=== PATIENT | male | born 1945 | race Caucasian/White ===

== ENCOUNTER → 2024-03-26 08:52 | Outpatient (REF) | payer OTHER, SELFPAY | LOC: HWRAD 08:52 | PROVIDERS: ATTENDING PHYSICIAN Internal Medicine Cardiovascular Disease; FAMILY PHYSICIAN Family Medicine | DX: I65.21 Occlusion and stenosis of right carotid artery (principal) | CPT/HCPCS: 93880 ==

== ENCOUNTER 2024-04-09 16:40 | Inpatient (IN) | payer OTHER, SELFPAY ==
[2024-04-09 14:33] VITALS: BP 189/115
[2024-04-09 14:56] LABS: % Basophils 1.1 % (0-2); % Eosinophils 2.5 % (0-6); % Immature Granulocytes 0.3 % (0-0.5); % Lymphocytes 23.2 % (20.5-51.1); % Monocytes 9.6 % (1.7-9.3); % Neutrophils 63.3 % (42.2-75.2); Absolute Basophils 0.1 10^3/uL (0-0.2); Absolute Eosinophils 0.2 10^3/uL (0-0.7); Absolute Lymphocytes 2.1 10^3/uL (1.2-3.4); Absolute Monocytes 0.9 10^3/uL (0.1-0.6); Absolute Neutrophils 5.6 10^3/uL (1.4-6.5); Hematocrit 41.9 % (39.0-52.0); Hemoglobin 14.2 g/dL (13.0-18.0); Mean Corp Hgb Conc. 33.9 g/dL (33.0-37.0); Mean Corpuscular Hgb 28.5 pg (27.0-31.0); Mean Platelet Volume 10.1 fL (7.4-10.4); Nucleated Red Blood Cells % 0 % (-); Platelet Count 307 10^3/uL (130-400); Red Blood Cell Count 4.99 10^6/uL (4.70-6.10); Red Cell Dist. Width 14.6 % (11.5-14.5); White Blood Cell Count 8.8 10^3/uL (4.8-10.8)
[2024-04-09 15:13] LABS: ALT (SGPT) 35 U/L (0-50); AST (SGOT) 35 U/L (17-59); Albumin 4.3 g/dl (3.5-5.0); Alkaline Phosphatase 93 U/L (38-126); Blood Urea Nitrogen 19 mg/dl (9-20); Calcium 10.3 mg/dl (8.4-10.2); Carbon Dioxide 27 mmol/L (22-30); Chloride 105 mmol/L (98-107); Glucose 103 mg/dl (70-99); Potassium 4.8 mmol/L (3.5-5.1); Sodium 140 mmol/L (135-145); Total Bilirubin 0.6 mg/dl (0.2-1.3); Total Protein 7.2 g/dl (6.3-8.2); eGFR > 60.00
[2024-04-09 15:25] LABS: Troponin I < 0.012 ng/ml
[2024-04-09 15:34] LABS: APTT 33.1 Sec (23.4-35.0)
--- NOTE | 2024-04-09 15:39 | HPS.HSE ---
Addendum entered and electronically signed by Maddy Muro MD 04/09/24 17:00:
I saw and examined the patient.
The HEAD OF LOSS PREVENTION's note was reviewed and I agree with the note.
Comment: Patient with known CAD prior PCI, HDL, JOSE ANGEL s/p cartoid stenting now with cp. He has a high risk stress test today. Currently cp free but with cp just walking around. RRR, lungs cta no le edema. Stress lexiscan, marked ecg changes but no
stress images taken. Trop negative. will plan for cath in am for UA.
Original Note:
Family Physician
-
Family Physician: Dr. Marcial Barney
Railroad Surveyor: Dr. Kyree Ordonez
Chief Complaint
-
Chest pain
History of Present Illness
Louis Colorado is an 78-year-old male with CAD (cardiac arrest with BMS to circumflex 2009, complex RCA intervention 2020), dyslipidemia (statin intolerant), asthma, prediabetes, mild mitral regurgitation, and right ICA stenosis s/p stenting
(11/23/2023), saw Dr. Ordonez in the outpatient setting earlier this month and endorsed upper back pain that radiated into his jaw with exertion. He was found to have a significantly abnormal stress test and was referred to the ER for full
evaluation. He reports for the past few weeks he has been having anterior upper back pain. It radiates up his neck and into his jaw. This happens when he goes for walks. He is having pain 2-3 times per week. He has not taken any nitroglycerin.
He gets some relief when he puts his arms over his head. He gets full relief with rest. He denies associated symptoms of diaphoresis, nausea, and dizziness. He is currently chest pain-free.
Medical History
Past Medical History
Past Medical History: Reports Asthma, CAD, HTN and Hypercholesterolemia
Past Surgical History: Reports None and Other
Social History
Tobacco: Smoker (Cigar)
Drug: None
Personal:
Living: With Family
Employment: Retired
Family History
Family History: Not pertinent
Allergies / Home Medications
Allergies reflects when Allergies were last updated in [facility].
Home Medications with original date entered in [facility]
Allergy/Medication List:
Allergies:
Statins cause myalgias
Home medication list: Vitamin C 1000 mg daily
Aspirin 325 mg daily
Clopidogrel 75 mg daily
CO every 10 100 mg daily
Colchicine 0.6 mg p.o. daily as needed gout flare
Diltiazem 180 mg daily
Advair 1 inhalation twice daily as needed shortness of breath
Irbesartan 150 mg p.o. daily
Multivitamin 1 tablet p.o. daily
Fish oil 1 capsule p.o. daily
Turmeric root 500 mg p.o. daily
Nitroglycerin 0.4 mg sublingual every 5 minutes x 3 as needed chest pain
Review of Systems
-
History Source: Patient
A 12 point ROS was completed and negative except as noted: Yes
Constitutional: Reports No Symptoms
EENT: Reports No Symptoms
Respiratory: Reports No Symptoms
Cardiac: Reports See HPI
Abdomen/GI: Reports No Symptoms
: Reports No Symptoms
Musculoskeletal: Reports See HPI
Skin: Reports No Symptoms
Neurological: Reports No Symptoms
Endocrine: Reports No Symptoms
Hematologic/Lymphatic: Reports No Symptoms
Psych: Reports No Symptoms
Physical Exam
Vital Signs
Vital Signs
Temp Pulse Resp BP Pulse Ox
98.3 F 80 18 189/115 97
04/09/24 14:33 04/09/24 14:33 04/09/24 14:33 04/09/24 14:33 04/09/24 14:33
Physical Exam
General: Well Developed, Well Nourished, No Apparent Distress, Comfortable and Conversant
HEENT: NormoCephalic, Anicteric, Moist mucous membranes and Atraumatic
Respiratory: Clear and Non Labored Respirations
Cardiac: S1/S2 and Regular Rhythm; No Murmur or Peripheral Edema
Breast: Deferred by me
GI: Soft, Non Tender, Non Distended and Normal Bowel Sounds
Rectal: Deferred by Provider
Genito-urinary: Deferred by me
Musculoskeletal: No Clubbing, No Cyanosis and No Edema
Skin: Warm and Dry
Hematologic/Lymphatic: No Lymphadenopathy
Psych: Calm
Laboratory Results
-
04/09/24 14:42
04/09/24 14:42
Laboratory Results
Total Bilirubin 0.6 mg/dl (0.2-1.3) 04/09/24 14:42
AST 35 U/L (17-59) 04/09/24 14:42
ALT 35 U/L (0-50) 04/09/24 14:42
Alkaline Phosphatase 93 U/L (38-126) 04/09/24 14:42
Troponin I < 0.012 ng/ml 04/09/24 14:42
Data Reviewed
-
Diagnostic Radiology: Report Reviewed by me (EKG: Sinus rhythm, rate 78)
Medical Tests (Nuc Med, Echo, EKG etc): Report Reviewed by me (Prior cardiac catheterizations and echo as above.)
Lab Data: Labs Reviewed by me
Old Records: Reviewed
Impression/Plan
-
BACKGROUND: 78M with CAD, dyslipidemia (statin intolerant), asthma, prediabetes, mild mitral regurgitation, and right ICA stenosis s/p stenting (11/23/2023), saw Dr. Ordonez in the outpatient setting earlier this month and endorsed upper back pain
that radiated into his jaw with exertion. He was found to have a significantly abnormal stress test and was for to the ER for full evaluation.
Railroad Surveyor: Formerly Dr. Brooks, now Dr. Ordonez
IMPRESSION/PLAN:
ACS
-Marked abnormal stress (3-4mm ST depression inferolateral & 2-3mm ST elevation in AVR) with chest pain
-Continue aspirin and start heparin gtt
-Chest pain free, will start nitroglycerin gtt if needed
-Trend EKG and troponin
-No beta yury due to wheezing in the past (asthma)
-NPO after midnight, cardiac catheterization tomorrow
-Echocardiogram
CAD
-Cardiac arrest 10/2010 with BMS to circumflex
-Shortness of breath 01/2021 with complex RCA intervention & periprocedural OR
-Statin intolerant, refused PCSk9 in the outpatient setting
HTN, triage BP 189/115, follow
Asthma
Type II DM, update Hgba1c
Right ICA stenosis S/P stenting (11/23/2023), on DAPT
HLD, intolerance to statin (myalgia), refused PCSK9 in the outpatient setting, update fasting lipid panel
Mild mitral regurgitation
SUBJECTIVE:
Currently chest pain free.
[2024-04-09 16:06] VITALS: BMI 27.1
--- NOTE | 2024-04-09 16:21 | ED.GENMED ---
History of Present Illness
General
Chief Complaint: Cardiac Symptoms
Source: patient
Time Seen by Provider: 04/09/24 15:51
Travel History
Have you had any contact with someone who has COVID-19?: No
Do you have any symptoms of coronavirus? Fever > 100 degrees, chills, cough, shortness of breath, sore throat, loss of taste or smell, muscle aches, or headache?: No
History of Present Illness
History of Present Illness:
78-year-old male presents to the emergency room after being referred here by cardiology. Patient was initially seen by cardiology in early March for upper back and neck pain which did not occur with exertion. Stress test was arranged for today.
During his stress test the patient developed chest pain and had significant EKG changes which included ST depression inferiorly. Chest discomfort went away with rest. Patient does have a history of coronary artery disease with multiple stents.
Currently patient is pain-free. Patient states he was having upper back pain and neck pain which occurred when walking between 1/4 mile to half a mile.
Past History
Past History
ED Past Medical History: None
ED Past Surgical History: None
Social History
Tobacco: Non-smoker
Phy Exam
Physical Exam
Physical Exam:
General: Awake, Alert, Oriented X3. No acute distress.
Vitals: unremarkable
Head: Atraumatic
Eyes: Pupils equal, EOMI
Throat: Airway intact, no exudates
Neck: Trachea midline
Lungs: Clear and equal b/l
Heart: Regular rate, no murmurs
Abd: Soft, Nontender, No pulsatile mass
Neuro: Nonfocal
Skin: Warm, dry, no rash
Extremities: pulses equal b/l, no edema
Course
Orders/Labs/Results
Orders:
Orders
04/09/24 14:37
Electrocardiogram (*1) Urgent
Reason for Study: Chest Pain
EKG- Treatment ONCE
CR Chest - 2 Views Urgent
Comment:
Reason For Exam: chest pain
04/09/24 14:42
Complete Blood Count/With Diff Urgent
Comprehensive Metabolic Panel Urgent
PTT Urgent
Troponin I Urgent
04/09/24 Dinner
Cholesterol Lowering
At Your Request: Full Participation
Cholesterol Lowering: Sodium, 2 Gram
04/09/24 15:32
Admit/Transfer Patient As Directed
Co-Sign Provider:
Level of Care: Inpatient admission
Assign to:: IVU
Physician / Group: CBC
Diagnosis: ACS
Reason for Hospitalization: Progressive angina
Expected length of stay greater than two midnights?: Yes
ELOS- Estimated Length of Stay in days: 3
I certify the patient meets the requirements for IP care: Yes
04/09/24 15:33
Code Status As Directed
Resuscitation Status: Full Code
04/09/24 16:18
Heparin Protocol- PTT Orders As Directed
PTT per Heparin protocol: -Obtain CBC and baseline PTT - if not already collected.
-Obtain PTT 6 hours from start of infusion. Then, every 6 hours until 2 consecutive
PTT's are therapeutic. Then, PTT Daily.
-With each rate change, obtain PTT every 6 hours until 2 consecutive PTT's are
therapeutic. Then, PTT Daily.
Notify MD As Directed
Notify physician if: PTT is greater than or equal to 200.
04/09/24 16:19
Heparin 4,000 units IV NOW STA
Nursing to Place Non Medication Order As Directed
Physician Order: PTT 6 hours after initial start of Heparin infusion
Above order entered?: Yes
04/09/24 16:30
Heparin 85001 Units/250 ml 25,000 units in 250 ml IV PER PROTOCOL
Weight to be used for heparin protocol in kilograms (kg):: 78.3
Protocol:: Cardiac Tx/Acute Coronary
PTT Goal Range to be used:: PTT 73 to 111 seconds
Order type:: Initial
INITIAL Infusion Dose (UNITS/KG/hr) & then follow protocol:: 12 units/kg/hr
Infusion Dose in UNITS/hr & then follow protocol (UNITS/hr):: 950
INFUSION RATE in mL/hr & then follow protocol (mL/hr):: 9.5
PTT less than or equal to 64 seconds:: Increase rate by 200 units/hr (+ 2 mL/hr)
PTT 64.1 to 72.9 seconds:: Increase rate by 100 units/hr (+ 1 mL/hr)
PTT 73 to 111 seconds:: Target Range. No change in rate.
PTT 111.1 to 130.9 seconds:: Decrease rate by 100 units/hr (- 1 mL/hr)
PTT 131 to 199.9 seconds:: HOLD for 1 hr. Then decrease rate by 200 units/hr (- 2 mL/hr)
PTT greater than or equal to 200 seconds:: HOLD for 2 hrs & Notify Provider. Then decrease by 200 units/hr (-
2 mL/hr)
Lab follow-up:: Each change, PTT q6h until 2 consecutive are therapeutic. Then PTT
daily.
04/09/24 17:00
Flush (0.9% Sodium Chloride) [Flush (Nss)] See Dose Instructions IV PER PROTOCOL
04/09/24 20:45
Electrocardiogram (*1) Q6H
Reason for Study: Chest Pain
Comment: at admission and Q6H for total of 3, to be done with each troponin
Acetaminophen [Tylenol] 650 mg PO Q4HPRN PRN
04/09/24 20:45
Echo 2D MMode Color/Doppler Routine
Reason for Study: chest pain
VTE Contraindication Routine
VTE Mechanical Device Contraindication: Medical Contraindication
Pharmocologic Contraindication: Medical Contraindication
Activity As Directed
Activity Level: Bathroom Privileges
ECG as needed As Directed
ECG as needed for:: Chest Pain
INT (Intravenous Needle Therapy) As Directed
Comment: maintain peripheral IV access
Intake/ Output As Directed
Frequency: Per unit guidelines
Vital Signs As Directed
Frequency: q4h
Weight As Directed
Frequency: Once
Type of Scale: Standing Scale
04/09/24 21:48
Glycohemoglobin (HgbA1c) Routine
Troponin I Q6H
Comment: at admit & Q3H for 3 total including ED draws, obtain ECG with each level
04/10/24 02:45
Electrocardiogram (*1) Q6H
Reason for Study: Chest Pain
Comment: at admission and Q6H for total of 3, to be done with each troponin
Troponin I Q6H
Comment: at admit & Q3H for 3 total including ED draws, obtain ECG with each level
04/10/24 Breakfast
NPO
Allow oral meds: Yes
Allow clear liquids: No
NPO with Ice Chips: No
NPO for procedure after (time): Midnight for cardiac cath
Cardiovascular Evaluation IN AM
04/10/24 08:45
Electrocardiogram (*1) Q6H
Reason for Study: Chest Pain
Comment: at admission and Q6H for total of 3, to be done with each troponin
04/11/24 06:00
Complete Blood Count/No Diff Q2D
Comment: Notify MD if platelet count is <130,000 or decreases by 50% from baseline
04/13/24 06:00
Complete Blood Count/No Diff Q2D
Comment: Notify MD if platelet count is <130,000 or decreases by 50% from baseline
04/15/24 06:00
Complete Blood Count/No Diff Q2D
Comment: Notify MD if platelet count is <130,000 or decreases by 50% from baseline
04/17/24 06:00
Complete Blood Count/No Diff Q2D
Comment: Notify MD if platelet count is <130,000 or decreases by 50% from baseline
04/19/24 06:00
Complete Blood Count/No Diff Q2D
Comment: Notify MD if platelet count is <130,000 or decreases by 50% from baseline
04/21/24 06:00
Complete Blood Count/No Diff Q2D
Comment: Notify MD if platelet count is <130,000 or decreases by 50% from baseline
04/23/24 06:00
Complete Blood Count/No Diff Q2D
Comment: Notify MD if platelet count is <130,000 or decreases by 50% from baseline
04/25/24 06:00
Complete Blood Count/No Diff Q2D
Comment: Notify MD if platelet count is <130,000 or decreases by 50% from baseline
Abnormal Lab Results
04/09/24
14:42
RDW 14.6 H %
(11.5-14.5)
Absolute Monos (auto) 0.9 H 10^3/uL
(0.1-0.6)
Monocytes % 9.6 H %
(1.7-9.3)
Glucose 103 H mg/dl
(70-99)
Calcium 10.3 H mg/dl
(8.4-10.2)
04/09/24 14:42
04/09/24 14:42
Vital Signs
Initial and Last Documented VS:
Initial Vital Signs
Temp Pulse Resp BP Pulse Ox
98.3 F 80 18 189/115 97
04/09/24 14:33 04/09/24 14:33 04/09/24 14:33 04/09/24 14:33 04/09/24 14:33
Last Documented Vital Signs
Temp Pulse Resp BP Pulse Ox
98.0 F 73 16 149/69 97
04/09/24 20:13 04/09/24 21:15 04/09/24 20:13 04/09/24 19:00 04/09/24 20:13
MDM/Problems Addressed
Differential Diagnosis Includes:
Unstable angina, NSTEMI, musculoskeletal chest pain
MDM/Problems Addressed:
Patient presents from having an outpatient stress test which was grossly abnormal. Here the patient is pain-free and hemodynamically stable. Plan is for hospitalization and cath tomorrow. Will start the patient on heparin tonight. He did receive
aspirin cardiac testing.
Chronic conditions affecting care: HTN and CAD
Acute Exacerbation and/or Progression of Chronic Illness: CAD
*Radiology
Radiology exam reviewed: preliminary read by ED provider (No acute disease by my personal review)
*Pulse Oximetry
Patient hypoxic: no
*EKG
Interpreted by ED Provider?: Yes
Interpretation: normal
Heart Rate: 72
Rate: normal
Rhythm: sinus
Wirt: normal axis
Interval: normal interval
QRS Pattern: normal QRS
Ischemia: no ischemia
*Building Cleaning Supervisor Interpretation
Rate: normal
Interpretation: normal
Rhythm: sinus
*Critical Care Note
Total Time (30-74mins, 75-104mins- exclusive of procedures): Not Applicable
ED Attending Note
-
Portions of this chart may have been created with voice recognition software.� Occasional wrong word or��sound alike� substitutions may have occurred due to the inherent limitations of voice recognition software.
Discharge Plan
Departure
Patient Disposition: Admit
Date of Disposition: 04/09/24
Time of Disposition: 16:24
Admit to: IVU
Presentation/result/management discussed w/ accepting MD/DO: Hospitalist
Condition: Fair
Discharge Problem:
Angina pectoris, unstable
Interventions
Interventions:
*Risk Screen - Suicide Last Done: 04/09/24 20:16
*General Assessment Last Done: 04/09/24 14:33
*Neglect/Abuse Screening Last Done: 04/09/24 14:33
ED- Fall Risk Assessment Last Done: 04/09/24 16:08
*ED COVID-19 Vaccine History Last Done: 04/09/24 20:16
*Nursing Disposition Last Done: 04/09/24 19:58
ED- Cardiac Assessment Last Done: 04/09/24 16:07
ED- Pulmonary Assessment Last Done: 04/09/24 16:07
Discharge Date and Time
Discharge Date/Time: 04/09/24 19:59
[2024-04-09] MEDS: HEPARIN 4000 UNITS IV (16:46)
[2024-04-09] MEDS: HEPARIN 25000 UNITS/250 ML IV (16:51)
[2024-04-09 17:00] VITALS: BP 138/94
[2024-04-09 18:00] VITALS: BP 157/92
[2024-04-09 19:00] VITALS: BP 149/69
[2024-04-09 20:15] VITALS: BMI 27.2
[2024-04-09 21:49] VITALS: BP 160/84
[2024-04-09 22:13] LABS: APTT 36.8 Sec (23.4-35.0)
[2024-04-09 22:25] LABS: Troponin I 0.032 ng/ml
--- NOTE | 2024-04-09 22:59 | PTCARENOTE ---
Received pt from ED. Oriented pt to room. Heparin gtt infusing at 950 units/hr. Pt has no c/o CP/discomfort at this time. Ambulatory to bathroom w/ steady gait. Daughter at bedside. EKG and labs obtained. Currently in bed; call emy w/in reach.
[2024-04-10] VITALS (15 sets, daily range): BP systolic 104–159; BP diastolic 46–108; BMI 27.2
[2024-04-10 04:33] LABS: APTT 75.6 Sec (23.4-35.0)
[2024-04-10 04:41] LABS: HDL Cholesterol 43 mg/dl; LDL Cholesterol, Calculated 127 mg/dl; Total Cholesterol 193 mg/dl (50-199); Triglyceride 119 mg/dl (10-149); Very Low Density Lipoprotein 23 mg/dl (0-30)
[2024-04-10 04:43] LABS: Troponin I 0.022 ng/ml
--- NOTE | 2024-04-10 07:24 | PTCARENOTE ---
Assumed care of patient. Walking rounds completed with previous RN. Pt assessed while he was sitting on the side of the bed. Pt alert and oriented x4. Pt denies chest pain, shortness of breath, and nausea. SIMMONS with equal strength throughout. NSR on
tele with rates in the 70s. BP stable. Bilateral radial and DP pulses palpable. No edema noted. POX 98% on RA. Lungs clear throughout. No cough. +BS. last BM 04/09. Denies issues voiding. No skin issues noted. Right AC PIV intact infusing heparin gtt
at 1150units/hour. See MAR for medication administration. See worklist for complete nursing assessment. Plan of care reviewed and patient in agreement.
[2024-04-10 09:01] LABS: Glycohemoglobin (HgbA1c) 6.7 % (4.0-5.6)
[2024-04-10] MEDS: VITAMIN C 1000 MG PO (09:27)
[2024-04-10] MEDS: THERAGRAN 1 TABLET PO (09:27)
[2024-04-10] MEDS: PLAVIX 75 MG PO (09:27)
[2024-04-10] MEDS: LOW STRENGTH ASPIRIN 81 MG PO (09:27)
[2024-04-10] MEDS: CARDIZEM CD 180 MG PO (09:28)
[2024-04-10] MEDS: AVAPRO 150 MG PO (09:28)
--- NOTE | 2024-04-10 09:45 | CM ---
Reviewed chart. Met with and Mrs. Colorado to review discharge plans. He states prior to admission he resides with his spouse in a two story home with three steps to enter. He states he has a bedroom/full bathroom on each level. He states
prior to admission he was independent with ambulation and adls. He states he does not have any DME in the home. He states he has a prescription plan and uses [facility]. Medical work-up in progress. The discharge plan is to return home
with his spouse when medically stable.
--- NOTE | 2024-04-10 14:39 | W.PN.CD ---
Today's Communication / Plan
-
Cardiac catheterization today.
Impression / Plan
-
Impression/Plan: 78 y/o male with HTN/statin intolerance, asthma, prediabetes, JOSE ANGEL s/p carotid artery stent and CAD s/p prior PCI to the LCx (STEMI/cardiac arrest 2009), LAD (STEMI, 2006) and RCA (01/10/2021) admitted with chest pain and a high risk
stress test.
#CAD/Abnormal stress test
-Long history of CAD.
-S/P prior PCI to LAD for STEMI, 2006.
-S/P prior PCI to LCx for STEMI/cardiac arrest, 2009.
-S/P prior PCI to RCA for angina ([employer] 2.5 x 16 SANKET to dRCA, 2.25 x 16 SANKET to mRPL), 01/10/2021.
-Stress test from yesterday shows [address] depressions in inferolateral leads and [address] elevation in aVR. No stress imaging obtained. Patient left office AMA.
-Cardiac catheterization today to clarify coronary anatomy.
#HLD/Statin intolerance
-Chronic. Uncontrolled.
-Consider ezetimibe and PCSK9 inhibitors.
-Goal LDL < 55.
#JOSE ANGEL
-Chronic, stable.
-S/P carotid artery stent (Precise 9.0 x 30 self-expanding stent).
-Carotid duplex shows patent stent without restenosis.
-Previously on DAPT. He missed one dose of clopidogrel. Probably ok to stop DAPT from a CASt standpoint, though he may need it for a coronary issue.
#HTN
-Moderately uncontrolled.
-We will adjust BP medications post cath.
Subjective/Interval History:
No acute events.
Chest pain free.
Moderately hypertensive overnight.
Physical Exam
Vital Signs/Labs
Vital Signs
Temp Pulse Resp BP Pulse Ox
36.5 C 60 14 154/82 98
04/10/24 11:36 04/10/24 11:36 04/10/24 11:36 04/10/24 11:36 04/10/24 11:36
04/09/24 04/10/24 04/11/24
11:59 11:59 11:59
Actual Weight 78.7 kg
04/09/24 14:42
04/09/24 14:42
APTT 81.0 Sec (23.4-35.0) H 04/10/24 09:39
Triglycerides 119 mg/dl (10-149) 04/10/24 03:46
LDL Cholesterol, Calc 127 mg/dl 04/10/24 03:46
VLDL Cholesterol, Calc 23 mg/dl (0-30) 04/10/24 03:46
HDL Cholesterol 43 mg/dl 04/10/24 03:46
LAB Results
04/09/24 04/09/24 04/10/24
14:42 21:48 03:46
Troponin I < 0.012 0.032 D 0.022 D
Physical Exam
Constitutional: No acute distress and Comfortable
EENT: Anicteric and Moist mucous membranes
Cardiovascular: Rhythm & rate is regular, Pedal edema is absent, JVD pressure is normal, S1S2 is normal and Murmur/rub/gallop absent
Respiratory: Respiratory effort normal, Lungs clear to auscul., Wheeze Absent, Crackles Absent and Rhonchi Absent
GI: Soft, Distention absent, Flat, Non tender and Normal bowel sounds
Neuro/Psych: AO x 3
Data Reviewed
-
Date of Service: April 10, 2024
Medical Decision Making: Reviewed Test Results, Independent Historian Assessment, Test Interpretation and Review of Case with other Provider
EKG: Tracing Personally Visualized and interpreted and Report Reviewed by me
Echo: Tracing Personally Visualized and interpreted and Report Reviewed by me
X-Ray/CT/US/MRI/NUC/PET: Image Personally Visualized and interpreted and Report Reviewed by me
Medical Tests (PFT, Pathology etc): Image Personally Visualized and interpreted and Report Reviewed by me
Labs: Labs Reviewed by me
--- NOTE | 2024-04-10 15:30 | PTCARENOTE ---
Pt received back from coreroom foundry laborer. NSR on tele with BP stable. POX 97% on RA. Right radial puncture site with TR band in place. Good radial pulse. No complaints at this time. Family at bedside.
--- NOTE | 2024-04-10 15:32 | ITS.CL.CATH ---
Mechanical Service Specialist - Catheterization
Cardiac Catheterization
Procedure Report:
CARDIAC CATHETERIZATION REPORT
Date of Procedure: 04/10/2024
Referring: Damien Herrmann M.D.
INDICATION: High risk stress test.
PROCEDURE:
1. Left heart catheterization.
2. Coronary angiography
3. Successful IFR of the mid LAD.
4. Successful IFR of the distal LAD.
ACCESS:
6 [place] right radial artery.
CATHETERS:
1. 5 [place] JR4.
2. 5 [place] JL 3.5.
3. 6 [place] EBU 3.5 guiding catheter.
HEMODYNAMIC DATA
Weight (kg): 78.5
AO (s/d/x, mmHg): 101/61/77
LV (s/x mmHg): 101/11
LEFT VENTRICULOGRAPHY: Not performed.
CORONARY ANGIOGRAPHY
Dominance: Right.
Left Main: Short, bifurcating vessel. There is no coronary artery disease.
LAD: Normal size vessel giving rise to several small diagonals. There is a 40-50% lesion in the ostium of the vessel. Patent stents with varying degrees of in-stent restenosis are present in the proximal vessel. There is progressive, 50%
in-stent restenosis in the distal aspect of the mid LAD stent. There is a 50% lesion immediately proximal to the second diagonal. There is a 40% tubular lesion in the distal vessel, proximal to the apex.
Ramus: Congenitally absent.
Circumflex: Large size, nondominant vessel giving rise to 1 significant obtuse marginal. A patent stent is present in the circumflex with approximately 10% in-stent restenosis. The true AV groove circumflex rapidly tapers after the origin of the
obtuse marginal. The obtuse marginal bifurcates into an upper and lower branch. There is a 70% lesion in the mid section of the lower marginal branch.
RCA: Normal size, dominant vessel. The proximal vessel sits low in the coronary cusp and is severely tortuous with a montez's crook. There is a 70% lesion in the proximal vessel. There is a long, tubular 50% lesion in the distal vessel
around the crux. A patent stent is visible in the distal vessel. Beyond the distal RCA, there is subtotal occlusion of the small RPDA with FERNANDO I flow and the entire RPL branch, again with FERNANDO I flow. The right posterolateral branch is supplied
by collaterals from the LAD.
INTERVENTION(S)
1. Successful IFR of the mid LAD, demonstrating nonocclusive disease (IFR = 0.93).
2. Successful IFR of the distal LAD, demonstrating occlusive disease (IFR = 0.87).
Narrative:
The decision was made to perform physiologic testing. The diagnostic catheter was removed over a wire and exchanged for a(n) 6 [place] EBU 3.5 guiding catheter. The guiding catheter was advanced into the ascending aorta and seated in the left main
coronary artery. Additional heparin was given to obtain an ACT greater than 250 seconds. An iFR wire was zeroed outside of the body, then inserted into the guiding sheath. The wire was advanced and the transducer was normalized just outside of the
guiding catheter tip. The wire was advanced into the mid LAD. Three iFR measurements were taken. The lesion was determined to be nonocclusive (IFR = 0.93).
The wire was then advanced beyond the 50% lesion that was proximal to the second diagonal. iFR was repeated 3 times. The lesion was determined to be occlusive (IFR = 0.87). The IFR wire was pulled back slowly, confirming fidelity of measurement
and also demonstrating a progressive increase in the ratio over the course of the LAD with multiple small step ups, notably within the in-stent restenosis. This was consistent with ischemia in the sum total of those lesions.
Closure Device: Vascular band.
Radiation (mGy): 427.16
DAP (cm2.Gy): 27.5641
Fluoroscopy time (minutes): 5.1
Sedation time (minutes): 41
CONCLUSIONS
1. Right dominant circulation with subtotal chronic occlusion of the RPDA and RPL with collaterals from the LAD, a 70% lesion in the lower branch of the major obtuse marginal, 40-50% narrowing in the ostium of the LAD, progressive, 50% in-stent
restenosis in the distal aspect of the mid LAD stent, an occlusive 50% lesion immediately proximal to the second diagonal (IFR = 0.87) and a tubular, 40% lesion in the distal LAD, proximal to the apex.
2. Normal filling pressures (LVEDP = 11 mmHg at 78.5 kg).
RECOMMENDATIONS:
1. Expectant management after cardiac catheterization via right radial approach.
2. Limited weight bearing on the right wrist for one week.
3. Consultation with CT surgery regarding optimal revascularization strategy.
4. Aggressive risk factor modification including incorporation of PCSK9 inhibitors in the setting of statin intolerance.
5. Hold clopidogrel at this time.
Copy to: Damien Herrmann M.D., Kyree Ordonez M.D., Marcial Barney, D.O.
Samuel Fried DO, FACC, FACP
--- NOTE | 2024-04-10 15:33 | CONSULT.CT ---
Consultation
-
Date/Time Consultation Requested: 04/10/24
Date/Time Consultation Performed: 04/10/24 1545
Requesting Provider: Dr. Samuel Fried MD
Performing Provider: Nai Bragg PA-C
Reason for Consultation: Coronary artery disease evaluate for coronary artery revascularization
Patient History
Physicians
Family Physician: Dr. Marcial Barney MD
Outpatient Coat Repair Inspector: Dr. Kyree Ordonez MD.
Inpatient Coat Repair Inspector: [facility]-Dr. Gloria Muro MD.
History of Present Illness
Patient is extremely pleasant 78-year-old male with complex PMH of CAD with multiple STEMI's/PCI and SANKET. Patient has a history of STEMI s/p PCI LAD 2006, STEMI status postcardiac arrest with BMS to circumflex 2009, complex RCA intervention
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
Patient follows with Dr. Kyree Ordonez MD. and was seen earlier this month with complaints of upper back pain that radiated to his jaw with exertion. Outpatient stress test was found to be abnormal and he was referred to the emergency room for
full evaluation. Further workup in the emergency department revealed troponin's negative x 3, and an EKG showing sinus rhythm (70 bmp), with nonspecific T wave abnormality. Given the patient's cardiac history and symptoms, subsequent cardiac
catheterization was performed.
Cardiac catheterization by Dr. Samuel Fried revealed MV CAD. Please see Dr. Fried's full report for complete details. CT surgery was consulted for coronary artery revascularization. Of note: patient has a history of SANKET and is on Plavix. He
was given Plavix this morning prior to procedure 04/10/24.
Echocardiogram: 04/10/24
EF 40-45%
Mild-Mod MR
Trace AI
Mild TR
LVSD: 41
LVDD: 53
PAP: 25-30
Cardiac Catheterization: 04/10/24
LM: No CAD
LAD: 40-50% ostium, varying degrees of in stent restenosis in proximal vessel
50% in stent restenosis mid. Mid and distal IFR negative demonstrating nonocclusive disease (0.93, 0.87)
D1: 50% prox
LCx: Patent stent w/ 10% in stent restenosis
OM: 70%
RCA: 70% prox with patent stent in distal vessel.
RPDA: subtotal occlusion w/ TI
Past Medical History
H/o STEMI s/p PCI LAD 2006
CAD w/ STEMI (cardiac arrest with BMS to circumflex 2009)
CAD with complex RCA intervention 01/10/2021
HTN
HLD (statin intolerant)
Asthma
Newly diagnosed NIDDMII with hemoglobin A1c of 6.7
Mild-moderate mitral regurgitation
Right ICA stenosis s/p stenting (11/23/2023)
Gout
Melanoma (left chest and back)
Past Surgical History
H/o STEMI s/p PCI LAD 2006
CAD w/ STEMI (cardiac arrest with BMS to circumflex 2009)
CAD with complex RCA intervention 01/10/2021
Right ICA stenosis s/p stenting (11/23/2023)
Dental History
Noncontributory
Family History
Mother: at Age (83) and Cause of (Pancreatic cancer)
Father: at Age (56) and Cause of (Massive myocardial infarction)
Family Medical History: CAD
Social History
Alcohol: None
Drug: None
Tobacco: Former Smoker (Quit 6 months ago. Smokes cigars only for 50+ years. Roughly 1-2 cigars per week only in weather permitting months)
Personal:
Living: With Spouse (has 3 daughters)
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
Allergies
Allergy/AdvReac Type Severity Reaction Status Date / Time
atorvastatin Allergy 'tore all Verified 04/09/24 16:20
my
ligaments'
Silafry-BKL-QpM Reductase Allergy myalgias Verified 04/09/24 14:33
Inhibitor and torn
ligaments
Home Medications
�Medication �Instructions �Recorded �Confirmed �Type
coenzyme Q10 100 mg capsule (Co 100 mg PO DAILY 01/10/21 04/09/24 History
Q-10)
turmeric root extract 500 mg 500 mg PO DAILY 01/10/21 04/09/24 History
capsule
clopidogrel 75 mg tablet 75 mg PO DAILY #90 tabs 01/11/21 04/09/24 Rx
nitroglycerin 0.4 mg sublingual 0.4 mg sublingual [id number] PRN 01/11/21 04/09/24 Rx
tablet chest pain #25 tabs
ascorbic acid (vitamin C) 1,000 mg 1,000 mg PO DAILY 11/23/23 04/09/24 History
tablet (Vitamin C)
colchicine 0.6 mg tablet 0.6 mg PO DAILYPRN PRN gout 11/23/23 04/09/24 History
fluticasone 100 mcg-salmeterol 50 1 inh inhalation BIDPRN PRN SOB 11/23/23 04/09/24 History
mcg/dose blistr powdr for
inhalation (Advair Diskus)
multivitamin 1 tab PO DAILY 11/23/23 04/09/24 History
omega 6-iqb-spb-fish oil 1,200 mg 1 cap PO DAILY ##0 11/23/23 04/09/24 History
(144 mg-216 mg) capsule (Fish Oil)
aspirin 325 mg tablet 325 mg PO DAILY 04/09/24 04/09/24 History
diltiazem HCl 180 mg 180 mg PO DAILY 04/09/24 04/09/24 History
capsule,extended release 24 hr
irbesartan 150 mg tablet 150 mg PO DAILY 04/09/24 04/09/24 History
Review of Systems
-
History Source: Patient
General: Reports Fatigue; Denies Fever, Weight Gain, Weight Loss or Night Sweats
HEENT: Denies Visual Changes, Dysphagia, Hoarseness or Sore Throat
Respiratory: Denies SOB, SHELBY, Cough, Asthma or PND
Cardiac: Reports Chest Pain and CAD; Denies Known Vascular Disease, Palpitations, Nausea, Vomiting, Diaphoresis or Edema
Abdomen/GI: Denies Abdominal Pain, Reflux, Indigestion, Diarrhea or BRBPR
: Denies Dysuria, Frequency, Incontinence or Hematuria
Musculoskeletal: Reports Myalgias and Arthralgias; Denies Edema
Skin: Denies Itching or Rash
Neurological: Denies CVA, TIA, Headaches, Syncope, Dizzy or Seizures
Vascular: Denies Claudication or PVD
Physical Exam
Vital Signs
Temp 97.7 F 04/10/24 11:36
Temp route: Oral 04/10/24 11:36
Pulse 60 04/10/24 11:36
Rhythm: Normal sinus rhythm 04/10/24 11:36
With- PVC's Monomorphic 04/09/24 21:45
Resp Rate 14 04/10/24 11:36
Blood pressure 154/82 04/10/24 11:36
Blood pressure extremity used: Left upper arm 04/10/24 11:36
Position: Lying 04/10/24 11:36
MAP (cuff-Hernesto Monitor) 102 04/10/24 11:34
SaO2 98 04/10/24 11:36
Oxygen Mode of Delivery Room air 04/10/24 11:36
Can the patient verbally communicate their pain? Yes 04/09/24 21:45
Actual Weight 173 lb 8.061 oz 04/10/24 03:49
Body Mass Index (BMI) 27.2 04/10/24 03:49
Labs
04/09/24 14:42
04/09/24 14:42
APTT 81.0 Sec (23.4-35.0) H 04/10/24 09:39
Hemoglobin A1c 6.7 % (4.0-5.6) H 04/09/24 21:48
Troponin I 0.022 ng/ml D 04/10/24 03:46
Diagnostic Studies
Echocardiogram: 04/10/24
EF 40-45%
Mild-Mod MR
Trace AI
Mild TR
LVSD: 41
LVDD: 53
PAP: 25-30
Cardiac Catheterization: 04/10/24
LM: No CAD
LAD: 40-50% ostium, varying degrees of in stent restenosis in proximal vessel
50% in stent restenosis mid. Mid and distal IFR negative demonstrating nonocclusive disease (0.93, 0.87)
D1: 50% prox
LCx: Patent stent w/ 10% in stent restenosis
OM: 70%
RCA: 70% prox with patent stent in distal vessel.
RPDA: subtotal occlusion w/ TI
Exam
General: Well Developed, Well Nourished, No Apparent Distress and Comfortable
HEENT: Normocephalic, Anicteric, Moist Mucous Membranes, PERRLA and EOMI
Neck: Trachea Midline; Negative Carotid Bruit
Respiratory: Clear; Negative Wheezes, Crackles, Rhonchi or Accessory Muscle Use
Cardiac: S1/S2 and Regular Rhythm; Negative Murmur, Rub or Gallop
GI: Soft, Non Tender, Non Distended and Normal Bowel Sounds
Rectal: Deferred by Provider
Skin: Warm and Dry; Negative Rash
Neuro: AO x 3 and CN X-XII Intact
Extremities: Negative Upper Level Edema, Lower Level Edema, Upper Level Cyanosis, Lower Level Cyanosis, Upper Level Clubbing or Lower Level Clubbing
Psych: Calm
Assessment / Plan
-
Assessment:
78 y/o male with PMH of:
CAD with multiple STEMI's/PCI and SANKET.
STEMI s/p PCI LAD 2006
STEMI status postcardiac arrest with BMS to circumflex 2009
Complex RCA intervention 01/10/2021
HTN/HLD (statin intolerant)
Asthma
Prediabetes
Mild-moderate mitral regurgitation
Right ICA stenosis s/p stenting 11/23/23
Gout
Melanoma (L chest and back).
Now found to have newly diagnosed:
NIDMII w/ HgbA1c 6.7
Progressing CAD (IFR negative showing nonocclusive stenosis with subtotal occlusion of RPDA)
Chronic Plavix therapy secondary to SANKET w/ last dose 04/10/24 at 09:30
Plan:
Patient's case to be discussed with attending physician. Further timing and plans for surgery will be determined after attending physicians full evaluation. In the meantime patient will undergo routine preoperative cardiothoracic surgery workup.
He will require a Plavix washout. STS risk stratification will be calculated. Continue heparin drip per cardiology.
--- NOTE | 2024-04-10 17:20 | W.PN.UPDATE ---
Update Note
Progress Note Update
Cardiac catheterization shows multivessel disease.
CT surgery consulted.
--- NOTE | 2024-04-10 22:56 | PTCARENOTE ---
right radial band removed. Sterile dressing applied. precautions reviewed, call quevedo in reach
[2024-04-11] VITALS (7 sets, daily range): BP systolic 128–146; BP diastolic 68–86; BMI 26.7
[2024-04-11 04:02] LABS: Hematocrit 39.1 % (39.0-52.0); Hemoglobin 13.4 g/dL (13.0-18.0); Mean Corp Hgb Conc. 34.3 g/dL (33.0-37.0); Mean Corpuscular Hgb 28.7 pg (27.0-31.0); Mean Corpuscular Volume 83.7 fL (80.0-94.0); Mean Platelet Volume 9.8 fL (7.4-10.4); Platelet Count 276 10^3/uL (130-400); Red Blood Cell Count 4.67 10^6/uL (4.70-6.10); Red Cell Dist. Width 14.6 % (11.5-14.5); White Blood Cell Count 7.1 10^3/uL (4.8-10.8)
[2024-04-11 04:13] LABS: INR 1.09; PT 13.9 Sec (11.4-14.6)
[2024-04-11 04:14] LABS: APTT 33.3 Sec (23.4-35.0)
[2024-04-11 04:25] LABS: ALT (SGPT) 27 U/L (0-50); AST (SGOT) 26 U/L (17-59); Albumin 3.6 g/dl (3.5-5.0); Alkaline Phosphatase 77 U/L (38-126); Blood Urea Nitrogen 19 mg/dl (9-20); Calcium 9.7 mg/dl (8.4-10.2); Carbon Dioxide 21 mmol/L (22-30); Chloride 109 mmol/L (98-107); Direct Bilirubin 0.3 mg/dl (0.0-0.4); Estimated Creatinine Clearance 50 ml/min; Glucose 101 mg/dl (70-99); Potassium 4.1 mmol/L (3.5-5.1); Sodium 140 mmol/L (135-145); Total Bilirubin 0.4 mg/dl (0.2-1.3); Total Protein 6.4 g/dl (6.3-8.2); eGFR > 60.00
[2024-04-11 08:02] LABS: ACT-LR - POC > 397 Seconds (116-155)
--- NOTE | 2024-04-11 08:14 | W.PN.CD ---
Today's Communication / Plan
-
-Stress test 04/09/[address] depressions in inferolateral leads and [address] elevation in aVR. No stress imaging obtained. Patient left office AMA.
-Cardiac catheterization yesterday revealed significant multivessel CAD; CT surgery consulted for CABG.
-Continue aspirin; Plavix being held for surgery.
-Statin-allergy.
-EF of 40-45% on echo yesterday with mild to moderate MR.
-Will change from Cardizem CD to Toprol-XL for GDMT.
Impression / Plan
-
Impression/Plan: 78 y/o male with HTN/statin intolerance, asthma, prediabetes, JOSE ANGEL s/p carotid artery stent and CAD s/p prior PCI to the LCx (STEMI/cardiac arrest 2009), LAD (STEMI, 2006) and RCA (01/10/2021) admitted with chest pain and a high risk
stress test.
#CAD/Abnormal stress test
-Long history of CAD.
-S/P prior PCI to LAD for STEMI, 2006.
-S/P prior PCI to LCx for STEMI/cardiac arrest, 2009.
-S/P prior PCI to RCA for angina ([employer] Synergy 2.5 x 16 SANKET to dRCA, 2.25 x 16 SANKET to mRPL), 01/10/2021.
-Stress test 04/09/[address] depressions in inferolateral leads and [address] elevation in aVR. No stress imaging obtained. Patient left office AMA.
-Cardiac catheterization yesterday revealed significant multivessel CAD; CT surgery consulted for CABG.
-Continue aspirin; Plavix being held for surgery.
-Statin-allergy.
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
-Previous EF was 55-60% on 10/31/2023.
-EF of 40-45% on echo yesterday with mild to moderate MR.
-Will change from Cardizem CD to Toprol-XL for GDMT.
-Continue ARB.
-Patient will need further GDMT as hospitalization progresses; will hold off for now, given need for CABG.
#HLD/Statin intolerance
-Chronic. Uncontrolled.
-Consider ezetimibe and PCSK9 inhibitors.
-Goal LDL < 55.
#JOSE ANGEL
-Chronic, stable.
-S/P carotid artery stent (Precise 9.0 x 30 self-expanding stent).
-Carotid duplex shows patent stent without restenosis.
-Previously on DAPT. He missed one dose of clopidogrel; holding Plavix as above.
#HTN
-Controlled.
-Continue Cardizem CD and irbesartan.
#DM
-New diagnosis; hemoglobin A1c 6.7%.
-Monitor blood glucose; SSI.
Subjective/Interval History:
No major events overnight. Patient denies any chest pain currently.
Physical Exam
Vital Signs/Labs
Vital Signs
Temp Pulse Resp BP Pulse Ox
97.8 F 57 18 128/76 97
04/11/24 07:09 04/11/24 07:09 04/11/24 07:09 04/11/24 07:09 04/11/24 07:09
04/10/24 04/11/24 04/12/24
06:59 06:59 06:59
Actual Weight 78.7 kg
04/11/24 03:50
04/11/24 03:50
PT 13.9 Sec (11.4-14.6) 04/11/24 03:50
INR 1.09 04/11/24 03:50
APTT Cancelled 04/11/24 06:00
Triglycerides 119 mg/dl (10-149) 04/10/24 03:46
LDL Cholesterol, Calc 127 mg/dl 04/10/24 03:46
VLDL Cholesterol, Calc 23 mg/dl (0-30) 04/10/24 03:46
HDL Cholesterol 43 mg/dl 04/10/24 03:46
LAB Results
04/09/24 04/09/24 04/10/24
14:42 21:48 03:46
Troponin I < 0.012 0.032 D 0.022 D
Physical Exam
Constitutional: No acute distress and Comfortable
EENT: Anicteric
Cardiovascular: Rhythm & rate is regular, Pedal edema is absent, Systolic murmur absent and Rub present
Respiratory: Respiratory effort normal and Lungs clear to auscul.
GI: Soft
Neuro/Psych: AO x 3
Other: Skin (Warm, dry, intact)
Data Reviewed
-
Date of Service: April 11, 2024
EKG: Tracing Personally Visualized and interpreted (Sinus rhythm)
Echo: Tracing Personally Visualized and interpreted (EF 40-45%; mild-moderate MR)
Medical Tests (PFT, Pathology etc): Discussed with Nurse and Discussed with Patient
Labs: Labs Reviewed by me
[2024-04-11] MEDS: AVAPRO 150 MG PO (08:17)
[2024-04-11] MEDS: THERAGRAN 1 TABLET PO (08:17)
[2024-04-11] MEDS: VITAMIN C 1000 MG PO (08:17)
[2024-04-11] MEDS: LOW STRENGTH ASPIRIN 81 MG PO (08:17)
[2024-04-11] MEDS: CARDIZEM CD 180 MG PO (08:18)
[2024-04-11] MEDS: FLUSH (NSS) 1 FLUSH IV (08:18)
--- NOTE | 2024-04-11 13:36 | W.PN.UPDATE ---
Update Note
Progress Note Update
I met with MR. Colorado and his family at the bedside. I reviewed his C, and the plan of care. I also discussed his case with our interventional cardiology team. He has a significant history of stents and CVD in the past. Will plan for CABG x 2-4
+ PRESTON Sibley on Sunday with me. Will come back on Sunday to discuss further and answer any questions. I reviewed the risks/benefits of surgical revascularization and quoted him a 3-3.5% mortality risk, formal STS risk to follow.
--- NOTE | 2024-04-11 13:48 | W.PN.UPDATE ---
Update Note
Progress Note Update
Tentative surgery date: Monday April 15, [address] England
Procedure Type:�Isolated CABG
PERIOPERATIVE OUTCOME ESTIMATE %
Operative Mortality 3.35%
Morbidity & Mortality 10.3%
Stroke 0.95%
Renal Failure 1.83%
Reoperation 2.97%
Prolonged Ventilation 6.52%
Deep Sternal Wound Infection 0.171%
Long Hospital Stay (>14 days) 6.37%
Short Hospital Stay (<6 days)* 30.2%
Clinical Summary
Planned Surgery: Isolated CABG, Urgent, First cardiovascular surgery
Demographics: 78 year old, White, male, 78.7kg, 170cm, BMI: 27.2 kg/m�
Lab Values: Creatinine: 1.2 mg/dL, Hematocrit: 41.9%, WBC Count: 8.8 10�/�L, Platelet Count: 071349 cells/�L
Substance Abuse: Current smoker
Risk Factors / Comorbidities: Hypertension, Family Hx of CAD
Vascular RF: Prior Carotid Surgery
Cardiac Status: Acute heart failure, NYHA Class I, Ejection Fraction = 40%
Coronary Artery Disease: 3 vessels diseased, Unstable Angina
Valve Disease: Trivial/Trace AR, Moderate MR, Mild TR
--- NOTE | 2024-04-11 15:13 | CM ---
Reviewed chart. Met with and Mrs. Colorado to review discharge plans. Prior to admission he resides with his spouse in a two story home with three steps to enter. He has a full bedroom/full bathroom on each level. Prior to admission he was
independent with ambulation and adls. He does not have any DME in the home. He has a prescription plan and uses [facility]. He wanted to want until Sunday to the [facility]. Tentatively schedule for CABG on Monday, April 15, 2024. Gave him the
Cardiothoracic Surgery Educational Booklet. Reviewed a home visit by the Cardiothoracic Transitional Care Nurse. He is agreeable to a home visit. Medical work-up in progress. The discharge plan is to return home with his spouse and a home visit by
the Cardiothoracic Transitional Care Nurse when medically stable.
--- NOTE | 2024-04-11 16:03 | PTCARENOTE ---
The patient has been ambulatory all shift in his room and in the halls. He has had no complaints of pain or SOB. He understands the severity of the condition of his heart and his need for surgery now. (This morning he was very reluctant to the idea
of surgery.) His vitals remain stable. Sinus lola with occasional PVCs and PACs have been noted on the monitor. His right wrist dressing was removed and is MARITA.
--- NOTE | 2024-04-11 20:18 | PTCARENOTE ---
Assumed care of pt from prev nsg shift; Pt AAOx3, w/no c/o CP or SOB. Pt ambulating in halls & room unassisted. Pt's VS stable w/HR in the 60's, BP 144/77. Pt is SB/SR on telemetry monitoring. No additional needs at this time. Plan of care ongoing.
[2024-04-12 03:07] VITALS: BP 138/85
[2024-04-12 05:41] VITALS: BMI 26.6
[2024-04-12 07:39] VITALS: BP 123/84
[2024-04-12] MEDS: THERAGRAN 1 TABLET PO (07:41)
[2024-04-12] MEDS: VITAMIN C 1000 MG PO (07:41)
[2024-04-12] MEDS: LOW STRENGTH ASPIRIN 81 MG PO (07:41)
[2024-04-12] MEDS: TOPROL XL 25 MG PO (07:41)
[2024-04-12] MEDS: FLUSH (NSS) 1 FLUSH IV (07:42)
--- NOTE | 2024-04-12 09:51 | W.PN.CD ---
Today's Communication / Plan
-
- Plan for CABG next week.
Impression / Plan
-
Impression/Plan: 78 y/o male with HTN/statin intolerance, asthma, prediabetes, JOSE ANGEL s/p carotid artery stent and CAD s/p prior PCI to the LCx (STEMI/cardiac arrest 2009), LAD (STEMI, 2006) and RCA (01/10/2021) admitted with chest pain and a high risk
stress test.
#CAD/Abnormal stress test
-Long history of CAD.
-S/P prior PCI to LAD for STEMI, 2006.
-S/P prior PCI to LCx for STEMI/cardiac arrest, 2009.
-S/P prior PCI to RCA for angina ([employer] Synergy 2.5 x 16 SANKET to dRCA, 2.25 x 16 SANKET to mRPL), 01/10/2021.
-Stress test 04/09/[address] depressions in inferolateral leads and [address] elevation in aVR. No stress imaging obtained. Patient left office AMA.
-Cardiac catheterization 04/10 revealed significant multivessel CAD; CT surgery consulted for CABG. - tentatively planned on 04/15/24
-Continue aspirin; Plavix being held for surgery.
-Statin-allergy.
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
-Previous EF was 55-60% on 10/31/2023.
-EF of 40-45% on echo with mild to moderate MR.
-Cardizem CD changed to Toprol-XL for GDMT.
-Continue ARB.
-Patient will need further GDMT as hospitalization progresses; will hold off for now, given need for CABG.
#HLD/Statin intolerance
-Chronic. Uncontrolled.
-Consider ezetimibe and PCSK9 inhibitors.
-Goal LDL < 55.
#JOSE ANGEL
-Chronic, stable.
-S/P carotid artery stent (Precise 9.0 x 30 self-expanding stent).
-Carotid duplex shows patent stent without restenosis.
-Previously on DAPT. He missed one dose of clopidogrel; holding Plavix as above.
#HTN
-Controlled.
-Continue Cardizem CD and irbesartan.
#DM
-New diagnosis; hemoglobin A1c 6.7%.
-Monitor blood glucose; SSI.
Subjective/Interval History:
No major events overnight. Patient denies any chest pain currently.
Physical Exam
Vital Signs/Labs
Vital Signs
Temp Pulse Resp BP Pulse Ox
97.6 F 73 20 123/84 97
04/12/24 07:38 04/12/24 07:39 04/12/24 07:38 04/12/24 07:39 04/12/24 07:38
04/11/24 04/12/24 04/13/24
06:59 06:59 06:59
Actual Weight 77 kg
04/11/24 03:50
04/11/24 03:50
PT 13.9 Sec (11.4-14.6) 04/11/24 03:50
INR 1.09 04/11/24 03:50
APTT Cancelled 04/11/24 06:00
Triglycerides 119 mg/dl (10-149) 04/10/24 03:46
LDL Cholesterol, Calc 127 mg/dl 04/10/24 03:46
VLDL Cholesterol, Calc 23 mg/dl (0-30) 04/10/24 03:46
HDL Cholesterol 43 mg/dl 04/10/24 03:46
LAB Results
04/09/24 04/09/24 04/10/24
14:42 21:48 03:46
Troponin I < 0.012 0.032 D 0.022 D
Physical Exam
Constitutional: No acute distress and Comfortable
EENT: Anicteric and Moist mucous membranes
Cardiovascular: Rhythm & rate is regular, Pedal edema is absent and JVD pressure is normal
Respiratory: Respiratory effort normal, Lungs clear to auscul. and Crackles Absent
GI: Soft, Non tender and Normal bowel sounds
Neuro/Psych: Alert, Oriented and AO x 3
Other: Cath Site
Data Reviewed
-
Date of Service: April 12, 2024
Medical Decision Making: Reviewed Test Results and Independent Historian Assessment
EKG: Tracing Personally Visualized and interpreted
Echo: Report Reviewed by me
Labs: Labs Reviewed by me
Old Records: Reviewed
[2024-04-12] MEDS: AVAPRO 150 MG PO (10:26)
[2024-04-12 11:15] VITALS: BP 139/74
[2024-04-12 15:52] VITALS: BP 131/69
--- NOTE | 2024-04-12 18:21 | PTCARENOTE ---
The patient has been oob and ambulating in the halls all shift. He has had no complaints of chest pain. Vital signs remain stable.
[2024-04-12 19:33] VITALS: BP 154/83
--- NOTE | 2024-04-12 20:37 | PTCARENOTE ---
Assumed care of pt from prev nsg shift. Pt AAOx3 w/no c/o CP or SOB. Pt's VS stable w/HR in the 50's-60's, BP slightly elevated at 154/83. Pt ambulating frequently in his rm & around the halls. Pt w/CT surgery book; this RN discussed plan of care
w/pt & emotional support provided. Pt w/call quevedo within reach & plan of care ongoing.
[2024-04-12 22:33] VITALS: BP 122/61
[2024-04-13 03:15] VITALS: BP 122/82
[2024-04-13 03:27] LABS: Hematocrit 40.9 % (39.0-52.0); Hemoglobin 14.1 g/dL (13.0-18.0); Mean Corp Hgb Conc. 34.5 g/dL (33.0-37.0); Mean Corpuscular Hgb 28.8 pg (27.0-31.0); Mean Corpuscular Volume 83.5 fL (80.0-94.0); Mean Platelet Volume 10.1 fL (7.4-10.4); Platelet Count 287 10^3/uL (130-400); Red Cell Dist. Width 14.6 % (11.5-14.5); White Blood Cell Count 7.2 10^3/uL (4.8-10.8)
[2024-04-13 04:51] VITALS: BMI 26.6
[2024-04-13 07:21] VITALS: BP 132/76
[2024-04-13] MEDS: AVAPRO 150 MG PO (07:46)
[2024-04-13] MEDS: LOW STRENGTH ASPIRIN 81 MG PO (07:46)
[2024-04-13] MEDS: TOPROL XL 25 MG PO (07:46)
[2024-04-13] MEDS: FLUSH (NSS) 1 FLUSH IV (07:47)
[2024-04-13] MEDS: VITAMIN C 1000 MG PO (07:47)
[2024-04-13] MEDS: THERAGRAN 1 TABLET PO (07:47)
--- NOTE | 2024-04-13 10:42 | W.PN.CD ---
Today's Communication / Plan
-
Continue current plan.
CAB Sunday
Impression / Plan
-
Impression/Plan: 78 y/o male with HTN/statin intolerance, asthma, prediabetes, JOSE ANGEL s/p carotid artery stent and CAD s/p prior PCI to the LCx (STEMI/cardiac arrest 2009), LAD (STEMI, 2006) and RCA (01/10/2021) admitted with chest pain and a high risk
stress test.
#CAD/Abnormal stress test
-Long history of CAD.
-S/P prior PCI to LAD for STEMI, 2006.
-S/P prior PCI to LCx for STEMI/cardiac arrest, 2009.
-S/P prior PCI to RCA for angina ([employer] Synergy 2.5 x 16 SANKET to dRCA, 2.25 x 16 SANKET to mRPL), 01/10/2021.
-Stress test 04/09/[address] depressions in inferolateral leads and [address] elevation in aVR. No stress imaging obtained. Patient left office AMA.
-Cardiac catheterization 04/10 revealed significant multivessel CAD; CT surgery consulted for CABG. - tentatively planned on 04/15/24
-Continue aspirin; Plavix being held for surgery.
-Statin-allergy.
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
-Previous EF was 55-60% on 10/31/2023.
-EF of 40-45% on echo with mild to moderate MR.
-Cardizem CD changed to Toprol-XL for GDMT.
-Continue ARB.
-Patient will need further GDMT as hospitalization progresses; will hold off for now, given need for CABG.
#HLD/Statin intolerance
-Chronic. Uncontrolled.
-Consider ezetimibe and PCSK9 inhibitors.
-Goal LDL < 55.
#JOSE ANGEL
-Chronic, stable.
-S/P carotid artery stent (Precise 9.0 x 30 self-expanding stent).
-Carotid duplex shows patent stent without restenosis.
-Previously on DAPT. He missed one dose of clopidogrel; holding Plavix as above.
#HTN
-Controlled.
-Continue Cardizem CD and irbesartan.
#DM
-New diagnosis; hemoglobin A1c 6.7%.
-Monitor blood glucose; SSI.
Subjective/Interval History:
No major events overnight. Patient denies any chest pain currently.
Physical Exam
Vital Signs/Labs
Vital Signs
Temp Pulse Resp BP Pulse Ox
97.8 F 64 16 132/76 98
04/13/24 07:20 04/13/24 07:21 04/13/24 07:20 04/13/24 07:21 04/13/24 07:20
04/12/24 04/13/24 04/14/24
06:59 06:59 06:59
Actual Weight 77 kg 77 kg
04/13/24 03:21
04/11/24 03:50
PT 13.9 Sec (11.4-14.6) 04/11/24 03:50
INR 1.09 04/11/24 03:50
APTT Cancelled 04/11/24 06:00
Triglycerides 119 mg/dl (10-149) 04/10/24 03:46
LDL Cholesterol, Calc 127 mg/dl 04/10/24 03:46
VLDL Cholesterol, Calc 23 mg/dl (0-30) 04/10/24 03:46
HDL Cholesterol 43 mg/dl 04/10/24 03:46
Physical Exam
Constitutional: No acute distress and Comfortable
Cardiovascular: Rhythm & rate is regular, Pedal edema is absent, JVD pressure is normal, Systolic murmur absent and Diastolic murmur absent
Respiratory: Respiratory effort normal, Lungs clear to auscul., Wheeze Absent, Crackles Absent and Rhonchi Absent
Neuro/Psych: AO x 3
Other: Cath Site (Normal radial pulse, normal cap refill)
Data Reviewed
-
Date of Service: April 13, 2024
EKG: Other (tele: Sinus rhythm with rare PVCs.)
[2024-04-13 12:35] VITALS: BP 134/80
[2024-04-13 15:49] VITALS: BP 128/70
--- NOTE | 2024-04-13 17:27 | PTCARENOTE ---
The patient has been frequently ambulating in the halls all shift. His vitals remain stable. NSR/SB noted on the monitor with HRs 50-70s. He has had no complaints of chest pain.
[2024-04-13 18:53] VITALS: BP 133/73
[2024-04-13 22:53] VITALS: BP 145/84
--- NOTE | 2024-04-14 00:48 | PTCARENOTE ---
Pt received start of shift, HR SR/SB. R radial cath site MARITA - soft, no hematoma. Reinforced importance of undergoing procedure. Pt states no CP, even w/ slight exertion around room. Informed to notify RN if any changes, call quevedo within reach.
[2024-04-14 03:15] VITALS: BP 134/84
[2024-04-14 03:50] VITALS: BMI 26.4
--- NOTE | 2024-04-14 07:15 | W.PN.CD ---
Today's Communication / Plan
-
CABG tomorrow
Impression / Plan
-
Impression/Plan: 78 y/o male with HTN/statin intolerance, asthma, prediabetes, JOSE ANGEL s/p carotid artery stent and CAD s/p prior PCI to the LCx (STEMI/cardiac arrest 2009), LAD (STEMI, 2006) and RCA (01/10/2021) admitted with chest pain and a high risk
stress test.
#CAD/Abnormal stress test
-Long history of CAD.
-S/P prior PCI to LAD for STEMI, 2006.
-S/P prior PCI to LCx for STEMI/cardiac arrest, 2009.
-S/P prior PCI to RCA for angina ([employer] Synergy 2.5 x 16 SANKET to dRCA, 2.25 x 16 SANKET to mRPL), 01/10/2021.
-Stress test 04/09/[address] depressions in inferolateral leads and [address] elevation in aVR. No stress imaging obtained. Patient left office AMA.
-Cardiac catheterization 04/10 revealed significant multivessel CAD; CT surgery consulted for CABG. - tentatively planned on 04/15/24
-Continue aspirin; Plavix being held for surgery.
-Statin-allergy.
- CABG planned for tomorrow
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
-Previous EF was 55-60% on 10/31/2023.
-EF of 40-45% on echo with mild to moderate MR.
-Cardizem CD changed to Toprol-XL for GDMT.
-Continue ARB.
-Patient will need further GDMT as hospitalization progresses; will hold off for now, given need for CABG.
#HLD/Statin intolerance
-Chronic. Uncontrolled.
- Statin intolerant
-Consider ezetimibe and PCSK9 inhibitors.
-Goal LDL < 55.
#JOSE ANGEL
-Chronic, stable.
-S/P carotid artery stent (Precise 9.0 x 30 self-expanding stent).
-Carotid duplex shows patent stent without restenosis.
-Previously on DAPT. He missed one dose of clopidogrel; holding Plavix as above.
- Will need only single antiplt therapy postCABG
#HTN
-Controlled.
-Continue Cardizem CD and irbesartan.
#DM
-New diagnosis; hemoglobin A1c 6.7%.
-Monitor blood glucose; SSI.
Subjective/Interval History:
Denies CP, SOB, palp
Physical Exam
Vital Signs/Labs
Vital Signs
Temp Pulse Resp BP Pulse Ox
97.6 F 77 16 134/84 98
04/14/24 03:15 04/14/24 03:15 04/14/24 03:15 04/14/24 03:15 04/14/24 03:15
04/13/24 04/14/24 04/15/24
06:59 06:59 06:59
Actual Weight 169 lb 12.095 oz 168 lb 10.458 oz
04/13/24 03:21
04/11/24 03:50
PT 13.9 Sec (11.4-14.6) 04/11/24 03:50
INR 1.09 04/11/24 03:50
APTT Cancelled 04/11/24 06:00
Triglycerides 119 mg/dl (10-149) 04/10/24 03:46
LDL Cholesterol, Calc 127 mg/dl 04/10/24 03:46
VLDL Cholesterol, Calc 23 mg/dl (0-30) 04/10/24 03:46
HDL Cholesterol 43 mg/dl 04/10/24 03:46
Physical Exam
Constitutional: No acute distress and Comfortable
EENT: Anicteric
Cardiovascular: Rhythm & rate is regular and Murmur/rub/gallop absent
Respiratory: Respiratory effort normal and Lungs clear to auscul.
GI: Soft and Distention absent
Neuro/Psych: AO x 3 and Motor deficits absent
Data Reviewed
-
Date of Service: April 14, 2024
[2024-04-14 07:33] VITALS: BP 132/79
[2024-04-14] MEDS: LOW STRENGTH ASPIRIN 81 MG PO (08:32)
[2024-04-14] MEDS: THERAGRAN 1 TABLET PO (08:32)
[2024-04-14] MEDS: AVAPRO 150 MG PO (08:32)
[2024-04-14] MEDS: TOPROL XL 25 MG PO (08:32)
[2024-04-14] MEDS: VITAMIN C 1000 MG PO (08:32)
--- NOTE | 2024-04-14 12:10 | CM ---
Reviewed chart. Met with Mr. [place] to review discharge plans. Prior to admission he resides with his spouse in a two story home with three steps to enter. He has a bedroom/full bathroom on each level. Prior to admission he was independent
with ambulation and adls. He does not have any DME in the home. He has a prescription plan and uses [facility]. Medical work-up in progress. The discharge plan is to return home with his spouse and a home visit by the Cardiothoracic
Transitional Care Nurse when medically stable.
We reviewed pre-op and post-op routines. Briefly we reviewed the shower instructions. We reviewed restrictions including sternal precaution and driving restrictions. We discussed a home visit by the Cardiothoracic Transitional Care Nurse. He is
agreeable to a home visit. The plan is to for CABG on Monday, April 15, 2024.
[2024-04-14 12:28] VITALS: BP 135/72
--- NOTE | 2024-04-14 14:00 | PTCARENOTE ---
Pt ambulating in room and halls, shanae well, denies chest pain.
[2024-04-14 16:23] VITALS: BP 132/76
[2024-04-14 18:48] VITALS: BP 149/87
--- NOTE | 2024-04-14 22:00 | PTCARENOTE ---
Patient clipped and showered with 4% CHG. IS reviewed. NSR on telemetry, denies chest pain
[2024-04-14 22:39] VITALS: BP 144/85
[2024-04-15] VITALS (20 sets, daily range): BP systolic 82–137; BP diastolic 54–90; BMI 26.3
--- NOTE | 2024-04-15 02:15 | PTCARENOTE ---
report received from IVU RN, pt transferred to room 1342. pt AAOx4. SR/SB on monitor. RA. skin CDI. PIV intact and patent. pt independent in room. pt resting between care w call quevedo in reach.
--- NOTE | 2024-04-15 02:18 | PTCARENOTE ---
Patient transferred to [facility].
[2024-04-15] MEDS: BACTROBAN 2% OINTMENT 1 APPLIC NASAL ×2 (05:26→20:21)
[2024-04-15] MEDS: MAGNESIUM OXIDE 500 MG PO (05:26)
[2024-04-15] MEDS: LOPRESSOR 25 MG PO (05:26)
[2024-04-15] MEDS: PROTONIX 40 MG PO (05:26)
--- NOTE | 2024-04-15 05:30 | PTCARENOTE ---
2nd shower w surgical soap completed. pre-op meds given. VSS. no changes in assessment. pt awaiting transfer to OR
--- NOTE | 2024-04-15 06:11 | W.CVOR.SURPR ---
CVOR Surgeon Immed Pre Op
-
I have examined this patient prior to performance of the scheduled procedure.
The patient's condition is unchanged from the time of the dictated/written History and
Physical and the patient is able to undergo the scheduled procedure.
CABG + PRESTON E
[2024-04-15 07:07] LABS: ACT+ - POC 104 Seconds (82-134)
[2024-04-15 07:08] LABS: B.E. - POC -4.6 mmol/L; Glucose - POC 119 mg/dl (65-99); HCO3 - POC 21 mmol/L (21-29); Hematocrit - POC 41 % PCV (42-52); Hemodilution- POC Yes; Hemoglobin Calculated - POC 14.1; Ionized Calcium - POC 1.26 mmol/L (1.12-1.27); O2 Saturation %Calculated-POC 99.9 5 (92-96); PCO2 - POC 42 mmHg (35-45); PO2 - POC 338 mmHg (80-100); POC Comment PRE; Potassium - POC 4.2 mmol/L (3.6-5.0); Sodium - POC 141 mmol/L (135-145); pH - POC 7.32 (7.35-7.45)
[2024-04-15 07:42] LABS: Urine Albumin 1+ (Neg - Trace); Urine Bilirubin Negative (Negative); Urine Character Clear (Clear); Urine Color Yellow; Urine Glucose Negative (Negative); Urine Ketone Negative (Negative); Urine Leukocyte Trace (Negative); Urine Nitrite Negative (Negative); Urine Occult Blood 1+ (Negative); Urine Specific Gravity 1.015 (<1.030); Urine Urobilinogen Negative (Neg - 1+)
[2024-04-15 07:56] LABS: Urine Squamous Cell >30 /LPF (Few)
[2024-04-15 07:58] LABS: Urine Bacteria Few (Negative); Urine White Cell 0-2 /HPF (0-5)
[2024-04-15 07:59] LABS: Urine Hyaline Cast 0-2 /LPF (0-2); Urine Mucus Few
--- NOTE | 2024-04-15 09:13 | CM ---
pt in OR today, cm to follow.
[2024-04-15 09:21] LABS: ACT+ - POC 592 Seconds (82-134)
[2024-04-15 09:46] LABS: Glucose - POC 140 mg/dl (65-99); HCO3 - POC 24 mmol/L (21-29); Hematocrit - POC 28 % PCV (42-52); Hemodilution- POC Yes; Hemoglobin Calculated - POC 9.5; Ionized Calcium - POC 1.05 mmol/L (1.12-1.27); O2 Saturation %Calculated-POC 99.9 5 (92-96); PCO2 - POC 39 mmHg (35-45); PO2 - POC 283 mmHg (80-100); POC Comment CPB; Potassium - POC 6.5 mmol/L (3.6-5.0); Sodium - POC 139 mmol/L (135-145)
[2024-04-15 09:53] LABS: ACT+ - POC 651 Seconds (82-134)
[2024-04-15 10:13] LABS: B.E. - POC -1.4 mmol/L; Glucose - POC 171 mg/dl (65-99); HCO3 - POC 24 mmol/L (21-29); Hematocrit - POC 32 % PCV (42-52); Hemodilution- POC Yes; Hemoglobin Calculated - POC 10.8; Ionized Calcium - POC 1.12 mmol/L (1.12-1.27); O2 Saturation %Calculated-POC 99.7 5 (92-96); PCO2 - POC 40 mmHg (35-45); PO2 - POC 213 mmHg (80-100); POC Comment CPB; Potassium - POC 6.3 mmol/L (3.6-5.0); Sodium - POC 138 mmol/L (135-145); pH - POC 7.38 (7.35-7.45)
[2024-04-15 10:21] LABS: ACT+ - POC 671 Seconds (82-134)
[2024-04-15 10:48] LABS: B.E. - POC 1.5 mmol/L; Glucose - POC 141 mg/dl (65-99); HCO3 - POC 26 mmol/L (21-29); Hematocrit - POC 31 % PCV (42-52); Hemodilution- POC Yes; Hemoglobin Calculated - POC 10.5; Ionized Calcium - POC 1.11 mmol/L (1.12-1.27); PCO2 - POC 40 mmHg (35-45); PO2 - POC 382 mmHg (80-100); POC Comment WARM; Potassium - POC 5.2 mmol/L (3.6-5.0); Sodium - POC 141 mmol/L (135-145); pH - POC 7.43 (7.35-7.45)
[2024-04-15 10:52] LABS: ACT+ - POC 609 Seconds (82-134)
[2024-04-15] MEDS: AVAPRO PO (10:59)
[2024-04-15] MEDS: THERAGRAN PO (11:00)
[2024-04-15] MEDS: TOPROL XL PO (11:00)
[2024-04-15] MEDS: VITAMIN C PO (11:00)
[2024-04-15] MEDS: LOW STRENGTH ASPIRIN PO (11:00)
[2024-04-15] MEDS: ANCEF 10 IV ×2 (11:03)
[2024-04-15 11:13] LABS: ACT+ - POC 123 Seconds (82-134)
[2024-04-15 11:17] LABS: Glucose - POC 115 mg/dl (65-99); HCO3 - POC 23 mmol/L (21-29); Hematocrit - POC 30 % PCV (42-52); Hemodilution- POC Yes; Hemoglobin Calculated - POC 10.3; Ionized Calcium - POC 1.45 mmol/L (1.12-1.27); O2 Saturation %Calculated-POC 99.4 5 (92-96); PCO2 - POC 42 mmHg (35-45); PO2 - POC 165 mmHg (80-100); POC Comment POST; Potassium - POC 4.5 mmol/L (3.6-5.0); Sodium - POC 143 mmol/L (135-145); pH - POC 7.34 (7.35-7.45)
--- NOTE | 2024-04-15 11:32 | CON.INTV ---
Addendum entered and electronically signed by Jak Gunn MD 04/15/24 16:51:
Regarding subcentimeter LLL pulmonary nodule, I will arrange for outpatient follow-up with me to discuss radiographic follow-up. I would get repeat CT chest in 3-6 months to assure nodule is stable.
Original Note:
Consultation
Consultation Request
Date/Time Consultation Requested: 04/15/20241124
Date/Time Consultation Performed: 04/15/2024 - 1129
Requesting Provider: CARLOS Bryan
Performing Provider: Jak Gunn MD
Reason for Consultation: s/p CABG x4 + PRESTON-exclusion
Medical History
-
Chief Complaint: Chest pain
History of Present Illness:
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
pharynx (biopsy negative per ENT) who presents with abnormal stress test with chest pain. Patient had an exercise nuclear stress test on 04/09/2024 of which EKG was positive for ischemia, and patient was advised to go to the ER immediately. Patient
refused EMS and left against medical advice and drove himself to the ER. In triage he was hypertensive to 189/115, saturating 97% on room air, afebrile to 98.3 �F, breathing at 18 breaths/min and pulse rate was 80 bpm. Labs showed a negative
troponin at <0.012. Initial CXR showed no acute cardiopulmonary process. Patient was admitted to the IVU under cardiology, and left heart catheterization was performed on 04/10 showing multivessel disease with subtotal chronic occlusion of the R
PDA and RPL with collaterals from the LAD, a 70% lesion in the lower branch of the major OM, 40-50% narrowing of the ostium of the LAD, progressive, 50% in-stent restenosis in the distal aspect of the mid LAD stent, and an occlusive 50% lesion
immediately proximal to the second diagonal with a tubular 40% lesion in the distal LAD. There were normal filling pressures with LVEDP of 11 mmHg. Cardiothoracic surgery was consulted and today patient underwent a CABG X 4+ left atrial appendage
exclusion after Plavix washout. There were no complications and the patient was transferred to the CVICU postoperatively for further care. Critical care services now consulted for additional management/recommendations.
When I saw the patient he was intubated on SIMV 14/500/40%/5, with peak pressure 21, breathing at 14 breaths/min and VTe of 470 mL. He is on insulin drip at 2.6 units/hr and sedated on Precedex at 0.6mcg/kg/hr. current vitals were: HR: 81, BP via
left radial A-line: 112/62, PAP: 24/13, CVP: 8, SpO2: 96%.
PMHx: Asthma, CAD s/p stent to LAD (remote) + SANKET to RCA and RPL-1 (01/2021), hypertension, hyperlipidemia, history of NC, gout, personal history of COVID-19 (2022), CKD, history of right upper extremity malignant melanoma, abdominal aortic
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
PSHx: Melanoma removal from right arm (May 2018, 2019), melanoma removal of back (08/2023), right ICA stent (November 2023), coronary stents (SANKET) placed to distal RCA + mid�RPL-1 (January 2021)
Past Medical History
Past Medical History: Other (Above as per HPI)
Past Surgical History: Other (Above as per HPI)
Social History
Tobacco: Smoker (Cigars)
Alcohol: None
Drug: None
Personal:
Living: With Family
Employment: Retired
Family History
Family History: Reviewed & Not Pertinent, CAD (Father) and Cancer (Mother)
Allergies / Home Medications
Allergies
Allergy/AdvReac Type Severity Reaction Status Date / Time
atorvastatin Allergy 'tore all Verified 04/09/24 16:20
my
ligaments'
[id number] Reductase Allergy myalgias Verified 04/09/24 14:33
Inhibitor and torn
ligaments
Home Medications
�Medication �Instructions �Recorded �Confirmed �Last Taken �Type
coenzyme Q10 100 mg capsule (Co 100 mg PO DAILY 01/10/21 04/09/24 04/08/24 History
Q-10)
turmeric root extract 500 mg 500 mg PO DAILY 01/10/21 04/09/24 04/08/24 History
capsule
clopidogrel 75 mg tablet 75 mg PO DAILY #90 tabs 01/11/21 04/09/24 04/08/24 Rx
nitroglycerin 0.4 mg sublingual 0.4 mg sublingual [id number] PRN 01/11/21 04/09/24 Unknown Rx
tablet chest pain #25 tabs
ascorbic acid (vitamin C) 1,000 mg 1,000 mg PO DAILY 11/23/23 04/09/24 04/08/24 History
tablet (Vitamin C)
colchicine 0.6 mg tablet 0.6 mg PO DAILYPRN PRN gout 11/23/23 04/09/24 6 Months Ago History
~05/23/23
fluticasone 100 mcg-salmeterol 50 1 inh inhalation BIDPRN PRN SOB 11/23/23 04/09/24 1 Week Ago History
mcg/dose blistr powdr for ~11/16/23
inhalation (Advair Diskus)
multivitamin 1 tab PO DAILY 11/23/23 04/09/24 04/08/24 History
omega 5-iet-rqt-fish oil 1,200 mg 1 cap PO DAILY ##0 11/23/23 04/09/24 04/08/24 History
(144 mg-216 mg) capsule (Fish Oil)
aspirin 325 mg tablet 325 mg PO DAILY 04/09/24 04/09/24 04/08/24 History
diltiazem HCl 180 mg 180 mg PO DAILY 04/09/24 04/09/24 04/08/24 History
capsule,extended release 24 hr
irbesartan 150 mg tablet 150 mg PO DAILY 04/09/24 04/09/24 04/08/24 History
Review of Systems
-
Unable to Obtain full review of systems at this time due to: Patient Intubation
Vitals / Labs / Diagnostic Testing
Vital Signs
Temp Pulse Resp BP Pulse Ox
98.0 F 57 17 135/75 97
04/15/24 05:09 04/15/24 05:07 04/15/24 05:09 04/15/24 05:07 04/15/24 05:09
Diagnostic Testing:
Physical Exam
-
HEENT: Normocephalic, Anicteric and Other (ETT in place)
Cardiovascular: S1/S2 and Peripheral Edema (Negative)
Respiratory: Wheeze (Negative), Rales (Negative), Rhonchi (Negative) and Other (Mechanical breath sounds heard bilaterally)
GI: Soft, Non Distended, Non Tender and Normal Bowel Sounds
Neurology: Tremors (negative) and Other (Sedated)
Skin: Warm and Dry
General: Comfortable and Chills (Negative)
Assessment
-
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
laryngeal pharynx (biopsy negative per ENT) who presents with abnormal stress test with chest pain. Patient had an exercise nuclear stress test on 04/09/2024 of which EKG was positive for ischemia, and patient was advised to go to the ER
immediately. Patient refused EMS and left against medical advice and drove himself to the ER. In triage he was hypertensive to 189/115, saturating 97% on room air, afebrile to 98.3 �F, breathing at 18 breaths/min and pulse rate was 80 bpm. Labs
showed a negative troponin at <0.012. Initial CXR showed no acute cardiopulmonary process. Patient was admitted to the IVU under cardiology, and left heart catheterization was performed on 04/10 showing multivessel disease with subtotal chronic
occlusion of the R PDA and RPL with collaterals from the LAD, a 70% lesion in the lower branch of the major OM, 40-50% narrowing of the ostium of the LAD, progressive, 50% in-stent restenosis in the distal aspect of the mid LAD stent, and an
occlusive 50% lesion immediately proximal to the second diagonal with a tubular 40% lesion in the distal LAD. There were normal filling pressures with LVEDP of 11 mmHg. Cardiothoracic surgery was consulted and today patient underwent a CABG X 4+
left atrial appendage exclusion after Plavix washout. There were no complications and the patient was transferred to the CVICU postoperatively for further care. Critical care services now consulted for additional management/recommendations.
Chronic conditions RECORDS MANAGEMENT ASSISTANT: Asthma, CAD s/p stent to LAD (remote) + SANKET to RCA and RPL-1 (01/2021), hypertension, hyperlipidemia, history of NC, gout, personal history of COVID-19 (2022), CKD, history of right upper extremity malignant melanoma,
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
Impression:
#Multivessel CAD with mid-LAD in-stent restenosis s/p CABG x 4 + PRESTON-exclusion - POD#0
#Acute anemia
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
#Hx of asthma on Advair 100mcg prn
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
#Carotid artery stenosis s/p R-ICA stent (Nov 2023)
#Personal Hx of COVID-19 (2022)
Plan:
Ventilator settings reviewed
FiO2 will be weaned to maintain SpO2 >90-94%
Minute ventilation will be adjusted
Arterial blood gases will be monitored
Spontaneous breathing trial will be attempted with hopeful extubation after anesthesia/sedation wear off
prn nebulized bronchodilators
Pulmonary artery catheter parameters will be followed
Pressors/antihypertensive/inotropes/diuretics will be provided as needed
Maintain MAP>65
Replete electrolytes with K>4, Mg>2
Monitor chest tube output
Monitor hemoglobin
Monitor platelet count and coags
Transfuse blood product if needed
CT surgery following chest tubes
Monitor blood sugar with goal BG 140-180
Insulin drip per protocol
Obtain prior ENT records from previous evaluation and reported biopsy of 3cm R-sided laryngeal pharynx mass biopsy - Bx is reportedly negative for malignancy. Unless mass has grown in size, no immediate indication for repeat Bx at this time.
Consider re-checking CT neck to re-image this pharyngeal mass.
Aspiration precautions
VAP prevention protocol
DVT prophylaxis
Early nutrition
Early mobilization
Critical care statement: A total of 46 minutes of critical care time was provided for this patient today. This includes management of ventilator, spontaneous breathing trial, arterial blood gases, pressors, of unstable vital signs, evaluation of the
patient at bedside, reviewing the patient's pertinent medical records including radiographs, microbiology, laboratory evaluations, and discussion with primary team and critical care nursing.
Data:
CXR 04-15-2024: Postop cardiothoracic surgery; Mild linear atelectasis within the lower lungs. No evidence for significant pneumothorax.
CT Chest/Abd/Pelvis w/o cotnrast 04-11-2024:
1. No acute findings within the chest, abdomen, or pelvis.
2. Normal caliber thoracic and abdominal aorta. Heavily calcified thoracic arch as well as abdominal aorta. Tortuous, moderately calcified iliac arteries.
3. Densely calcified coronary arteries.
4. 3 to 4 mm nodule within the left lower lobe. Alternatively, this could represent a focus of scarring. A follow-up CT is recommended in 6-12 months.
CTA Neck w/wo IV contrast 09-26-2023:
NECK CTA:
There is significant vascular calcification of vessels at the aortic arch and bilaterally in the common carotid arteries. There is greater than 80% stenosis of the right internal carotid artery origin and approximately 60% narrowing of the origin of
the left ICA.
There is a significant amount of noncalcified plaque in the mid left common carotid artery with 50% narrowing.
There is calcification at the origin of the vertebral arteries bilaterally. There is minimal noncalcified and calcified plaque along the course of the left vertebral artery with less than 50% narrowing.
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 Squamous cell carcinoma of the larynx to be excluded.
There are mildly prominent but normal sized lymph nodes in the right side of the neck. There is no adenopathy.
Moderate degenerative disk and joint disease in the cervical spine. Moderate central canal stenosis at C6-7.
TTE 04-10-2024:
Mildly reduced left ventricular systolic function. LV ejection fraction is 40-
45% by Fleming's method of discs.
Stage I diastolic dysfunction suggestive of abnormal relaxation.
Mild to moderate mitral regurgitation.
Compared to previous echo 10/31/2023, the ejection fraction has declined from
55-60% to 40-45%. Prior ascending aortic measurement was 4.0cm and today is
3.8cm.
--- NOTE | 2024-04-15 11:54 | W.PN.CT.SURG ---
CT Surgery Operative Note
-
CARDIAC SURGERY OPERATIVE REPORT
Preoperative Diagnosis: Multivessel Coronary Artery Disease with proximal LAD with in-stent restenosis
Postoperative Diagnosis: Same
Procedure(s) Performed:
1. Standard sternotomy with aortic and right atrial cannulation
2. Coronary artery bypass grafting x 4 (In situ HO to LAD, Ao to RSVG to high diagonal sequential to lower branch of the OM, Ao to RSVG to RP LB)
3. Left atrial appendage exclusion [35 mm clip]
4. Endoscopic vein harvesting of left lower extremity
5. Transesophageal echocardiography
6. Placement of temporary ventricular pacing wire
Date of Surgery: 04/15/2024
Comorbidities:
1. History of STEMI's with multiple PCI's
2. 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
3. Hypertension
4. Hyperlipidemia
5. Asthma
6. Lqb-noliaxo-xwyefuvfl diabetes mellitus type 2
7. 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
8. Melanoma
9. Gout
10. Ischemic cardiomyopathy with LVEF of 40%
Attending Surgeon: José Manuel England MD, MS
Assistants: José Manuel Resendiz PA-C (present and necessary to dental chairside assistant, endoscopic vein harvest, retraction, suction, exposure, suture management, and wound closure under my direction)
Anesthesiology: Tim Arambula MD and Cristina Pringle CRNA
Scrub and Circulating RNs: Meek Pratt RN, Chris Bustos RN
Marketing Content Coordinator: Mana Mcmullen CCP
Anesthesia: GETA
EBL: per perfusion records
Products: None
CPB Time: 95 minutes
Aortic Cross Clamp Time: 81 minutes
Indication(s) for Procedures: This is an 78-year-old male with a history of multiple STEMI's in the past requiring PCI. He underwent a stress test after developing upper back pain radiating to his jaw and was found to have abnormalities. From a
symptomatology standpoint he had exertional angina. Due to the complexity of his lesion set as well as proximal LAD disease, multidisciplinary team discussion took place on the best strategy for revascularization. Ultimately surgery was the best
option for the patient. His risks were explained in detail he opted to move forward.
Conduit(s) Quality:
HO -excellent/somewhat sclerotic against the chest wall but overall excellent flow
RSVG -good/uniform in size with minimal varicosities some sclerosis
Target(s) Quality:
RPLB -marginal/this was a FONDANT PUFF MAKER lesion with left to right collateralization. There is a small target accommodating a 1 to 1.25 mm probe. The vein graft was anastomosed and test dosing of antegrade revealed approximately 10 to 20 cc a minute of flow
at a pressure of 80 to 90 mmHg.
OM -excellent/very large sized target, intramyocardial, but fit a 2 mm probe easily. Test dosing antegrade revealed a flow of approximately 60 to 70 cc a minute at a pressure of 80 mmHg.
High diagonal -excellent/good sized target easily accommodating a 1.5 mm probe. This was form as a sequential graft to the OM, test dosing of antegrade while using a bulldog in the distal portion the vein revealed approximately 50 to 60 cc a minute
of flow at a pressure of 80 mmHg.
LAD -excellent/the HO was able to accommodate a very distal graft beyond the second diagonal branch. There was excellent visual flow in the LAD territory along with backfilling of the diagonal vessel upon removal of the bulldog clamp.
Findings: His left ventricular ejection fraction preoperatively was approximately 40% with global hypokinesis and no specific regional wall motion abnormalities. Following surgery his EF did improve to approximately 50% with no new regional wall
motion abnormalities. He had ischemic mitral valve insufficiency was approximately mild to moderate preoperatively. Following surgery with improvement in EF, his mitral valve insufficiency was mild at most. The HO was harvested in a skeletonized
fashion. Following bypass grafting, test dose cardioplegia was given down each distal and confirmed patency and hemostasis. Cardiac index was 2.3 without any inotropic support. He regained sinus rhythm and did not require any pacing. No products
were given. His left atrial appendage was verified to be free of any thrombus or debris preoperatively and found to be totally occluded flush to the base with no flow on color Doppler.
Description of Procedure: The patient was taken to the operating room. Their identity and procedure to be performed were verified and they were positioned supine on the operating table. Induction via general anesthesia with endotracheal intubation
was performed and central venous access and arterial monitoring were inserted. A preoperative transesophageal echocardiogram was performed to assess cardiac function and valvular function. The patient was then prepped and draped from chin to feet in
a sterile fashion. A preoperative time-out was performed with all members of the team present. A midline chest incision was performed along with median sternotomy. Simultaneous endoscopic access of the left lower extremity for saphenous vein harvest
was obtained along with administration of an initial 5,000 units of IV heparin. A RulTract sternal retractor was positioned to exposure the left internal mammary bed. The mammary was harvested and found to have good flow. A bulldog clamp was applied
to the distal end of the mammary after dividing it. It was wrapped in a papaverine soaked RayTec and replaced back into the left hemithorax. The RulTract was exchanged for a median sternal retractor. The innominate vein was isolated. Full
heparinization was given (a total of 45,000 units). We created a pericardial well. The aortic cannulation site was chosen where it was soft, pliable, and free of calcium. Cannulation was performed with an arterial cannula in the ascending aorta and
a triple-stage venous cannula through the right atrial appendage. The arterial cannula line had an appropriate bounce and correlating pressures with test dosing. Next, a root vent/antegrade cannula was inserted into the ascending aorta. The ACT was
confirmed to be over 400 and retrograde autologous priming was performed before commencing cardiopulmonary bypass. The pulmonary artery was away from the aorta to facilitate a clamp site. The aortic cross-clamp was placed after decreasing
the flow on the bypass and mean arterial pressure. A total of 1.2L initial dose of antegrade Del-Nido cardioplegia solution was given and planned for re-dosing every 75 minutes as necessary. There was rapid electro-mechanical arrest of the heart at
300 cc of cardioplegia. The left ventricle was observed for distention on echocardiogram and manual palpation. Cold slush was placed into a sponge and topically on the RV while we systemically cooled to 34 degrees centigrade. Once the heart was
arrested, it was medialized and the left atrial appendage identified. It was sized to a 35 mm clip which was applied flush the base.
I positioned the heart to expose the distal right coronary at the posterior lateral branch on the right. A upper mattaponi blade was used to expose the coronary and perform the arteriotomy. Coronary Giron scissors were used to enlarge the incision. The
saphenous vein was trimmed and beveled to an appropriate size. The distal anastomosis was performed using 7-0 prolene in an end-to-side fashion. Antegrade cardioplegia was administered into the graft. Appropriate hemostasis and flow were confirmed.
The graft was measured for length to the aorta and cut. A suitable site on the obtuse marginal lower branch was chosen. It was found to be quite intramyocardial, careful dissection along the myocardium was performed. We dissected and prepared the
distal target in a similar fashion. An end-to-side anastomosis was created with a 7-0 prolene. Antegrade cardioplegia was administered into the graft. Appropriate hemostasis and flow were confirmed. The graft was measured for length to the aorta and
cut. Next the high diagonal branch was identified and prepared in a similar fashion. A small venotomy was created on the underbelly of the vein graft leading to the OM. Nhcx-ci-zroz anastomosis was created with 7-0 Prolene in a perpendicular
fashion. Test dosing of antegrade with the distal margin clamped off revealed excellent flow down the graft and hemostasis. A suitable target on the distal left anterior descending was identified past the second diagonal vessel. We dissected and
prepared the distal target in a similar fashion. We retrieved the HO from the chest and created a pericardial opening while being cognizant of the phrenic nerve to facilitate the course of the mammary. The distal end of the mammary was prepped and
beveled to size. We verified orientation and length of the CARLOS and found brisk flow. An end-to-side anastomosis was created with a 7-0 prolene. We temporarily released the bulldog clamp on the mammary to inspect flow. Perfusion to the LAD territory
was visualized and hemostasis was confirmed. The bull clamp was replaced on the mammary. The heart was filled and the root was distended with antegrade cardioplegia to make final assessment of graft length and orientation. We created 2 aortotomies
using a #11 blade then a 4.0mm aortic punch. The length on the vein leading to the RPL B branch was a little bit short and so a composite graft was performed with an end and anastomosis of the remaining saphenous vein graft. This was performed with
7-0 Prolene in a running fashion. Test dosing antegrade through this graft to graft anastomosis revealed good flow and hemostasis. The proximal anastomoses were created in an end-to-side fashion using 6-0 prolene. At the the same time, we
re-warmed to 36.5 degrees centigrade. The bulldog clamp was removed from the mammary. Temporary bipolar ventricular pacing wires were placed on the base of the right ventricle. The patient was placed in a Trendelenburg position and flows on bypass
were lowered. The aortic cross clamp was removed and flows were slowly brought back up. A 30-gauge needle was used to de-air the vein grafts. All bypass grafts were inspected and were free from kinking or twisting. The distal and proximal
anastomoses appeared hemostatic. Once transesophageal echocardiography appeared satisfactory for de-airing, the flows were temporarily lowered for root vent removal. After verifying acceptable parameters, we initiated weaning from cardiopulmonary
bypass. Once we were off cardiopulmonary bypass, the venous cannula was clamped and removed. A test dose of protamine was administered and the patient was monitored for any adverse reaction before resuming protamine. Once half of the protamine dose
was delivered, pump suckers were turned off and the systolic blood pressure was lowered for aortic decannulation. The aortic cannula was removed and pursestrings were tied down. All cannulation sites were oversewn with a 4-0 prolene. The mammary bed
was inspected and hemostasis was confirmed. Once the mediastinum was hemostatic, 19Fr Perry drain was placed in the left and right pleural cavities and two 24Fr Perry drains were placed within the pericardium. The sternum was approximated with 4 #7
single and 3 #8 double stainless steel wires. Fascia was approximated with #1 vicryl suture. The subcutaneous, dermis and epidermis were closed in layers in a running fashion. The skin wound was cleansed and dressed.
All instrument, sponge, and needle counts were confirmed to be correct x 2 at the end of the operation. The patient was transferred to the cardiac intensive care unit in critical but stable condition.
I, Dr. José Manuel England, was present, scrubbed for, and performed all critical elements of this procedure.
José Manuel England MD, MS
Cardiothoracic Surgeon
[facility]
This operative dictation was created using the [facility] dictation system. Please excuse any grammatical, typographical, or 'sound alike' errors
[2024-04-15 12:09] LABS: Glucose - Point of Care 122 mg/dl (70-99)
--- NOTE | 2024-04-15 12:27 | W.PN.UPDATE ---
Update Note
Progress Note Update
IV fluids: 2200
Crystalloid:� 1100
U.O.:� 450
UF:� 1200
Blood:� None
Wires:� V- Wires
Inotropes:� None
Pressors:� Levophed
Sedatives:� Precedex
�
NEURO: sedated on precedex, pupils +1mm B/L
RESP: #8OT @22cm> 14/500/60/5 . Lungs clear B/L. 2 mediastinal (0cc on arrival) and R/L pleural (5cc on arrival) chest tubes to -20cm suction. Sanguineous drainage
CV: RRR +S1, S2, no S3, no�rub, no murmur. Dermabond to median sternotomy. RIJ w/[place] locked @ 48cm. PA 27/17; CVP 10;
ABD: round, soft, no BS
EXT: no edema, +2/4 DP pulses B/L, no femoral bruit, LLE AILYN wrap intact; L radial A-line intact
: Landry with clear yellow urine
�
A/P: POD #0 s/p Coronary artery bypass grafting x 4 (In situ HO to LAD, Ao to RSVG to high diagonal sequential to lower branch of the OM, Ao to RSVG to RP LB)
LAYNE: EF 50%�
- F/u post-operative labs and ABG
- Check CXR
- Monitor UOP and CT output
- Tonsillar mass found upon intubation; ENT consulted and will keep patient intubated until seen
- Check post-op EKG
- start ASA 6hrs post-op; will start plavix tomorrow
- Cards consulted
�
# acute surgical blood loss anemia-expected
- trend CBC
- IV Iron ordered�
�
# T2DM (A1C 6.7)
- insulin infusion x 48h
�
# Hyperlipidemia
#Hx of statin intolerance
- Will resume CoQ10 when appropriate
[2024-04-15 12:28] LABS: Hematocrit 32.6 % (39.0-52.0); Platelet Count 206 10^3/uL (130-400)
[2024-04-15 12:32] LABS: B.E. -3.7 mmol/L; HCO3 22.1 mmol/L (21-28); O2 Saturation % 99.8 % (94-98); PCO2 42 mmHg (35-48); PO2 175 mmHg (83-108); Potassium 4.5 mMOL/L (3.5-5.1); Sodium 138 mMOL/L (136-145); pH 7.33 (7.35-7.45)
[2024-04-15 12:36] LABS: Mixed Venous O2 Saturation 78.7 %
[2024-04-15 12:42] LABS: APTT 31.9 Sec (23.4-35.0); INR 1.49; PT 17.9 Sec (11.4-14.6)
[2024-04-15] MEDS: NEURONTIN PO ×2 (12:43→15:11)
[2024-04-15] MEDS: NOVOLOG FLEXPEN SC ×3 (12:43→15:11)
[2024-04-15 12:49] LABS: Blood Urea Nitrogen 23 mg/dl (9-20); Estimated Creatinine Clearance 46 ml/min; Glucose 119 mg/dl (70-99); Magnesium 2.6 mg/dl (1.6-2.3)
[2024-04-15] MEDS: CARDENE 200 IV (12:49)
[2024-04-15] MEDS: NSS 500 IV (12:50)
--- NOTE | 2024-04-15 13:00 | PTCARENOTE ---
Pt arrived from CVOR to CVICU into room 2262 at 1200. Pt remains intubated and sedated. Pt remains SR with HR 80's. BP 129/70 MAP 90. PA 26/16, CVP 9, CO 3.48, CI 1.85, SVR 1861. Virgen hugger in place, temp 95.5 on arrival. Pulse oximetry 97%.
Intubated with #8 ET tube at 21cm right lip. Vent settings SIMV, FiO2 60%, TV 500, rate 14, PEEP 5, Pressure support 5. Chest tubes x4 (mediastinal x2, left and right pleural) no sign of air leak or crepitus, drainage serosanguineous. Bowel sounds
hypoactive. Landry catheter in place draining clear yellow urine. Landry care completed. Midsternal incision approximated with surgical adhesive in place. Left leg incision with chapin wrap overlay in place. Left groin puncture ecchymotic, MARITA with
surgical adhesive. Left radial A line in place. Right IJ [place]-Jimmy catheter in place at 47cm. Pt remains on insulin gtt per glycemic protocol. Remains on Precedex at 0.6 mcg/kg/hr. Post-op EKG completed, X-ray obtained, labs collected.
--- NOTE | 2024-04-15 13:05 | W.PN.CD ---
Addendum entered and electronically signed by Damien Herrmann MD 04/15/24 15:05:
Patient seen and examined in collaboration with OB/GYN; agree with below.
-Patient underwent successful CABG x 4 today.
-Patient remains intubated.
-Continue supportive care and routine postoperative management as directed by CT Surgery.
-night monitor; will follow.
Original Note:
Today's Communication / Plan
-
Follow telemetry
Impression / Plan
-
Impression/Plan: 78 y/o male with HTN/statin intolerance, asthma, prediabetes, JOSE ANGEL s/p carotid artery stent and CAD s/p prior PCI to the LCx (STEMI/cardiac arrest 2009), LAD (STEMI, 2006) and RCA (01/10/2021) admitted with chest pain and a high risk
stress test.
#CAD/Abnormal stress test S/P CABG 04/15/[address] England (in situ HO�LAD, ao�RSVG to high diagonal sequential to lower branch of the OM, AO to RSVG to RPLB & 35 mm PRESTON clip)
-Preop LVEF 40% without specific RWMA, post LVEF 50% with no new regional wall motion abnormalities
-EKG with sinus arrhythmia, rate 69
-Long history of CAD (PCI to LAD for STEMI 2006, PCI to LCx for STEMI/cardiac arrest 2009, PCI to RCA for angina 01/10/2021)
-Stress test 04/09/[address] depressions in inferolateral leads and [address] elevation in aVR. No stress imaging obtained.
-Statin-allergy.
Tonsillar mass
-Seen upon intubation, ENT to evaluate
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
-Previous EF was 55-60% on 10/31/2023.
-EF of 40-45% on echo with mild to moderate MR.
-Cardizem CD changed to Toprol-XL for GDMT.
-Resume ARB when able
-Patient will need further GDMT as hospitalization progresses, consider SGLT2
#HLD/Statin intolerance
-Chronic. Uncontrolled. LDL 127.
-Statin intolerant, consider ezetimibe and PCSK9 inhibitors.
-Goal LDL < 55.
#JOSE ANGEL
-Chronic, stable.
-S/P carotid artery stent (Precise 9.0 x 30 self-expanding stent).
-Carotid duplex shows patent stent without restenosis.
-Previously on DAPT. He missed one dose of clopidogrel; pre-op Plavix hold
-Will need only single antiplt therapy post CABG
#HTN
-Controlled.
-Resume medical therapy postoperatively
#DM
-New diagnosis; hemoglobin A1c 6.7%.
-Monitor blood glucose; SSI.
Subjective/Interval History:
Intubated and sedated on mechanical ventilation.
OR report reviewed.
Physical Exam
Vital Signs/Labs
Vital Signs
Temp Pulse Resp BP Pulse Ox
95.5 F L 73 14 137/86 97
04/15/24 12:00 04/15/24 12:15 04/15/24 12:15 04/15/24 05:08 04/15/24 12:15
04/14/24 04/15/24 04/16/24
06:59 06:59 06:59
Actual Weight 76.5 kg 76.1 kg
04/15/24 12:14
PT 17.9 Sec (11.4-14.6) H 04/15/24 12:14
INR 1.49 04/15/24 12:14
APTT 31.9 Sec (23.4-35.0) 04/15/24 12:14
Magnesium 2.6 mg/dl (1.6-2.3) H 04/15/24 12:14
Triglycerides 119 mg/dl (10-149) 04/10/24 03:46
LDL Cholesterol, Calc 127 mg/dl 04/10/24 03:46
VLDL Cholesterol, Calc 23 mg/dl (0-30) 04/10/24 03:46
HDL Cholesterol 43 mg/dl 04/10/24 03:46
Physical Exam
Constitutional: No acute distress and Comfortable
EENT: Anicteric and Moist mucous membranes
Cardiovascular: Rhythm & rate is regular, Pedal edema is absent and S1S2 is normal
Respiratory: Lungs clear to auscul.
GI: Soft, Distention absent and Flat
Neuro/Psych: Other (sedated)
Other: Skin (warm and dry)
Data Reviewed
-
Date of Service: April 15, 2024
Labs: Labs Reviewed by me
Old Records: Reviewed
[2024-04-15 13:10] LABS: Glucose - Point of Care 131 mg/dl (70-99)
[2024-04-15 14:17] LABS: Glucose - Point of Care 125 mg/dl (70-99)
[2024-04-15] MEDS: TYLENOL PO (14:33)
[2024-04-15] MEDS: LR 250 IV ×2 (14:38→20:30)
[2024-04-15 15:06] LABS: Glucose - Point of Care 97 mg/dl (70-99)
[2024-04-15] MEDS: PACERONE PO (15:11)
[2024-04-15 16:05] LABS: Glucose - Point of Care 122 mg/dl (70-99)
[2024-04-15 16:10] LABS: B.E. -3.6 mmol/L; HCO3 21.5 mmol/L (21-28); Hematocrit 34.2 % (39.0-52.0); Hemoglobin 11.7 g/dL (13.0-18.0); O2 Saturation % 99.6 % (94-98); PCO2 38 mmHg (35-48); PO2 151 mmHg (83-108); Platelet Count 238 10^3/uL (130-400); pH 7.36 (7.35-7.45)
[2024-04-15] MEDS: ANCEF 5 IV (17:29)
--- NOTE | 2024-04-15 17:42 | PTCARENOTE ---
Pt waking up appropriately, Precedex titrating down. CPAP trial initiated. ABG collected and reviewed. Extubated at 1615. Pt briefly having labile BP on and off Cardene/Levo. Now on Levo at 2mcg/min. BP 100/63 MAP 76. PA 26/14, CVP 12, CO 4.03, CI
2.15.
[2024-04-15 18:16] LABS: Glucose - Point of Care 106 mg/dl (70-99)
[2024-04-15] MEDS: LOW STRENGTH ASPIRIN 81 MG PO (18:19)
[2024-04-15 20:28] LABS: Glucose - Point of Care 111 mg/dl (70-99)
--- NOTE | 2024-04-15 20:30 | PTCARENOTE ---
Patient received resting in bed without difficulty. Patient A+A+Ox3. No neurological deficits noted. No c/o headache, dizziness or lightheadedness. No s/s of respiratory distress. No c/o SOB. O2 at 4L via NC. SaO2 96%. Four chest tubes -
Mediastinal x2 and Right and Left Pleural - Intact and patent - 5-10 ml red drainage - No air leak, tidaling or crepitus. Chest tube dressing intact. Sinus Rhythm. Heart rate 90's. Levophed gtt titration for MAP >65. Epicardial Temporary
Pacemaker - VVI Rate 50, Output 16, Sensitivity 4.0. No c/o chest pain, pressure or discomfort. Hypoactive bowel sounds. No BM. No c/o nausea. No vomiting. Tolerating ice chips and sips of water. Landry catheter - Temperature sensing - Light
daisy, yellow urine - Outputs as documented. Right [place]. Cord[place] Jimmy catheter. Left radial arterial line. A-Line, PAP, CVP to pressure bag/saline flush - Flush without difficulty - Zeroed and calibrated - Waveform within normal limits. C.O.
3.33 C.I. 1.77 CVP 9 PAP 22/12 (16) SVR 1417. Patient with sternal incision - Intact - Surgical adhesive - Open to air. Right knee incision - Surgical adhesive. Left groin - Ecchymotic. Left knee - incisions intact - Coban Wilfredo Wrap intact.
Positive pulses. Patient with no c/o back or flank pain. Afebrile. Insulin gtt - Glycemic Protocol. Assessment as documented.
[2024-04-15] MEDS: ROXICODONE 5 MG PO (20:33)
[2024-04-15] MEDS: SENOKOT-S 1 TABLET PO (20:33)
[2024-04-15] MEDS: DILAUDID 0.25 MG IV (21:25)
[2024-04-15] MEDS: TYLENOL 1000 MG PO (22:31)
[2024-04-15] MEDS: NEURONTIN 100 MG PO (22:31)
[2024-04-15 22:32] LABS: Mixed Venous O2 Saturation 68.3 %
[2024-04-15] MEDS: PACERONE 200 MG PO (22:32)
[2024-04-15 22:39] LABS: Glucose - Point of Care 93 mg/dl (70-99)
--- NOTE | 2024-04-15 23:00 | PTCARENOTE ---
C.O. 3.61 C.I. 1.92 Patient given Roxicodone 5mg PO and IV Dilaudid 0.25 mg for pain management. Patient given LR 250 ml IVF bolus. Levophed gtt off. Patient dozing intermittently. No further changes from previous assessment.
[2024-04-16] VITALS (27 sets, daily range): BP systolic 95–149; BP diastolic 63–87; BMI 26.8
[2024-04-16 00:18] LABS: Glucose - Point of Care 112 mg/dl (70-99)
--- NOTE | 2024-04-16 01:00 | PTCARENOTE ---
Patient sleeping intermittently. Patient A+A+Ox3 during periods of care. C.O. 4.15 C.I. 2.21 Assessment as documented.
[2024-04-16 02:16] LABS: Glucose - Point of Care 99 mg/dl (70-99)
[2024-04-16] MEDS: ANCEF 5 IV ×2 (02:34→10:03)
[2024-04-16 04:05] LABS: Glucose - Point of Care 98 mg/dl (70-99)
[2024-04-16 04:18] LABS: Hematocrit 32.4 % (39.0-52.0); Hemoglobin 11.1 g/dL (13.0-18.0); Mean Corp Hgb Conc. 34.3 g/dL (33.0-37.0); Mean Corpuscular Volume 84.6 fL (80.0-94.0); Mean Platelet Volume 10.3 fL (7.4-10.4); Platelet Count 216 10^3/uL (130-400); Red Blood Cell Count 3.83 10^6/uL (4.70-6.10); Red Cell Dist. Width 14.7 % (11.5-14.5); White Blood Cell Count 15.4 10^3/uL (4.8-10.8)
[2024-04-16 04:22] LABS: Mixed Venous O2 Saturation 67.5 %
[2024-04-16] MEDS: DILAUDID 0.25 MG IV ×2 (04:24→07:48)
[2024-04-16 04:40] LABS: Blood Urea Nitrogen 27 mg/dl (9-20); Calcium 9.2 mg/dl (8.4-10.2); Carbon Dioxide 22 mmol/L (22-30); Chloride 112 mmol/L (98-107); Estimated Creatinine Clearance 42 ml/min; Glucose 96 mg/dl (70-99); Magnesium 2.2 mg/dl (1.6-2.3); Potassium 4.6 mmol/L (3.5-5.1); Sodium 142 mmol/L (135-145); eGFR 55.53
--- NOTE | 2024-04-16 05:25 | W.PN.CT ---
Today's Communication / Plan
-
-pod #1
-no issues overnight
-CI 2.16, CO 4.07; mVO2 67.5 at 10 pm. Drips: insulin. Levo is off @ 11 pm
-CT output: 2 meds 35/60, 2 pleur 50/135 in 12/24 hrs
-deline
-d/c Landry
-continue insulin
-current meds (ASA, Plavix, Lopressor, Amio, Protonix, iv iron, Neurontin, Lidocaine patch). Intolerant of statins
-encourage IS, OOB
Assessment / Plan
-
- MV- CAD with proximal LAD in-stent restenosis- s/p CABG x4 (In situ HO to LAD, Ao to RSVG to high diagonal sequential to lower branch of the OM, Ao to RSVG to RP LB); LAAE (35 mm clip) on 04/15/[address] England, pod #1
- Intraop LAYNE: LVEF preop was approximately 40% with global hypokinesis and no specific regional wma. Following surgery, his EF did improve to approximately 50% with no new regional wma. He had ischemic mitral valve insufficiency was approximately
mild to moderate preoperatively. Following surgery with improvement in EF, his mitral valve insufficiency was mild at most. His PRESTON was free of any thrombus or debris preoperatively and found to be totally occluded flush to the base with no flow on
color Doppler.
- History of STEMI's with multiple PCI's
- Hypertension
- Hyperlipidemia
- CKD 3a (Cr 1.1-1.3 preop)
- Asthma
- Afu-ltmfxaj-rklghsing diabetes mellitus type 2 (HgA1c 6.7)
- S/P R carotid artery stent (Precise 9.0 x 30 self-expanding stent)-Carotid duplex shows patent stent without restenosis.
- Mild to moderate mitral valve insufficiency, secondary to ischemic cardiomyopathy [functional type IIIb]
- Melanoma
- Gout
- Ischemic cardiomyopathy with LVEF of 40%
- Tobacco use, cigars
- Large unilateral tonsil noted on intubation - pt follows with ENT outpatient for possible removal in the future
- Intolerance of statins with myalgia and hx torn ligaments
- Acute postop blood loss anemia - stable, no transfusion
- Acute postop atelectasis
- Acute postop hypovolemia with subsequent hypervolemia
Discussed patient care with: Nursing and Care Team
Subjective
Procedure
s/p CABG x4 (In situ HO to LAD, Ao to RSVG to high diagonal sequential to lower branch of the OM, Ao to RSVG to RP LB); LAAE (35 mm clip) on 04/15/[address] England
-
Date of Service: April 16, 2024
Objective Data
-
PT 17.9 Sec (11.4-14.6) H 04/15/24 12:14
INR 1.49 04/15/24 12:14
APTT 31.9 Sec (23.4-35.0) 04/15/24 12:14
Vital Signs
Vital Signs
Temp Pulse Resp BP Pulse Ox
97.7 F 92 20 95/67 97
04/16/24 00:30 04/16/24 00:45 04/16/24 00:45 04/16/24 00:30 04/16/24 00:45
CT Intake/Output/Weight
04/15/24 04/15/24 04/16/24
06:59 18:59 06:59
Intake Total 603.5 / 1083.6 480.1 / 1083.6
Output Total 1200 / 2300 1270 / 1685 415 / 1685
Balance -1200 / -2300 -666.5 / -601.4 65.1 / -601.4
SaO2: 97
Physical Exam
-
General: Awake and AOx3
Cardiovascular: Regular rate & rhythm, No Murmurs and Rub
Respiratory: Decreased Breath Sounds
Sternum: Stable
Incision: Clean, Dry and Intact
Extremities: No Edema (2+ DPs b/l)
Abdomen: soft, nontender, nondistended, + bowel sounds
Data Reviewed
-
Lab Results: Results Reviewed
Medications: Active Meds Reviewed
Chest X-Ray: Report Reviewed and Image Reviewed
ECG: Report Reviewed and Image Reviewed
[2024-04-16 06:26] LABS: Glucose - Point of Care 93 mg/dl (70-99)
[2024-04-16] MEDS: TYLENOL 1000 MG PO ×3 (06:27→22:56)
--- NOTE | 2024-04-16 06:30 | PTCARENOTE ---
Patient A+A+Ox3. No neurological deficits noted. AM lab work collected and sent. EKG completed. Portable CXR completed. Patient de-lined. Landry catheter removed without difficulty. Patient due to void at 1230. Patient given CHG bath and
linens changed. OOB to chair. Standing scale weight 77.6kg. Assessment/Interventions as documented.
--- NOTE | 2024-04-16 07:28 | W.PN.ANS.POP ---
Anesthesia Post Operative
- Anesthesia Post Op Note
Vital Signs Stable-See Nursing Note: Yes
Airway Patent: Yes
Adequate Pain Control: Yes
Change in Mental Status: No
Current Postoperative Nausea & Vomiting: No
Anesthesia Complications: No
General Anesthetic Recall: No
Unplanned Admission: No
Post Op Hydration Adequate: Yes
- -
Pt awake and alert- OOB to chair with no anesthesia related c/o at time of post op visit...VSS.
[2024-04-16] MEDS: PLAVIX 75 MG PO (07:47)
[2024-04-16] MEDS: LOPRESSOR 12.5 MG PO (07:47)
[2024-04-16] MEDS: MAGNESIUM OXIDE 500 MG PO ×2 (07:47→19:26)
[2024-04-16] MEDS: PACERONE 200 MG PO ×3 (07:47→22:57)
[2024-04-16] MEDS: PROTONIX 40 MG PO (07:47)
[2024-04-16] MEDS: LOW STRENGTH ASPIRIN 81 MG PO (07:47)
[2024-04-16] MEDS: VITAMIN C 1000 MG PO (07:47)
[2024-04-16] MEDS: LIDOCAINE 4% PATCH 1 PATCH TOPICAL (07:48)
[2024-04-16] MEDS: FLEXERIL 5 MG PO ×2 (07:48→16:28)
[2024-04-16] MEDS: SENOKOT-S 1 TABLET PO ×2 (07:48→19:26)
[2024-04-16] MEDS: NEURONTIN 100 MG PO ×3 (07:48→22:56)
[2024-04-16] MEDS: THERAGRAN 1 TABLET PO (07:48)
[2024-04-16] MEDS: BACTROBAN 2% OINTMENT 1 APPLIC NASAL ×2 (07:48→19:29)
[2024-04-16 08:11] LABS: Glucose - Point of Care 117 mg/dl (70-99)
--- NOTE | 2024-04-16 08:15 | PTCARENOTE ---
Assumed care of patient at 0700. Pt is awake, alert, and oriented. Pt with complaints of sternal pain, PRN Dilaudid and Flexeril administered. Pt remains SR with HR 90's, BP 98/73 MAP 83. Pulse oximetry 93% on room air. Continued use of incentive
spirometer encouraged. Chest tubes x4 remain in place, no sign of air leak or crepitus, drainage serosanguineous. Pt tolerating PO medications with sips of water. Pt is due to void by 1230. Midsternal incision approximated with surgical adhesive.
Left leg incision with chapin wrap overlay in place, right leg incision approximated and SWING MANAGER. Left groin puncture approximated and MARITA. Right IJ cordis in place with KVO. Pt remains on insulin gtt per glycemic protocol. Pt currently OOB in chair with
call quevedo within reach.
--- NOTE | 2024-04-16 09:10 | W.PN.INTV ---
Today's Communication / Plan
Recommendations
Up OOB as tolerated
Pain control
Cardiac rehab consult
Insulin gtt with q1-2hr POCT BG - goal 140-180
Patient continues to be on insulin drip + remains CVICU status. Fat Purification Worker/pulmonary service will continue to follow along while he remains on insulin infusion. Once transferred to CVICU�telemetry then we will sign off.
Assessment
-
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
laryngeal pharynx (biopsy negative per ENT) who presents with abnormal stress test with chest pain. Patient had an exercise nuclear stress test on 04/09/2024 of which EKG was positive for ischemia, and patient was advised to go to the ER
immediately. Patient refused EMS and left against medical advice and drove himself to the ER. In triage he was hypertensive to 189/115, saturating 97% on room air, afebrile to 98.3 �F, breathing at 18 breaths/min and pulse rate was 80 bpm. Labs
showed a negative troponin at <0.012. Initial CXR showed no acute cardiopulmonary process. Patient was admitted to the IVU under cardiology, and left heart catheterization was performed on 04/10 showing multivessel disease with subtotal chronic
occlusion of the R PDA and RPL with collaterals from the LAD, a 70% lesion in the lower branch of the major OM, 40-50% narrowing of the ostium of the LAD, progressive, 50% in-stent restenosis in the distal aspect of the mid LAD stent, and an
occlusive 50% lesion immediately proximal to the second diagonal with a tubular 40% lesion in the distal LAD. There were normal filling pressures with LVEDP of 11 mmHg. Cardiothoracic surgery was consulted and today patient underwent a CABG X 4+
left atrial appendage exclusion after Plavix washout. There were no complications and the patient was transferred to the CVICU postoperatively for further care. Critical care services now consulted for additional management/recommendations.
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
Impression:
#Multivessel CAD with mid-LAD in-stent restenosis s/p CABG x 4 + PRESTON-exclusion - POD#1
#Acute anemia
#LLL pulmonary subcentimeter nodule
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
#Hx of asthma on Advair 100mcg prn
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
#Carotid artery stenosis s/p R-ICA stent (Nov 2023)
#Personal Hx of COVID-19 (2022)
Plan:
Patient successfully extubated on 04/15/2024
Maintain SpO2 >90-94%
prn nebulized bronchodilators
Pulmonary artery catheter removed
Maintain MAP>65
Replete electrolytes with K>4, Mg>2
Monitor chest tube output (mediastinal chest tubes X2)
Monitor hemoglobin
Monitor platelet count and coags
Transfuse blood product if needed to keep Hb>7, plt>50k
CT surgery managing chest tubes
Monitor blood sugar with goal BG 140-180
Insulin drip per protocol
Per patient, he underwent ENT biopsy in September 2023 -he is going to follow-up with them as an outpatient for removal of known 3cm R-sided laryngeal pharynx mass biopsy - Bx reportedly negative for malignancy. Unless mass has grown in size, no
immediate indication for repeat Bx at this time. Consider re-checking CT neck to re-image this pharyngeal mass.
Aspiration precautions
DVT prophylaxis
Early nutrition
Early mobilization
Patient continues to be on insulin drip with q1-2 hr POCT BG checks - he remains CVICU status. Fat Purification Worker/pulmonary service will continue to follow along while he remains on insulin infusion. Once transferred to CVICU�telemetry then we will sign
off.
Critical care statement: A total of 38 minutes of critical care time was provided for this patient today. This includes management of ventilator, spontaneous breathing trial, arterial blood gases, pressors, of unstable vital signs, evaluation of the
patient at bedside, reviewing the patient's pertinent medical records including radiographs, microbiology, laboratory evaluations, and discussion with primary team and critical care nursing.
Data:
CXR 04-16-2024: Interval removal of endotracheal tube; No pneumothorax.
CXR 04-15-2024: Postop cardiothoracic surgery; Mild linear atelectasis within the lower lungs. No evidence for significant pneumothorax.
CT Chest/Abd/Pelvis w/o cotnrast 04-11-2024:
1. No acute findings within the chest, abdomen, or pelvis.
2. Normal caliber thoracic and abdominal aorta. Heavily calcified thoracic arch as well as abdominal aorta. Tortuous, moderately calcified iliac arteries.
3. Densely calcified coronary arteries.
4. 3 to 4 mm nodule within the left lower lobe. Alternatively, this could represent a focus of scarring. A follow-up CT is recommended in 6-12 months.
CTA Neck w/wo IV contrast 09-26-2023:
NECK CTA:
There is significant vascular calcification of vessels at the aortic arch and bilaterally in the common carotid arteries. There is greater than 80% stenosis of the right internal carotid artery origin and approximately 60% narrowing of the origin of
the left ICA.
There is a significant amount of noncalcified plaque in the mid left common carotid artery with 50% narrowing.
There is calcification at the origin of the vertebral arteries bilaterally. There is minimal noncalcified and calcified plaque along the course of the left vertebral artery with less than 50% narrowing.
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 Squamous cell carcinoma of the larynx to be excluded.
There are mildly prominent but normal sized lymph nodes in the right side of the neck. There is no adenopathy.
Moderate degenerative disk and joint disease in the cervical spine. Moderate central canal stenosis at C6-7.
TTE 04-10-2024:
Mildly reduced left ventricular systolic function. LV ejection fraction is 40-
45% by Fleming's method of discs.
Stage I diastolic dysfunction suggestive of abnormal relaxation.
Mild to moderate mitral regurgitation.
Compared to previous echo 10/31/2023, the ejection fraction has declined from
55-60% to 40-45%. Prior ascending aortic measurement was 4.0cm and today is
3.8cm.
Subjective Dataa
Subjective Data
Date of Service:
Date of Service: April 16, 2024
Chief Complaint: Fat Purification Worker Follow Up
Subjective:
Seen today. Still on insulin drip, currently at 1.2 units/h. Daughter and at bedside � all questions were answered. Current heart rate 89, BP 107/67. He has some chest discomfort but otherwise denies shortness of breath, headache, fevers or
chills.
Review of Systems
General: Other (Negative unless mentioned above)
Objective Data
Data Reviewed
Vital Signs / I&O / Oxygen:
Vital Signs
Temp Pulse Resp BP Pulse Ox
97.7 F 99 15 149/87 93
04/16/24 16:25 04/16/24 17:45 04/16/24 16:25 04/16/24 17:00 04/16/24 16:37
Intake and Output
04/15/24 04/16/24 04/17/24
06:59 06:59 06:59
Intake Total 1259.7 / 1270.3 365.7 / 365.7
Output Total 2300 / 2300 2140 / 2140 290 / 290
Balance -2300 / -2300 -880.3 / -869.7 75.7 / 75.7
SaO2 [CPAP] 99
SaO2 [SIMV] 97
SaO2 93
Nasal Cannula flow liters per 2
minute
Physical Exam
General: Respiratory Distress (Negative) and Comfortable
HEENT: Normocephalic and Anicteric
Cardiovascular: S1-S2 and Peripheral Edema (Negative)
Respiratory: Wheeze (Negative), Crackles (Bibasilar), Rhonchi (Negative), Non-Labored Respirations and Chest Tube (mediastinal chest tubes x 2)
GI: Soft, Distended (Abdominal obesity), Non Tender and Normal Bowel Sounds
Neurology: AO x 3 and Tremors (Negative)
Skin: Warm, Dry and Cyanosis (Negative)
Labs/Micro/Reports
Lab Data
04/16/24 04:00
04/16/24 04:00
--- NOTE | 2024-04-16 09:12 | W.PN.CD ---
Today's Communication / Plan
-
Continue routine post operative care.
Encourage incentive spirometry.
Ambulate when appropriate with surgery.
Impression / Plan
-
Impression/Plan: 78 y/o male with HTN/statin intolerance, asthma, prediabetes, JOSE ANGEL s/p carotid artery stent and CAD s/p prior PCI to the LCx (STEMI/cardiac arrest 2009), LAD (STEMI, 2006) and RCA (01/10/2021) admitted with chest pain and a high risk
stress test, found to have multivessel CAD.
#CAD/Abnormal stress test
-Long history of CAD (PCI to LAD for STEMI 2006, PCI to LCx for STEMI/cardiac arrest 2009, PCI to RCA for angina 01/10/2021).
-Stress test 04/09/[address] depressions in inferolateral leads and [address] elevation in aVR. No stress imaging obtained.
-S/P CABG 04/15/[address] England (in situ HO�LAD, SVG to high diagonal sequential to lower branch of the OM, SVG to RPLB).
-Preop LVEF 40% without specific RWMA, post LVEF 50% with no new regional wall motion abnormalities
-S/P LAAL (#35 Atriclip).
-CI 2.16 L/min/m2.
-Continue aspirin, amiodarone, clopidogrel, metoprolol.
-Statin intolerant. Start ezetimibe 10 mg daily. He will need outpatient PCSK9i.
#Tonsillar mass
-Seen upon intubation, ENT to evaluate.
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
-Previous EF was 55-60% on 10/31/2023.
-EF of 40-45% on echo with mild to moderate MR.
-Cardizem CD changed to Toprol-XL for GDMT.
-Patient will need further GDMT as hospitalization progresses, consider SGLT2, ARNi.
#HLD/Statin intolerance
-Chronic. Uncontrolled. LDL 127.
-Statin intolerant, start ezetimibe and consider PCSK9 inhibitors as an outpatient.
-Goal LDL < 55.
#JOSE ANGEL
-Chronic, stable.
-S/P carotid artery stent (Precise 9.0 x 30 self-expanding stent).
-Carotid duplex shows patent stent without restenosis.
-Previously on DAPT.
-Will need only single antiplatelet therapy post CABG.
#HTN
-Controlled.
-Resume medical therapy postoperatively.
#DM
-New diagnosis; hemoglobin A1c 6.7%.
-Monitor blood glucose; SSI.
Subjective/Interval History:
Patient extubated yesterday without incident.
Norepinephrine weaned.
Oxygen titrated off, now 93% on RA.
DATA:
Cardiac Catheterization, 04/10/2024:
CONCLUSIONS
1. Right dominant circulation with subtotal chronic occlusion of the RPDA and RPL with collaterals from the LAD, a 70% lesion in the lower branch of the major obtuse marginal, 40-50% narrowing in the ostium of the LAD, progressive, 50% in-stent
restenosis in the distal aspect of the mid LAD stent, an occlusive 50% lesion immediately proximal to the second diagonal (IFR = 0.87) and a tubular, 40% lesion in the distal LAD, proximal to the apex.
2. Normal filling pressures (LVEDP = 11 mmHg at 78.5 kg).
Intraoperative LAYNE, 04/15/2024:
CONCLUSIONS
Mild global LV dysfunction. Overall LVEF is approximately 40-45%.
Stage I Diastolic dysfunction.
Trace tricuspid regurgitation.
Trace pulmonic insufficiency.
Mild mitral regurgitation.
MR jet is central likely due to annular dilation.
Mild aortic sclerosis without stenosis.
Mid ascending aorta is mildly dilated measuring 3.8 cm at the level of the RPA.
Moderate sessile atheroma seen in the descending aorta and distal arch.
POST OPERATIVE FINDINGS
The patient underwent a CABG and PRESTON clipping. Postop rhythm remains sinus.
RV and LV function both appear more vigorous. Overall LVEF is now
approximately 55% with normal regional wall motion. The PRESTON is entirely
clipped with no residual lumen confirmed by 2D and color Doppler. TV and PV
function appear normal. AV function appears normal. Mild central MR is
unchanged from the preop level. MR vena contracta remains around 0.3 cm c/w
mild MR. Aortic scan is unchanged.
Physical Exam
Vital Signs/Labs
Vital Signs
Temp Pulse Resp BP Pulse Ox
36.4 C 91 16 98/73 93
04/16/24 05:00 04/16/24 08:00 04/16/24 08:00 04/16/24 08:00 04/16/24 08:37
04/14/24 04/15/24 04/16/24
11:59 11:59 11:59
Actual Weight 76.5 kg 76.1 kg 77.6 kg
04/16/24 04:00
04/16/24 04:00
PT 17.9 Sec (11.4-14.6) H 04/15/24 12:14
INR 1.49 04/15/24 12:14
APTT 31.9 Sec (23.4-35.0) 04/15/24 12:14
Magnesium 2.2 mg/dl (1.6-2.3) 04/16/24 04:00
Triglycerides 119 mg/dl (10-149) 04/10/24 03:46
LDL Cholesterol, Calc 127 mg/dl 04/10/24 03:46
VLDL Cholesterol, Calc 23 mg/dl (0-30) 04/10/24 03:46
HDL Cholesterol 43 mg/dl 04/10/24 03:46
Physical Exam
Constitutional: No acute distress and Comfortable
EENT: Anicteric and Moist mucous membranes
Cardiovascular: Rhythm & rate is regular, Pedal edema is absent, JVD pressure is normal, S1S2 is normal and Murmur/rub/gallop absent
Respiratory: Respiratory effort normal, Lungs clear to auscul., Wheeze Absent, Crackles Absent and Rhonchi Absent
GI: Soft, Distention absent, Flat, Non tender and Normal bowel sounds
Neuro/Psych: AO x 3
Data Reviewed
-
Date of Service: April 16, 2024
Medical Decision Making: Reviewed Test Results, Independent Historian Assessment, Test Interpretation and Review of Case with other Provider
EKG: Tracing Personally Visualized and interpreted and Report Reviewed by me
Echo: Tracing Personally Visualized and interpreted and Report Reviewed by me
X-Ray/CT/US/MRI/NUC/PET: Image Personally Visualized and interpreted and Report Reviewed by me
Medical Tests (PFT, Pathology etc): Report Reviewed by me
Labs: Labs Reviewed by me
[2024-04-16] MEDS: NOVOLOG FLEXPEN SC ×2 (10:01→17:02)
[2024-04-16] MEDS: NSS IV (10:03)
[2024-04-16 10:08] LABS: Glucose - Point of Care 131 mg/dl (70-99)
--- NOTE | 2024-04-16 10:19 | PTCARENOTE ---
Pleural chest tubes x2 d/c'd per order. V wire insulated. Pt now back OOB in chair. Pt remains SR with HR 80's-90's. BP 100/69 MAP 80. Pulse oximetry 93% on room air. Pt remains on insulin gtt per glycemic protocol.
[2024-04-16 12:26] LABS: Glucose - Point of Care 104 mg/dl (70-99)
[2024-04-16] MEDS: ULTRAM 50 MG PO ×2 (12:30→19:26)
[2024-04-16] MEDS: NOVOLOG FLEXPEN 4 UNITS SC (12:32)
--- NOTE | 2024-04-16 13:17 | PTCARENOTE ---
Pt ambulated with RN assistance in hallway, tolerated well, no issues. Pt remains SR with HR 90's. BP 107/67 MAP 79.
[2024-04-16] MEDS: FERRLECIT 110 MG IV (13:59)
[2024-04-16] MEDS: NOVOLIN R INSULIN INFUSION 100 IV (14:58)
[2024-04-16 15:02] LABS: Glucose - Point of Care 87 mg/dl (70-99)
--- NOTE | 2024-04-16 15:06 | PTCARENOTE ---
Patient received from previous RN resting oob in chair, AAO X 3, states pain controlled at this time - family at bedside. NSR via cm, SaO2 @ 94% on RA. RIJ Cordis w/kvo infusing. Insulin infusing, titrating per glycemic protocol. Mediastinal chest
tubes x 2, Y-connected to one pleurevac - no air leak or crepitus noted. Epicardial V-wire, insulated to chest wall. All procedural sites stable. Patient updated to plan of care for the afternoon, in agreement. See work list for full assessment and
interventions performed.
--- NOTE | 2024-04-16 16:31 | PTCARENOTE ---
VS obtained, assessment stable. Medicated for sternal discomfort, see MAR. at bedside for visit.
[2024-04-16 17:01] LABS: Glucose - Point of Care 93 mg/dl (70-99)
[2024-04-16] MEDS: LOPRESSOR 5 MG IV (18:12)
[2024-04-16 19:11] LABS: Glucose - Point of Care 191 mg/dl (70-99)
[2024-04-16] MEDS: LOPRESSOR 25 MG PO (19:29)
[2024-04-16] MEDS: DILAUDID 0.5 MG IV (20:33)
[2024-04-16 20:40] LABS: Glucose - Point of Care 158 mg/dl (70-99)
[2024-04-16 23:00] LABS: Glucose - Point of Care 87 mg/dl (70-99)
[2024-04-16 23:00] LABS: Glucose - Point of Care 22 mg/dl (70-99)
[2024-04-17] VITALS (21 sets, daily range): BP systolic 103–144; BP diastolic 61–91; PULSE 96; O2SAT 95; BMI 27.3
[2024-04-17 02:11] LABS: Glucose - Point of Care 63 mg/dl (70-99)
[2024-04-17 02:23] LABS: Glucose - Point of Care 64 mg/dl (70-99)
[2024-04-17] MEDS: DILAUDID 0.5 MG IV (02:30)
[2024-04-17 02:43] LABS: Glucose - Point of Care 82 mg/dl (70-99)
[2024-04-17 05:23] LABS: Glucose - Point of Care 106 mg/dl (70-99)
[2024-04-17 05:38] LABS: Hematocrit 31.5 % (39.0-52.0); Hemoglobin 10.2 g/dL (13.0-18.0); Mean Corp Hgb Conc. 32.4 g/dL (33.0-37.0); Mean Corpuscular Hgb 28.5 pg (27.0-31.0); Mean Platelet Volume 10.8 fL (7.4-10.4); Platelet Count 198 10^3/uL (130-400); Red Blood Cell Count 3.58 10^6/uL (4.70-6.10); Red Cell Dist. Width 15.2 % (11.5-14.5); White Blood Cell Count 12.4 10^3/uL (4.8-10.8)
[2024-04-17 06:01] LABS: Blood Urea Nitrogen 31 mg/dl (9-20); Calcium 8.7 mg/dl (8.4-10.2); Carbon Dioxide 25 mmol/L (22-30); Chloride 104 mmol/L (98-107); Estimated Creatinine Clearance 42 ml/min; Glucose 101 mg/dl (70-99); Magnesium 2.1 mg/dl (1.6-2.3); Potassium 4.4 mmol/L (3.5-5.1); Sodium 136 mmol/L (135-145); eGFR 55.53
--- NOTE | 2024-04-17 07:11 | W.PN.CT ---
Today's Communication / Plan
-
-pod #2
-no issues overnight
-CT output: 2 meds 100/190 in 12/24 hrs
-current meds (ASA, Plavix, Lopressor, Amio, Protonix, iv iron, Neurontin, Lidocaine patch). Intolerant of statins
-plan is to pull pw and d/c med CT
-encourage IS, OOB
Assessment / Plan
-
- MV- CAD with proximal LAD in-stent restenosis- s/p CABG x4 (In situ HO to LAD, Ao to RSVG to high diagonal sequential to lower branch of the OM, Ao to RSVG to RP LB); LAAE (35 mm clip) on 04/15/[address] England, pod #2
- Intraop LAYNE: LVEF preop was approximately 40% with global hypokinesis and no specific regional wma. Following surgery, his EF did improve to approximately 50% with no new regional wma. He had ischemic mitral valve insufficiency was approximately
mild to moderate preoperatively. Following surgery with improvement in EF, his mitral valve insufficiency was mild at most. His PRESTON was free of any thrombus or debris preoperatively and found to be totally occluded flush to the base with no flow on
color Doppler.
- History of STEMI's with multiple PCI's
- Hypertension
- Hyperlipidemia
- CKD 3a (Cr 1.1-1.3 preop)
- Asthma
- [id number]-legbdcpxj diabetes mellitus type 2 (HgA1c 6.7)
- S/P R carotid artery stent (Precise 9.0 x 30 self-expanding stent)-Carotid duplex shows patent stent without restenosis.
- Mild to moderate mitral valve insufficiency, secondary to ischemic cardiomyopathy [functional type IIIb]
- Melanoma
- Gout
- Ischemic cardiomyopathy with LVEF of 40%
- Tobacco use, cigars
- Large unilateral tonsil noted on intubation - pt follows with ENT outpatient for possible removal in the future
- Intolerance of statins with myalgia and hx torn ligaments
- Acute postop blood loss anemia - stable, no transfusion
- Acute postop atelectasis
- Acute postop hypovolemia with subsequent hypervolemia
Discussed patient care with: Nursing and Care Team
Subjective
Procedure
s/p CABG x4 (In situ HO to LAD, Ao to RSVG to high diagonal sequential to lower branch of the OM, Ao to RSVG to RP LB); LAAE (35 mm clip) on 04/15/[address] England
-
Date of Service: April 17, 2024
Objective Data
-
Lab Results
04/17/24 05:19
04/17/24 05:19
PT 17.9 Sec (11.4-14.6) H 04/15/24 12:14
INR 1.49 04/15/24 12:14
APTT 31.9 Sec (23.4-35.0) 04/15/24 12:14
Vital Signs
Vital Signs
Temp Pulse Resp BP Pulse Ox
98 F 105 18 104/81 93
04/17/24 00:00 04/17/24 06:40 04/17/24 00:00 04/17/24 06:00 04/16/24 16:37
CT Intake/Output/Weight
04/16/24 04/17/24 04/17/24
18:59 06:59 18:59
Intake Total 376.3 / 376.3
Output Total 415 / 825 410 / 825
Balance -38.7 / -448.7 -410 / -448.7
SaO2: 93
Physical Exam
-
General: Awake and AOx3
Cardiovascular: No Murmurs
Respiratory: Decreased Breath Sounds
Incision: Clean, Dry and Intact
Extremities: Other (trace edema b/l)
Data Reviewed
-
Lab Results: Results Reviewed
Medications: Active Meds Reviewed
Chest X-Ray: Report Reviewed and Image Reviewed
ECG: Report Reviewed and Image Reviewed
[2024-04-17] MEDS: TYLENOL 1000 MG PO ×3 (07:16→20:48)
--- NOTE | 2024-04-17 07:24 | W.PN.CD ---
Today's Communication / Plan
-
Continue post procedure recovery.
Chest tube management per CT surgery.
Not quite ready for ARNi.
Ambulate.
Impression / Plan
-
Impression/Plan: 78 y/o male with HTN/statin intolerance, asthma, prediabetes, JOSE ANGEL s/p carotid artery stent and CAD s/p prior PCI to the LCx (STEMI/cardiac arrest 2009), LAD (STEMI, 2006) and RCA (01/10/2021) admitted with chest pain and a high risk
stress test, found to have multivessel CAD.
#CAD/Abnormal stress test
-Long history of CAD (PCI to LAD for STEMI 2006, PCI to LCx for STEMI/cardiac arrest 2009, PCI to RCA for angina 01/10/2021).
-Stress test 04/09/[address] depressions in inferolateral leads and [address] elevation in aVR. No stress imaging obtained.
-S/P CABG 04/15/[address] England (in situ HO�LAD, SVG to high diagonal sequential to lower branch of the OM, SVG to RPLB).
-Preop LVEF 40% without specific RWMA, post LVEF 50% with no new regional wall motion abnormalities
-S/P LAAL (#35 Atriclip).
-CI 2.16 L/min/m2.
-Continue aspirin, amiodarone, clopidogrel, metoprolol.
-Statin intolerant. Continue ezetimibe 10 mg daily. He will need outpatient PCSK9i.
#Tonsillar mass
-Seen upon intubation, ENT to evaluate.
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
-Previous EF was 55-60% on 10/31/2023.
-EF of 40-45% on echo with mild to moderate MR.
-Cardizem CD changed to Toprol-XL for GDMT.
-Patient will need further GDMT as hospitalization progresses, consider SGLT2, ARNi.
#HLD/Statin intolerance
-Chronic. Uncontrolled. LDL 127.
-Statin intolerant. Continue ezetimibe and consider PCSK9 inhibitors as an outpatient.
-Goal LDL < 55.
#JOSE ANGEL
-Chronic, stable.
-S/P carotid artery stent (Precise 9.0 x 30 self-expanding stent).
-Carotid duplex shows patent stent without restenosis.
-Previously on DAPT.
-Will need only single antiplatelet therapy post CABG.
#HTN
-Controlled.
-Resume medical therapy postoperatively.
#DM
-New diagnosis; hemoglobin A1c 6.7%.
-Monitor blood glucose; SSI.
Subjective/Interval History:
Weight is mildly up.
Pain relatively controlled.
DATA:
Cardiac Catheterization, 04/10/2024:
CONCLUSIONS
1. Right dominant circulation with subtotal chronic occlusion of the RPDA and RPL with collaterals from the LAD, a 70% lesion in the lower branch of the major obtuse marginal, 40-50% narrowing in the ostium of the LAD, progressive, 50% in-stent
restenosis in the distal aspect of the mid LAD stent, an occlusive 50% lesion immediately proximal to the second diagonal (IFR = 0.87) and a tubular, 40% lesion in the distal LAD, proximal to the apex.
2. Normal filling pressures (LVEDP = 11 mmHg at 78.5 kg).
Intraoperative LAYNE, 04/15/2024:
CONCLUSIONS
Mild global LV dysfunction. Overall LVEF is approximately 40-45%.
Stage I Diastolic dysfunction.
Trace tricuspid regurgitation.
Trace pulmonic insufficiency.
Mild mitral regurgitation.
MR jet is central likely due to annular dilation.
Mild aortic sclerosis without stenosis.
Mid ascending aorta is mildly dilated measuring 3.8 cm at the level of the RPA.
Moderate sessile atheroma seen in the descending aorta and distal arch.
POST OPERATIVE FINDINGS
The patient underwent a CABG and PRESTON clipping. Postop rhythm remains sinus.
RV and LV function both appear more vigorous. Overall LVEF is now
approximately 55% with normal regional wall motion. The PRESTON is entirely
clipped with no residual lumen confirmed by 2D and color Doppler. TV and PV
function appear normal. AV function appears normal. Mild central MR is
unchanged from the preop level. MR vena contracta remains around 0.3 cm c/w
mild MR. Aortic scan is unchanged.
Physical Exam
Vital Signs/Labs
Vital Signs
Temp Pulse Resp BP Pulse Ox
36.6 C 105 18 104/81 93
04/17/24 00:00 04/17/24 06:40 04/17/24 00:00 04/17/24 06:00 04/17/24 07:16
04/15/24 04/16/24 04/17/24
11:59 11:59 11:59
Actual Weight 76.1 kg 77.6 kg 78.9 kg
04/17/24 05:19
04/17/24 05:19
PT 17.9 Sec (11.4-14.6) H 04/15/24 12:14
INR 1.49 04/15/24 12:14
APTT 31.9 Sec (23.4-35.0) 04/15/24 12:14
Magnesium 2.1 mg/dl (1.6-2.3) 04/17/24 05:19
Triglycerides 119 mg/dl (10-149) 04/10/24 03:46
LDL Cholesterol, Calc 127 mg/dl 04/10/24 03:46
VLDL Cholesterol, Calc 23 mg/dl (0-30) 04/10/24 03:46
HDL Cholesterol 43 mg/dl 04/10/24 03:46
Physical Exam
Constitutional: No acute distress and Comfortable
EENT: Anicteric and Moist mucous membranes
Cardiovascular: Rhythm & rate is regular, Pedal edema is absent, JVD pressure is normal and S1S2 is normal
Respiratory: Respiratory effort normal and Other (Decreased in the right lower lobe.)
GI: Soft, Distention absent, Flat, Non tender and Normal bowel sounds
Neuro/Psych: AO x 3
Other: Cath Site (Right radial access site is C/D/I.)
Data Reviewed
-
Date of Service: April 17, 2024
Medical Decision Making: Reviewed Test Results, Independent Historian Assessment and Test Interpretation
EKG: Tracing Personally Visualized and interpreted and Report Reviewed by me
Echo: Tracing Personally Visualized and interpreted and Report Reviewed by me
X-Ray/CT/US/MRI/NUC/PET: Image Personally Visualized and interpreted and Report Reviewed by me
Medical Tests (PFT, Pathology etc): Image Personally Visualized and interpreted and Report Reviewed by me
Labs: Labs Reviewed by me
Old Records: Reviewed
--- NOTE | 2024-04-17 07:30 | PTCARENOTE ---
Received pt from baggage handler RN; pt AAOx3 and resting comfortably in chair; NSR BBB on monitor and VSS; RIJ Cordis and PIV x1 patent; Insulin infusing per Glycemic protocol see flow sheet for details; Lungs diminished; IS to 1000; CT x2 to -20 wall
suction no air leak and no crepitus noted; positive bowel sounds; pt voiding clear yellow urine; palpable pulses throughout; +1 hand edema; surgical sites C/D/I; see nursing documentation for further details.
[2024-04-17 07:37] LABS: Glucose - Point of Care 94 mg/dl (70-99)
[2024-04-17] MEDS: BACTROBAN 2% OINTMENT 1 APPLIC NASAL ×2 (07:55→20:47)
[2024-04-17] MEDS: NOVOLOG FLEXPEN SC (07:55)
[2024-04-17] MEDS: SENOKOT-S 1 TABLET PO ×2 (07:56→20:48)
[2024-04-17] MEDS: PROTONIX 40 MG PO (07:56)
[2024-04-17] MEDS: THERAGRAN 1 TABLET PO (07:56)
[2024-04-17] MEDS: NEURONTIN 100 MG PO ×3 (07:56→20:49)
[2024-04-17] MEDS: MAGNESIUM OXIDE 500 MG PO ×2 (07:56→20:48)
[2024-04-17] MEDS: VITAMIN C 1000 MG PO (07:56)
[2024-04-17] MEDS: PLAVIX 75 MG PO (07:56)
[2024-04-17] MEDS: LIDOCAINE 4% PATCH TOPICAL (07:57)
[2024-04-17] MEDS: LOPRESSOR 25 MG PO ×2 (07:57→20:49)
[2024-04-17] MEDS: PACERONE 200 MG PO ×4 (07:57→20:49)
[2024-04-17] MEDS: LOW STRENGTH ASPIRIN 81 MG PO (07:57)
[2024-04-17 08:56] LABS: Glucose - Point of Care 185 mg/dl (70-99)
--- NOTE | 2024-04-17 08:56 | PTCARENOTE ---
V wire pulled by CVPA.
--- NOTE | 2024-04-17 09:21 | W.PN.INTV ---
Today's Communication / Plan
Recommendations
Up OOB as tolerated
Pain control
Maintain SpO2 >90-94%
Cardiac rehab consult
Goal BG 140-180mg/dL
Patient now CVICU�telemetry status. Plane Captain/Pulmonary service will now sign off. Please reconsult if there are any additional questions/concerns, or if patient's respiratory status deteriorates.
Assessment
-
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
laryngeal pharynx (biopsy negative per ENT) who presents with abnormal stress test with chest pain. Patient had an exercise nuclear stress test on 04/09/2024 of which EKG was positive for ischemia, and patient was advised to go to the ER
immediately. Patient refused EMS and left against medical advice and drove himself to the ER. In triage he was hypertensive to 189/115, saturating 97% on room air, afebrile to 98.3 �F, breathing at 18 breaths/min and pulse rate was 80 bpm. Labs
showed a negative troponin at <0.012. Initial CXR showed no acute cardiopulmonary process. Patient was admitted to the IVU under cardiology, and left heart catheterization was performed on 04/10 showing multivessel disease with subtotal chronic
occlusion of the R PDA and RPL with collaterals from the LAD, a 70% lesion in the lower branch of the major OM, 40-50% narrowing of the ostium of the LAD, progressive, 50% in-stent restenosis in the distal aspect of the mid LAD stent, and an
occlusive 50% lesion immediately proximal to the second diagonal with a tubular 40% lesion in the distal LAD. There were normal filling pressures with LVEDP of 11 mmHg. Cardiothoracic surgery was consulted and today patient underwent a CABG X 4+
left atrial appendage exclusion after Plavix washout. There were no complications and the patient was transferred to the CVICU postoperatively for further care. Critical care services now consulted for additional management/recommendations.
Chronic conditions MARINE OILER: Asthma, CAD s/p stent to LAD (remote) + SANKET to RCA and RPL-1 (01/2021), hypertension, hyperlipidemia, history of NC, gout, personal history of COVID-19 (2022), CKD, history of right upper extremity malignant melanoma,
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
Impression:
#Multivessel CAD with mid-LAD in-stent restenosis s/p CABG x 4 + PRESTON-exclusion - POD#2
#Acute anemia
#LLL pulmonary subcentimeter nodule
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
#Hx of asthma on Advair 100mcg prn - not currently in an acute exacerbation
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
#Carotid artery stenosis s/p R-ICA stent (Nov 2023)
#Personal Hx of COVID-19 (2022)
Plan:
Patient successfully extubated on 04/15/2024
Maintain SpO2 >90-94%
prn nebulized bronchodilators
Pulmonary artery catheter removed
Removal of right IJ cordis as per cardiothoracic surgery
Maintain MAP>65
Replete electrolytes with K>4, Mg>2
Mediastinal chest tubes x2 removed today
Monitor hemoglobin
Monitor platelet count and coags
Transfuse blood product if needed to keep Hb>7, plt>50k
CT surgery managing chest tubes
Monitor blood sugar with goal BG 140-180
SQ insulin as needed to maintain BG goal as above
Per patient, he underwent ENT biopsy in September 2023 -he is going to follow-up with them as an outpatient for removal of known 3cm R-sided laryngeal pharynx mass biopsy - Bx reportedly negative for malignancy. Unless mass has grown in size, no
immediate indication for repeat Bx at this time. Consider re-checking CT neck to re-image this pharyngeal mass.
Aspiration precautions
DVT prophylaxis
Early nutrition
Early mobilization
Patient now CVICU�telemetry status. Plane Captain/Pulmonary service will now sign off. Thank you for allowing us to be involved in the care of this patient. Please reconsult if there are any additional questions/concerns, or if patient's
respiratory status deteriorates.
Total time spent today was 55 minutes for this encounter. Time includes reviewing laboratory test/imaging results, reviewing pertinent medical records, obtaining and reviewing medical history, performing an appropriate exam, ordering medications,
tests and procedures. Time also includes documentation of this encounter, coordinating patient care and communicating with other healthcare professionals. Total time does not include separately billed tests performed on this date of service.
Data:
CXR 04-17-2024: Interval removal of bilateral chest tubes. Two remaining central chest tubes, possibly pericardial drains. No evidence for significant pneumothorax.
CXR 04-16-2024: Interval removal of endotracheal tube; No pneumothorax.
CXR 04-15-2024: Postop cardiothoracic surgery; Mild linear atelectasis within the lower lungs. No evidence for significant pneumothorax.
CT Chest/Abd/Pelvis w/o contrast 04-11-2024:
1. No acute findings within the chest, abdomen, or pelvis.
2. Normal caliber thoracic and abdominal aorta. Heavily calcified thoracic arch as well as abdominal aorta. Tortuous, moderately calcified iliac arteries.
3. Densely calcified coronary arteries.
4. 3 to 4 mm nodule within the left lower lobe. Alternatively, this could represent a focus of scarring. A follow-up CT is recommended in 6-12 months.
CTA Neck w/wo IV contrast 09-26-2023:
NECK CTA:
There is significant vascular calcification of vessels at the aortic arch and bilaterally in the common carotid arteries. There is greater than 80% stenosis of the right internal carotid artery origin and approximately 60% narrowing of the origin of
the left ICA.
There is a significant amount of noncalcified plaque in the mid left common carotid artery with 50% narrowing.
There is calcification at the origin of the vertebral arteries bilaterally. There is minimal noncalcified and calcified plaque along the course of the left vertebral artery with less than 50% narrowing.
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 Squamous cell carcinoma of the larynx to be excluded.
There are mildly prominent but normal sized lymph nodes in the right side of the neck. There is no adenopathy.
Moderate degenerative disk and joint disease in the cervical spine. Moderate central canal stenosis at C6-7.
TTE 04-10-2024:
Mildly reduced left ventricular systolic function. LV ejection fraction is 40-
45% by Fleming's method of discs.
Stage I diastolic dysfunction suggestive of abnormal relaxation.
Mild to moderate mitral regurgitation.
Compared to previous echo 10/31/2023, the ejection fraction has declined from
55-60% to 40-45%. Prior ascending aortic measurement was 4.0cm and today is
3.8cm.
Subjective Dataa
Subjective Data
Date of Service:
Date of Service: April 17, 2024
Chief Complaint: Plane Captain Follow Up and Pulmonary Follow Up
Subjective:
Seen and evaluated today at bedside. Heart rate 77. He is on room air breathing comfortably. No acute events reported from overnight. He denies headache, shortness of breath, abdominal pain, fevers or chills.
Review of Systems
General: Other (Negative unless mentioned above)
Objective Data
Data Reviewed
Vital Signs / I&O / Oxygen:
Vital Signs
Temp Pulse Resp BP Pulse Ox
97.5 F 91 20 114/67 95
04/17/24 07:37 04/17/24 07:57 04/17/24 07:37 04/17/24 07:57 04/17/24 07:37
Intake and Output
04/16/24 04/17/24 04/18/24
06:59 06:59 06:59
Intake Total 1259.7 / 1270.3 376.3 / 376.3
Output Total 2140 / 2140 825 / 825
Balance -880.3 / -869.7 -448.7 / -448.7
SaO2 [CPAP] 99
SaO2 [SIMV] 97
SaO2 95
Nasal Cannula flow liters per 2
minute
Physical Exam
General: Respiratory Distress (Negative) and Comfortable
HEENT: Normocephalic and Anicteric
Cardiovascular: S1-S2 and Peripheral Edema (Negative)
Respiratory: Wheeze (Negative), Crackles (Bibasilar), Rhonchi (Negative) and Non-Labored Respirations
GI: Soft, Distended (Abdominal obesity), Non Tender and Normal Bowel Sounds
Neurology: AO x 3 and Tremors (Negative)
Skin: Warm, Dry and Cyanosis (Negative)
Labs/Micro/Reports
Lab Data
04/17/24 05:19
04/17/24 05:19
[2024-04-17] MEDS: ZETIA 10 MG PO (09:33)
[2024-04-17 09:36] LABS: Glucose - Point of Care 161 mg/dl (70-99)
[2024-04-17 10:12] LABS: Glucose - Point of Care 147 mg/dl (70-99)
--- NOTE | 2024-04-17 10:27 | PTCARENOTE ---
Mediastinal Chest tubes x2 removed per order; Insulin drip discontinued; Pt ambulatory in hallway with cardiac rehab.
--- NOTE | 2024-04-17 11:34 | CM ---
CM following for DC planning needs.
Patient POD#2 from CABG.
Noted Cardiac Rehab evaluation; patient doing well.
Antic. DC to home w/ CT Transitional Care RN once medically stable.
CM to follow.
[2024-04-17 11:38] LABS: Glucose - Point of Care 127 mg/dl (70-99)
[2024-04-17] MEDS: NOVOLOG FLEXPEN-MODERATE RESISTANCE SC (12:04)
--- NOTE | 2024-04-17 13:33 | PTCARENOTE ---
NSR on monitor and VSS; assessment unchanged.
[2024-04-17] MEDS: FERRLECIT 110 MG IV (13:43)
[2024-04-17 16:33] LABS: Glucose - Point of Care 157 mg/dl (70-99)
[2024-04-17] MEDS: NOVOLOG FLEXPEN-MODERATE RESISTANCE 1 UNITS SC (16:45)
[2024-04-17] MEDS: NSS 500 IV (16:46)
[2024-04-18] VITALS (9 sets, daily range): BP systolic 106–148; BP diastolic 49–82; PULSE 71; O2SAT 95–96; BMI 26.9
--- NOTE | 2024-04-18 03:39 | W.PN.CT ---
Today's Communication / Plan
-
-pod #3
-no issues overnight, ambulating in hallways
-weaned off O2
-current meds (ASA, Plavix, Lopressor, Amio, Protonix, iv iron, Neurontin, Lidocaine patch). Intolerant of statins
-encourage IS, OOB, ambulate
Assessment / Plan
-
- MV- CAD with proximal LAD in-stent restenosis- s/p CABG x4 (In situ HO to LAD, Ao to RSVG to high diagonal sequential to lower branch of the OM, Ao to RSVG to RP LB); LAAE (35 mm clip) on 04/15/[address] England, pod #3
- Intraop LAYNE: LVEF preop was approximately 40% with global hypokinesis and no specific regional wma. Following surgery, his EF did improve to approximately 50% with no new regional wma. He had ischemic mitral valve insufficiency was approximately
mild to moderate preoperatively. Following surgery with improvement in EF, his mitral valve insufficiency was mild at most. His PRESTON was free of any thrombus or debris preoperatively and found to be totally occluded flush to the base with no flow on
color Doppler.
- History of STEMI's with multiple PCI's
- Hypertension
- Hyperlipidemia
- CKD 3a (Cr 1.1-1.3 preop)
- Asthma
- Kew-ftaevnd-abnoitxfk diabetes mellitus type 2 (HgA1c 6.7)
- S/P R carotid artery stent (Precise 9.0 x 30 self-expanding stent)-Carotid duplex shows patent stent without restenosis.
- Mild to moderate mitral valve insufficiency, secondary to ischemic cardiomyopathy [functional type IIIb]
- Melanoma
- Gout
- Ischemic cardiomyopathy with LVEF of 40%
- Tobacco use, cigars
- Large unilateral tonsil noted on intubation - pt follows with ENT outpatient for possible removal in the future
- Intolerance of statins with myalgia and hx torn ligaments
- Acute postop blood loss anemia - stable, no transfusion
- Acute postop atelectasis
- Acute postop hypovolemia with subsequent hypervolemia
Discussed patient care with: Nursing and Care Team
Subjective
Procedure
s/p CABG x4 (In situ HO to LAD, Ao to RSVG to high diagonal sequential to lower branch of the OM, Ao to RSVG to RP LB); LAAE (35 mm clip) on 04/15/[address] England
-
Date of Service: April 18, 2024
Objective Data
-
PT 17.9 Sec (11.4-14.6) H 04/15/24 12:14
INR 1.49 04/15/24 12:14
APTT 31.9 Sec (23.4-35.0) 04/15/24 12:14
Vital Signs
Vital Signs
Temp Pulse Resp BP Pulse Ox
98.4 F 86 18 108/49 94
04/18/24 00:00 04/18/24 03:05 04/18/24 00:00 04/18/24 00:00 04/17/24 16:01
CT Intake/Output/Weight
04/17/24 04/17/24 04/18/24
06:59 18:59 06:59
Output Total 410 / 825 20 / 20
Balance -410 / -448.7 -20 / -20
SaO2: 94
Physical Exam
-
General: Awake and AOx3
Cardiovascular: No Murmurs
Respiratory: Decreased Breath Sounds
Incision: Clean, Dry and Intact
Extremities: Other (trace edema b/l)
Data Reviewed
-
Lab Results: Results Reviewed
Medications: Active Meds Reviewed
Chest X-Ray: Report Reviewed and Image Reviewed
ECG: Report Reviewed and Image Reviewed
[2024-04-18 05:45] LABS: Hemoglobin 10.5 g/dL (13.0-18.0); Mean Corp Hgb Conc. 33.9 g/dL (33.0-37.0); Mean Corpuscular Hgb 28.8 pg (27.0-31.0); Mean Corpuscular Volume 85.2 fL (80.0-94.0); Mean Platelet Volume 10.9 fL (7.4-10.4); Platelet Count 210 10^3/uL (130-400); Red Blood Cell Count 3.64 10^6/uL (4.70-6.10); White Blood Cell Count 10.6 10^3/uL (4.8-10.8)
[2024-04-18 06:04] LABS: Blood Urea Nitrogen 24 mg/dl (9-20); Calcium 9.2 mg/dl (8.4-10.2); Carbon Dioxide 27 mmol/L (22-30); Chloride 105 mmol/L (98-107); Estimated Creatinine Clearance 50 ml/min; Glucose 110 mg/dl (70-99); Magnesium 1.9 mg/dl (1.6-2.3); Potassium 4.5 mmol/L (3.5-5.1); Sodium 138 mmol/L (135-145); eGFR > 60.00
[2024-04-18] MEDS: TYLENOL PO (06:43)
[2024-04-18] MEDS: NOVOLOG FLEXPEN-MODERATE RESISTANCE SC (07:51)
[2024-04-18] MEDS: VITAMIN C 1000 MG PO (07:52)
[2024-04-18] MEDS: LOW STRENGTH ASPIRIN 81 MG PO (07:52)
[2024-04-18] MEDS: PROTONIX 40 MG PO (07:52)
[2024-04-18] MEDS: PLAVIX 75 MG PO (07:52)
[2024-04-18] MEDS: NEURONTIN 100 MG PO (07:52)
[2024-04-18] MEDS: SENOKOT-S 1 TABLET PO (07:52)
[2024-04-18] MEDS: THERAGRAN 1 TABLET PO (07:52)
[2024-04-18] MEDS: ZETIA 10 MG PO (07:52)
[2024-04-18] MEDS: MAGNESIUM OXIDE 500 MG PO (07:52)
[2024-04-18 07:53] LABS: Glucose - Point of Care 135 mg/dl (70-99)
[2024-04-18] MEDS: BACTROBAN 2% OINTMENT 1 APPLIC NASAL (07:53)
[2024-04-18] MEDS: LIDOCAINE 4% PATCH 1 PATCH TOPICAL (07:53)
[2024-04-18] MEDS: LOPRESSOR 25 MG PO (07:53)
--- NOTE | 2024-04-18 07:56 | W.PN.CD ---
Today's Communication / Plan
-
Start dapagliflozin 10 mg daily.
Start sacubitril-valsartan 24/26 mg BID.
Case management consult.
BMP in one week.
Discharge planning.
Impression / Plan
-
Impression/Plan: 78 y/o male with HTN/statin intolerance, asthma, prediabetes, JOSE ANGEL s/p carotid artery stent and CAD s/p prior PCI to the LCx (STEMI/cardiac arrest 2009), LAD (STEMI, 2006) and RCA (01/10/2021) admitted with chest pain and a high risk
stress test, found to have multivessel CAD.
#CAD/Abnormal stress test
-Long history of CAD (PCI to LAD for STEMI 2006, PCI to LCx for STEMI/cardiac arrest 2009, PCI to RCA for angina 01/10/2021).
-Stress test 04/09/[address] depressions in inferolateral leads and [address] elevation in aVR. No stress imaging obtained.
-S/P CABG 04/15/[address] England (in situ HO�LAD, SVG to high diagonal sequential to lower branch of the OM, SVG to RPLB).
-Preop LVEF 40% without specific RWMA, post LVEF 50% with no new regional wall motion abnormalities
-S/P LAAL (#35 Atriclip).
-CI 2.16 L/min/m2.
-Continue aspirin, amiodarone, clopidogrel, metoprolol.
-Statin intolerant. Continue ezetimibe 10 mg daily. He will need outpatient PCSK9i.
#Tonsillar mass
-Seen upon intubation, ENT to evaluate.
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
-Previous EF was 55-60% on 10/31/2023.
-EF of 40-45% on echo with mild to moderate MR.
-Cardizem CD changed to Toprol-XL for GDMT.
-Start dapagliflozin 10 mg daily and sacubitril/valsartan BID. Case management consult.
#HLD/Statin intolerance
-Chronic. Uncontrolled. LDL 127.
-Statin intolerant. Continue ezetimibe and consider PCSK9 inhibitors as an outpatient.
-Goal LDL < 55.
#JOSE ANGEL
-Chronic, stable.
-S/P carotid artery stent (Precise 9.0 x 30 self-expanding stent).
-Carotid duplex shows patent stent without restenosis.
-Previously on DAPT.
-Will need only single antiplatelet therapy post CABG.
#HTN
-Controlled.
-Resume medical therapy postoperatively.
#DM
-New diagnosis; hemoglobin A1c 6.7%.
-Monitor blood glucose; SSI.
Subjective/Interval History:
Chest tubes removed.
BP stable.
Weaned off of oxygen.
DATA:
Cardiac Catheterization, 04/10/2024:
CONCLUSIONS
1. Right dominant circulation with subtotal chronic occlusion of the RPDA and RPL with collaterals from the LAD, a 70% lesion in the lower branch of the major obtuse marginal, 40-50% narrowing in the ostium of the LAD, progressive, 50% in-stent
restenosis in the distal aspect of the mid LAD stent, an occlusive 50% lesion immediately proximal to the second diagonal (IFR = 0.87) and a tubular, 40% lesion in the distal LAD, proximal to the apex.
2. Normal filling pressures (LVEDP = 11 mmHg at 78.5 kg).
Intraoperative LAYNE, 04/15/2024:
CONCLUSIONS
Mild global LV dysfunction. Overall LVEF is approximately 40-45%.
Stage I Diastolic dysfunction.
Trace tricuspid regurgitation.
Trace pulmonic insufficiency.
Mild mitral regurgitation.
MR jet is central likely due to annular dilation.
Mild aortic sclerosis without stenosis.
Mid ascending aorta is mildly dilated measuring 3.8 cm at the level of the RPA.
Moderate sessile atheroma seen in the descending aorta and distal arch.
POST OPERATIVE FINDINGS
The patient underwent a CABG and PRESTON clipping. Postop rhythm remains sinus.
RV and LV function both appear more vigorous. Overall LVEF is now
approximately 55% with normal regional wall motion. The PRESTON is entirely
clipped with no residual lumen confirmed by 2D and color Doppler. TV and PV
function appear normal. AV function appears normal. Mild central MR is
unchanged from the preop level. MR vena contracta remains around 0.3 cm c/w
mild MR. Aortic scan is unchanged.
Physical Exam
Vital Signs/Labs
Vital Signs
Temp Pulse Resp BP Pulse Ox
36.9 C 72 18 140/75 94
04/18/24 04:00 04/18/24 06:00 04/18/24 04:00 04/18/24 05:19 04/18/24 03:42
04/16/24 04/17/24 04/18/24
11:59 11:59 11:59
Actual Weight 77.6 kg 78.9 kg 77.8 kg
04/18/24 05:17
04/18/24 05:17
PT 17.9 Sec (11.4-14.6) H 04/15/24 12:14
INR 1.49 04/15/24 12:14
APTT 31.9 Sec (23.4-35.0) 04/15/24 12:14
Magnesium 1.9 mg/dl (1.6-2.3) 04/18/24 05:17
Triglycerides 119 mg/dl (10-149) 04/10/24 03:46
LDL Cholesterol, Calc 127 mg/dl 04/10/24 03:46
VLDL Cholesterol, Calc 23 mg/dl (0-30) 04/10/24 03:46
HDL Cholesterol 43 mg/dl 04/10/24 03:46
Physical Exam
Constitutional: No acute distress and Comfortable
EENT: Anicteric and Moist mucous membranes
Cardiovascular: Rhythm & rate is regular, Pedal edema is absent, JVD pressure is normal, S1S2 is normal and Murmur/rub/gallop absent
Respiratory: Respiratory effort normal, Lungs clear to auscul., Wheeze Absent, Crackles Absent and Rhonchi Absent
GI: Soft, Distention absent, Flat, Non tender and Normal bowel sounds
Neuro/Psych: AO x 3
Data Reviewed
-
Date of Service: April 18, 2024
Medical Decision Making: Reviewed Test Results, Independent Historian Assessment, Test Interpretation and Review of Case with other Provider
EKG: Tracing Personally Visualized and interpreted and Report Reviewed by me
Echo: Tracing Personally Visualized and interpreted and Report Reviewed by me
X-Ray/CT/US/MRI/NUC/PET: Image Personally Visualized and interpreted and Report Reviewed by me
Medical Tests (PFT, Pathology etc): Image Personally Visualized and interpreted and Report Reviewed by me
Labs: Labs Reviewed by me
Old Records: Reviewed
--- NOTE | 2024-04-18 08:00 | PTCARENOTE ---
Pt assessed while he was sitting in the chair. Pt alert and oriented x3. Pt rates his sternal pain 7/10-see MAR. Denies shortness of breath and nausea. Ambulating in the room and abarca independently. NSR on tele with rates in the 80s. BP stable
111/73. Bilateral radial and DP pulses palpable. No edema noted. POX 95% on RA. Lungs diminished in the bases. IS encouraged-1500mL achieved. No cough noted. Abdomen soft, nontender. +BS. Pt reports no BM since surgery. Denies issues urinating.
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 Old chest tube sites covered-CDI. Right and Left SVG harvest sites approximated with skin glue, MARITA. Right IJ cordis intact. Right wrist PIV intact. See MAR for medication administration. See
worklist for complete nursing assessment. Plan of care reviewed and patient in agreement.
[2024-04-18] MEDS: FLUSH (NSS) 1 FLUSH IV (08:10)
[2024-04-18] MEDS: PACERONE 200 MG PO (08:10)
[2024-04-18] MEDS: TYLENOL 1000 MG PO (08:10)
[2024-04-18] MEDS: ENTRESTO 24 MG/26 MG 1 TAB PO (08:18)
[2024-04-18] MEDS: FARXIGA 10 MG PO (08:18)
[2024-04-18] MEDS: NSS IV (09:20)
[2024-04-18] MEDS: MILK OF MAGNESIA 30 ML PO (09:22)
--- NOTE | 2024-04-18 09:27 | W.DCSUMMARY ---
Discharge Summary
Discharge Data
Date of Admission: 04/09/24
Date of Discharge: 04/18/24
-
Pending Results: No
Hospital Course
Primary care physician: Marcial Barney
Outpatient smash piecer: Kyree Ordonez
Inpatient consultants: [facility] Cardiology
Procedures:
1. Coronary artery bypass grafting and left atrial appendage exclusion
Primary Diagnosis:
1. 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
Secondary Diagnoses:
1. History of STEMI's with multiple PCI's
2. Hypertension
3. Hyperlipidemia
4. Asthma
5. New diagnosis of yls-plazsbz-xuitjvijj diabetes mellitus type 2 (A1C)
6. 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
7. Ischemic cardiomyopathy (HFrEF 40%)
8. Gout with remote flare
9. carotid stenosis with history of R carotid artery stent (patent)
10. statin intolerance
11. incidental finding-unilateral large tonsil
12. incidental finding-Left lower lobe pulmonary nodule (3-4mm)
13. Acute surgical blood loss anemia�expected
HPI: Mr. Colorado is a 55-year-old male admitted 04/10/2024 s/p outpatient stress test was found to be abnormal and he was referred to the emergency room for full evaluation of his exertional chest pain, shortness of breath, nausea, and
dizziness.
Hospital course: Patient ruled out for CT (max troponin 0.032). Cardiac catheterization reported triple-vessel coronary disease and patient underwent CABG x 4 (HO>LAD, SVG> D1 & OM, SVG>RPL) and left atrial appendage exclusion with #35 mm clip
on 04/15/[address] José Manuel England.. Intraoperative LAYNE reported an ejection fraction of 45 to 50%. Patient received no intraoperative blood products and returned to CVICU on Levophed, insulin, and Precedex. Patient was extubated at 1620 on the
day of surgery. On postoperative day #1, the pleural chest tube was removed and aspirin/Plavix initiated. On postoperative day #2, temporary epicardial pacing wires were pulled and mediastinal chest tubes removed. Patient transitioned off insulin
to sliding scale insulin coverage. Anesthesia noted large unilateral tonsil during intubation and recommended outpatient ENT follow-up for possible removal. Preop CT of chest, abdomen, and pelvis reported an incidental finding of left lower lobe
3-4 mm nodule with suggested follow-up CT in 6 months for further evaluation. Patient should follow a diabetic controlled carb diet and have repeat A1c in 3 months to assess need for further intervention. Patient will continue on Zetia due to
statin intolerance. Entresto was initiated in the postop period due to ischemic cardiomyopathy. Prophylactic amiodarone was discontinued on discharge as patient had no arrhythmias. Chest x-ray on postoperative day #3 was unchanged and patient was
deemed stable for discharge.
Home medication changes:
see below
Discharge Plan
-
Patient Disposition: Home (Routine Discharge)
Discharge Diagnosis/Procedures: CABG/left atrial clip
Condition: Good
Diet: Low Cholesterol, Low Sodium and Diabetic, Carb Controlled
Activity: No strenuous activity
Driving Restrictions: Not until seen by your Dr
Bathing Restrictions: OK to Shower
Others Tests: CT chest in 6 months as follow up for incidental finding of LLL 3-4mm nodule
Other Services: Cardiac Rehab
Specialty Instructions: Weigh Daily- Call MD for wt gain/loss 3 lbs overnight/5 lbs in 1 week
Stand Alone Forms: DC Instructions- Cath/EP Lab
Referrals:
CT Transitional Care Nurse [Outside] (The Cardiothoracic Transitional Care Nurse will call you to set up a visit in 1-2 days.)
[facility] [address] Cardiac Rehab [Outside] - 05/22/24 1:00 pm
(Cardiac Rehab Orientation appointment is on May 22, 2024 (Th.) at 1:00 pm
The Cardiac Rehab gym is located on the first floor of the [facility].)
Rashmi Lopez CRNP [Specified Professional Personl] - 06/04/24 1:40 pm
Jak Gunn MD [Active] - in six weeks (Follow up lung nodule in LLL in a tobacco smoker)
Marcial Barney DO [Family Provider] - in one to two months
José Manuel England MD [Active] - 05/21/24 3:00 pm
Prescriptions:
New
ezetimibe 10 mg Tablet
10 mg PO DAILY Qty: 30 1RF
Entresto 24-26 mg Tablet
1 tab PO BID Qty: 60 1RF
acetaminophen 325 mg Tablet
650 mg PO Q4HPRN PRN (Reason: mild pain,headache,temp >101F ) Qty: 0 0RF
aspirin [Children's Aspirin] 81 mg Tablet,Chewable
81 mg PO DAILY Qty: 30 1RF
gabapentin 100 mg Capsule
100 mg PO TID Qty: 30 0RF
dapagliflozin propanediol 10 mg Tablet
10 mg PO DAILY Qty: 30 1RF
pantoprazole 40 mg Tablet,Delayed Release (Dr/Ec)
40 mg PO DAILY Qty: 30 1RF
tramadol 50 mg Tablet
50 mg PO Q6HPRN PRN (Reason: severe pain) Qty: 30 0RF
metoprolol succinate [Toprol XL] 50 mg tablet extended release 24 hr
50 mg PO DAILY Qty: 30 1RF
Continued
coenzyme Q10 [Co Q-10] 100 MG capsule
100 mg PO DAILY
turmeric root extract 500 MG capsule
500 mg PO DAILY
multivitamin Tablet
1 tab PO DAILY
colchicine 0.6 mg Tablet
0.6 mg PO DAILYPRN PRN (Reason: gout)
fluticasone propion-salmeterol [Advair Diskus] 100-50 mcg/dose Blister With Device
1 inh INHALATION BIDPRN PRN (Reason: SOB)
ascorbic acid (vitamin C) [Vitamin C] 1,000 mg Tablet
1,000 mg PO DAILY
clopidogrel 75 MG tablet
75 mg PO DAILY Qty: 90 5RF
omega 3-oqi-fws-fish oil [Fish Oil] 1,200 (144-216) mg Capsule
1 cap PO DAILY Qty: 0 0RF
Discontinued
nitroglycerin 0.4 MG tablet, sublingual
0.4 mg sublingual [id number] PRN (Reason: chest pain) Qty: 25 5RF
aspirin 325 mg Tablet
325 mg PO DAILY
diltiazem HCl 180 mg capsule,extended release 24hr
180 mg PO DAILY
irbesartan 150 mg tablet
150 mg PO DAILY
Discharge Orders:
Discharge Patient (As Directed); Ordered 04/18/24
Ordered By: Irma Cabrera
Care Plan Goals
Care Plan Goals:
Problem: Readiness for enhanced knowledge related to diagnosis and treatment plan
Goal: Understand your diagnosis and treatment plan needs, including medications if applicable.
Instructions: Know your diagnosis, underlying causes and treatment plan options, including medications if applicable. Consult with your health care team to learn about your diagnosis and treatment plan, including medications if applicable.
Discharge Date and Time
Print Language: ALBANIAN
--- NOTE | 2024-04-18 10:11 | CM ---
Priced Farxiga and Entresto thru patient's RX plan.
Estimated cost would be $47/month or $94/3 month supply.
TT to MD to update.
Coupons for free 30 d supply provided.
Met w/ patient at bedside. He is anticipating DC today, offers no concerns or needs.
DC plan is for home w/ CT Transitional Care RN.
--- NOTE | 2024-04-18 10:45 | PTCARENOTE ---
Right IJ cordis d/c prior to discharge. CT dressing d/c, open, not approximated. Education provided regarding showering, pt acknowledged teaching. Assisted into the shower. Vitals obtained prior to d/c.
--- NOTE | 2024-04-18 11:43 | PTCARENOTE ---
Discharge order received. Instructions reviewed with patient and . All questions answered.
== END 2024-04-18 12:18 | disposition home or self-care (01) | DRG 233 ==
LOC: CVICU 16:40
PROVIDERS: Anesthesiology; Clinical Nurse Specialist Acute Care; Emergency Medicine; Internal Medicine Cardiovascular Disease; Nurse Practitioner Adult Health; Nurse Practitioner Gerontology; Physician Assistant Medical; ADMITTING PHYSICIAN Internal Medicine Cardiovascular Disease; ATTENDING PHYSICIAN Thoracic Surgery (Cardiothoracic Vascular Surgery); CONSULT PHYSICIAN Internal Medicine Critical Care Medicine; EMERGENCY PHYSICIAN Emergency Medicine; FAMILY PHYSICIAN Family Medicine
PROC: 4A033BC Measurement of Arterial Pressure, Coronary, Percutaneous Approach (ICD-10-PCS; 2024-04-10)
PROC: 4A023N7 Measurement of Cardiac Sampling and Pressure, Left Heart, Percutaneous Approach (ICD-10-PCS; 2024-04-10)
PROC: B2111ZZ Fluoroscopy of Multiple Coronary Arteries using Low Osmolar Contrast (ICD-10-PCS; 2024-04-10)
PROC: 5A1221Z Performance of Cardiac Output, Continuous (ICD-10-PCS; 2024-04-15)
PROC: 02100Z9 Bypass Coronary Artery, One Artery from Left Internal Mammary, Open Approach (ICD-10-PCS; 2024-04-15)
PROC: B24BZZ4 Ultrasonography of Heart with Aorta, Transesophageal (ICD-10-PCS; 2024-04-15)
PROC: 021209W Bypass Coronary Artery, Three Arteries from Aorta with Autologous Venous Tissue, Open Approach (ICD-10-PCS; 2024-04-15)
PROC: 06BQ4ZZ Excision of Left Saphenous Vein, Percutaneous Endoscopic Approach (ICD-10-PCS; 2024-04-15)
PROC: 02L70CK Occlusion of Left Atrial Appendage with Extraluminal Device, Open Approach (ICD-10-PCS; 2024-04-15)
DX: I25.118 Atherosclerotic heart disease of native coronary artery with other forms of angina pectoris (principal); I50.23 Acute on chronic systolic (congestive) heart failure; T82.855A Stenosis of coronary artery stent, initial encounter; D62 Acute posthemorrhagic anemia; I13.0 Hypertensive heart and chronic kidney disease with heart failure and stage 1 through stage 4 chronic kidney disease, or unspecified chronic kidney disease; J98.11 Atelectasis; E78.00 Pure hypercholesterolemia, unspecified; J45.909 Unspecified asthma, uncomplicated; I34.0 Nonrheumatic mitral (valve) insufficiency; I65.21 Occlusion and stenosis of right carotid artery; F17.290 Nicotine dependence, other tobacco product, uncomplicated; M10.9 Gout, unspecified; Y83.1 Surgical operation with implant of artificial internal device as the cause of abnormal reaction of the patient, or of later complication, without mention of misadventure at the time of the procedure; I25.5 Ischemic cardiomyopathy; R91.1 Solitary pulmonary nodule; E11.22 Type 2 diabetes mellitus with diabetic chronic kidney disease; J35.1 Hypertrophy of tonsils; N18.31 Chronic kidney disease, stage 3a; I25.2 Old myocardial infarction; Z79.02 Long term (current) use of antithrombotics/antiplatelets; Z79.82 Long term (current) use of aspirin; Z79.899 Other long term (current) drug therapy; Z86.74 Personal history of sudden cardiac arrest; Z95.820 Peripheral vascular angioplasty status with implants and grafts; Z82.49 Family history of ischemic heart disease and other diseases of the circulatory system; Z86.16 Personal history of COVID-19
CPT/HCPCS: 71045; 71046; 71250; 74176; 78452; 80048; 80053; 80061; 81003; 81015; 82248; 82330; 82565; 82805; 82810; 82947; 82962; 83036; 83735; 84132; 84302; 84484; 84520; 85014; 85018; 85025; 85027; 85049; 85347; 85610; 85730; 86850; 86900; 86901; 86920; 93005; 93017; 93306; 93312; 93320; 93325; 93458; 93571; 94002; 96365; 96366; 99285; A9500; C1769; C1894; J2916; P9045; P9047; Q9967

== ENCOUNTER → 2024-04-30 15:38 | Outpatient (REF) | payer OTHER, SELFPAY | LOC: HWRAD 15:38 | PROVIDERS: ATTENDING PHYSICIAN Family Medicine; REFERRING PHYSICIAN Internal Medicine Cardiovascular Disease | DX: R05.1 Acute cough (principal) | CPT/HCPCS: 71046 ==

== ENCOUNTER → 2024-05-02 10:55 | Outpatient (REF) | payer OTHER, SELFPAY | LOC: RCS 10:55 | PROVIDERS: ATTENDING PHYSICIAN Internal Medicine Cardiovascular Disease | DX: I25.2 Old myocardial infarction (principal) | CPT/HCPCS: 93005 ==

== ENCOUNTER 2024-05-02 20:47 | Inpatient (IN) | payer OTHER, SELFPAY ==
[2024-05-02] VITALS (7 sets, daily range): BP systolic 124–151; BP diastolic 67–81; BMI 25.9; BMI 26.1
[2024-05-02 18:22] LABS: % Basophils 1.2 % (0-2); % Eosinophils 3.8 % (0-6); % Immature Granulocytes 0.9 % (0-0.5); % Lymphocytes 9.4 % (20.5-51.1); % Monocytes 10.9 % (1.7-9.3); % Neutrophils 73.8 % (42.2-75.2); Absolute Basophils 0.2 10^3/uL (0-0.2); Absolute Eosinophils 0.5 10^3/uL (0-0.7); Absolute Immature Granulocytes 0.1 10^3/uL (0-0.05); Absolute Lymphocytes 1.2 10^3/uL (1.2-3.4); Absolute Monocytes 1.4 10^3/uL (0.1-0.6); Absolute Neutrophils 9.2 10^3/uL (1.4-6.5); Hematocrit 33.2 % (39.0-52.0); Hemoglobin 11.4 g/dL (13.0-18.0); Mean Corp Hgb Conc. 34.3 g/dL (33.0-37.0); Mean Corpuscular Hgb 28.8 pg (27.0-31.0); Mean Corpuscular Volume 83.8 fL (80.0-94.0); Mean Platelet Volume 9.3 fL (7.4-10.4); Nucleated Red Blood Cells % 0 % (-); Platelet Count 532 10^3/uL (130-400); Red Blood Cell Count 3.96 10^6/uL (4.70-6.10); Red Cell Dist. Width 15.4 % (11.5-14.5); White Blood Cell Count 12.5 10^3/uL (4.8-10.8)
[2024-05-02 18:34] LABS: INR 1.19; PT 14.9 Sec (11.4-14.6)
[2024-05-02 18:35] LABS: APTT 35.1 Sec (23.4-35.0)
[2024-05-02 18:36] LABS: ALT (SGPT) 51 U/L (0-50); AST (SGOT) 37 U/L (17-59); Albumin 4.2 g/dl (3.5-5.0); Alkaline Phosphatase 153 U/L (38-126); Blood Urea Nitrogen 27 mg/dl (9-20); Calcium 10.5 mg/dl (8.4-10.2); Carbon Dioxide 17 mmol/L (22-30); Chloride 105 mmol/L (98-107); Estimated Creatinine Clearance 34 ml/min; Glucose 111 mg/dl (70-99); Potassium 4.5 mmol/L (3.5-5.1); Sodium 136 mmol/L (135-145); Total Bilirubin 0.6 mg/dl (0.2-1.3); Total Protein 7.2 g/dl (6.3-8.2); eGFR 43.29
[2024-05-02 18:47] LABS: Troponin I 0.027 ng/ml
--- NOTE | 2024-05-02 19:12 | ED.GENMED ---
History of Present Illness
General
Chief Complaint: Breathing Problem
Source: patient, records, spouse and previous hospital records
Exam Limitations: none
Time Seen by Provider: 05/02/24 19:12
Nursing documentation reviewed up to this point in time: agreed with
History of Present Illness
History of Present Illness:
78-year-old male history of CAD, status post stenting submitted a few weeks ago found to have anatomy requiring bypass surgery which he underwent as an inpatient by Dr. England recovered well discharged after few days, on many new meds, including
beta-yury, does have history of asthma, smokes cigars, 4 to 5 days ago patient developed a cough, shortness of breath, outpatient physicians and stopped his beta-yury due to cough developed some tachycardia more outpatient changes to his
meds, started on diltiazem has persistent cough persistent shortness of breath persistent tachycardia no calf pain no hemoptysis no fever chills, no nausea or vomiting does not feel 'sick' no sick contacts but is coughing tells me he does feel like
his asthma to some degree
Past History
Past History
ED Past Medical History: CAD and HTN; Negative NIDDM
ED Past Surgical History: Cardiac
Social History
Tobacco: Smoker
Alcohol: None
Drug: None
Personal:
Living: with family
Employment: Retired
Review of Systems
Review of Systems
All Other Systems: Not applicable
Constitutional: Denies fever, fatigue or chills
EENT: Reports no symptoms; Denies sore throat
Respiratory: Reports cough and trouble breathing
Cardiac: Reports palpitations
ABD/GI: Reports no symptoms
: Reports no symptoms
Musculoskeletal: Reports no symptoms
Skin: Reports no symptoms
Neurological: Reports no symptoms
Endocrine: Reports no symptoms
Hematologic/Lymphatic: Reports no symptoms
Psychiatric: Reports no symptoms
Phy Exam
Physical Exam
Physical Exam:
Physical Exam
General: Nontoxic male coughing
Neck: Lips are moist
Heart: Tachycardia
Lungs: Expiratory wheeze faint at the base
Abdomen: Not
Neuro: alert and oriented. no focal neurological deficits
Skin: no rash
Psychiatric: well kept. interactive and cooperative
Extremities: no edema. no calf tenderness. Graft site clean dry intact in the left thigh to calf
Scores
Heart Failure Risk
Heart Failure Risk Score: Not Applicable
Course
Orders/Labs/Results
Orders:
Orders
05/02/24 Dinner
Cholesterol Lowering
At Your Request: Full Participation
Fluid Restriction: 1440 mL/day (48 oz)
Cholesterol Lowering: Sodium, 2 Gram
1800 nevaeh/15 CHO Diabetic
05/02/24 17:30
Electrocardiogram (*1) Urgent
Reason for Study: Shortness of Breath
05/02/24 18:17
Complete Blood Count/With Diff Urgent
Comprehensive Metabolic Panel Urgent
NT-proBNP Urgent
Comment: ADD ON
Protime/PTT Urgent
Troponin I Urgent
05/02/24 19:12
Add On- LAB Urgent
Tests Added?: pBNP
CR Chest - 2 Views Urgent
Comment:
Reason For Exam: sob
05/02/24 19:41
Levalbuterol [Xopenex 0.63 mg Inhalant Solution] 0.63 mg INH R NOW STA
05/02/24 20:00
0.9% Sodium Chloride 250 ml [Nss] 250 ml IV BOLUS
05/02/24 20:34
Pantoprazole [Protonix] 40 mg PO NOW STA
Prednisone [Deltasone] 40 mg PO NOW STA
05/02/24 20:35
Admit/Transfer Patient As Directed
Co-Sign Provider:
Level of Care: Inpatient admission
Assign to:: Telemetry
Physician / Group: veldanda, udaybhanu
Diagnosis: cough 2/2 to medication vs asthma exac, jessica
Reason for Telemetry: Arrhythmia
Date to Stop Telemetry: 05/05/24
Time to Stop Telemetry: 11:00
Reason for Hospitalization: cough 2/2 to medication vs asthma exac, jessica
Expected length of stay greater than two midnights?: Yes
ELOS- Estimated Length of Stay in days: 4
I certify the patient meets the requirements for IP care: Yes
Code Status As Directed
Resuscitation Status: Full Code
05/02/24 21:00
0.9% Sodium Chloride 500 ml [Nss] 500 ml IV 60 mls/hr
05/02/24 21:36
Acetaminophen [Tylenol] 650 mg PO Q4HPRN PRN
Colchicine 0.6 mg PO DAILYPRN PRN
cyclobenzaprine 5 mg PO TIDPRN PRN
05/02/24 21:36
Activity As Directed
Activity Level: As Tolerated
Intake/ Output As Directed
Frequency: Per unit guidelines
Vital Signs As Directed
Frequency: Per unit guidelines
Weight As Directed
Frequency: Daily
Pulse Ox/spot Check [RESP] Routine
Quantity: 1
Ot Eval And Treat Routine
Pt Eval And Treat Routine
Activity Level: As Tolerated
DX Deep Vein Thrombosis Video Routine
05/02/24 21:46
Guaifenesin Solution [Robitussin] 20 mg PO Q4HPRN PRN
05/02/24 22:00
Diltiazem Extended Release [Cardizem Cd] 180 mg PO HS
05/02/24 22:21
COVID-19 Antigen Urgent
Source: Nasal Swab
05/03/24 06:00
Complete Blood Count/With Diff IN AM
Comprehensive Metabolic Panel IN AM
05/03/24 08:00
Ascorbic Acid [Vitamin C] 1,000 mg PO DAILY
Aspirin Chewable [Low Strength Aspirin] 81 mg PO DAILY
Clopidogrel Bisulfate [Plavix] 75 mg PO DAILY
Cyanocobalamin [Vitamin B-12] 1,000 mcg PO DAILY
Dapagliflozin [Farxiga] 10 mg PO DAILY
Ezetimibe [Zetia] 10 mg PO DAILY
Fluticasone/Salmeterol 45/21 [Advair Hfa 45/21 Mcg Inhaler] 2 puff INH R BID
Heparin 5,000 units SC Q12
Metoprolol Xl [Toprol Xl] 50 mg PO DAILY
Multivitamin [Theragran] 1 tablet PO DAILY
Pantoprazole [Protonix] 40 mg PO DAILY
Prednisone [Deltasone] 40 mg PO DAILY
coenzyme Q10 [Co Q-10] 100 mg PO DAILY
omega 9-tlo-dbj-fish oil [Fish Oil] 1 cap PO DAILY
05/04/24 06:00
Complete Blood Count/With Diff IN AM
Comprehensive Metabolic Panel IN AM
05/05/24 06:00
Complete Blood Count/With Diff IN AM
Comprehensive Metabolic Panel IN AM
05/05/24 11:00
DC Protocol for Telemetry ONCE
Abnormal Lab Results
05/02/24
18:17
WBC 12.5 H 10^3/uL
(4.8-10.8)
RBC 3.96 L 10^6/uL
(4.70-6.10)
Hgb 11.4 L g/dL
(13.0-18.0)
Hct 33.2 L %
(39.0-52.0)
RDW 15.4 H %
(11.5-14.5)
Plt Count 532 H 10^3/uL
(130-400)
Abs Immat Gran (auto) 0.1 H 10^3/uL
(0-0.05)
Absolute Neuts (auto) 9.2 H 10^3/uL
(1.4-6.5)
Absolute Monos (auto) 1.4 H 10^3/uL
(0.1-0.6)
Immature Gran % 0.9 H %
(0-0.5)
Lymphocytes % 9.4 L %
(20.5-51.1)
Monocytes % 10.9 H %
(1.7-9.3)
PT 14.9 H Sec
(11.4-14.6)
APTT 35.1 H Sec
(23.4-35.0)
Carbon Dioxide 17 L mmol/L
(22-30)
BUN 27 H mg/dl
(9-20)
Creatinine 1.6 H mg/dL
(0.7-1.3)
Glucose 111 H mg/dl
(70-99)
Calcium 10.5 H mg/dl
(8.4-10.2)
ALT 51 H U/L
(0-50)
Alkaline Phosphatase 153 H U/L
(38-126)
05/02/24 18:17
05/02/24 18:17
Vital Signs
Initial and Last Documented VS:
Initial Vital Signs
Temp Pulse Resp BP Pulse Ox
99.4 F 110 18 151/81 99
05/02/24 17:32 05/02/24 17:32 05/02/24 17:32 05/02/24 17:32 05/02/24 17:32
Last Documented Vital Signs
Temp Pulse Resp BP Pulse Ox
98.9 F 103 20 124/78 96
05/02/24 21:48 05/02/24 22:24 05/02/24 21:48 05/02/24 22:24 05/02/24 21:48
MDM/Problems Addressed
Differential Diagnosis Includes:
Medication effect, heart failure, phrenic nerve irritation after surgery, URI asthma anemia occult fever conceivably PE
MDM/Problems Addressed:
Cough tachycardia
Chronic conditions affecting care: CAD
Acute Exacerbation and/or Progression of Chronic Illness: CAD
*Radiology
Radiology exam reviewed: preliminary read by ED provider and radiology read reviewed
*Pulse Oximetry
Patient hypoxic: no
*EKG
Interpreted by ED Provider?: Yes
Interpretation: abnormal
Comparison EKG: no comparison EKG present
Heart Rate: 110
Rate: tachycardiac
Rhythm: sinus
Ischemia: non-specific ST changes
*[employer] Interpretation
Rate: tachycardiac
Interpretation: abnormal
Heart Rate: 110
Rhythm: sinus
*Critical Care Note
Total Time (30-74mins, 75-104mins- exclusive of procedures): Not Applicable
Update Note
Update Note:
Update labs noted chest x-ray noted looks to have JESSICA, admits that she has been managing his meds stopping anxiety and beta-yury based on what she is read, will start nss give Xopenex, believe he would benefit from admission is
understandably pretty overwhelmed
ED Attending Note
-
Portions of this chart may have been created with voice recognition software.� Occasional wrong word or��sound alike� substitutions may have occurred due to the inherent limitations of voice recognition software.
Discharge Plan
Departure
Patient Disposition: Admit
Date of Disposition: 05/02/24
Time of Disposition: 20:15
Admit to: Telemetry
Presentation/result/management discussed w/ accepting MD/DO: Hospitalist
Patient with high blood pressure during this ER visit?: No
Condition: Fair
Discharge Problem:
JESSICA (acute kidney injury), Tachycardia, Cough, Asthma
Interventions
Interventions:
*Risk Screen - Suicide Last Done: 05/02/24 22:41
*General Assessment Last Done: 05/02/24 17:32
*Neglect/Abuse Screening Last Done: 05/02/24 18:18
ED- Fall Risk Assessment Last Done: 05/02/24 18:18
*ED COVID-19 Vaccine History Last Done: 05/02/24 22:41
*Nursing Disposition Last Done: 05/02/24 21:51
ED- Cardiac Assessment Last Done: 05/02/24 18:18
ED- Pulmonary Assessment Last Done: 05/02/24 18:18
Discharge Date and Time
Discharge Date/Time: 05/02/24 21:52
[2024-05-02] MEDS: XOPENEX 0.63 MG INHALANT SOLUTION 0.630000000000000004 MG INH (19:53)
[2024-05-02 19:56] LABS: NT-proBNP 167 pg/ml
--- NOTE | 2024-05-02 20:13 | HPS.HSE ---
Family Physician
-
Family Physician: Marcial Barney
Chief Complaint
-
Cough, shortness of breath, tachycardia
History of Present Illness
78-year-old male who complains of a cough with shortness of breath over the past 4 to 5 days his reportedly stopped his beta-yury due to a cough he then developed tachycardia and was started on diltiazem with persistent tachycardia and
cough. He has past medical history of asthma, smokes cigars, CAD status post CABG and left atrial appendage exclusion, history of STEMI's with multiple PCI's, HTN, HLD, new diagnosis DM 2 04/09/2024 visit, mild to moderate mitral valve insufficiency
secondary to ischemic cardiomyopathy, ischemic cardiomyopathy heart failure ejection fraction 40%, gout, carotid stenosis right carotid artery stent patent, statin intolerance, left lower lobe pulmonary nodule 3 to 4 mm incidental unilateral large
tonsil
Medical History
Past Medical History
Past Medical History: Reports Asthma, CAD, HTN and Hypercholesterolemia
Past Surgical History: Reports Other
Additional Past Surgical History:
CABG x 4 HO> LAD, SVG> D1 and OM, SVG> R PL and left atrial appendage exclusion with number 35 mm clip on 04/15/[address] England
-Long history of CAD (PCI to LAD for STEMI 2006, PCI to LCx for STEMI/cardiac arrest 2009, PCI to RCA for angina 01/10/2021).
Social History
Tobacco: Smoker (Cigar)
Drug: None
Personal:
Living: With Family
Employment: Retired
Family History
Family History: Not pertinent
Allergies / Home Medications
Allergies reflects when Allergies were last updated in [facility].
Home Medications with original date entered in [facility]
Allergy/Medication List:
Allergies
Allergy/AdvReac Type Severity Reaction Status Date / Time
lisinopril Allergy Intermediate Pharmacy Verified 05/02/24 20:31
to Review
atorvastatin Allergy 'tore all Verified 05/02/24 17:37
my
ligaments'
[id number]-PfC Reductase Allergy myalgias Verified 05/02/24 17:37
Inhibitor and torn
ligaments
Home Medications
coenzyme Q10 100 mg capsule (Co Q-10) 100 mg PO DAILY 01/10/21
turmeric root extract 500 mg capsule 500 mg PO DAILY 01/10/21
ascorbic acid (vitamin C) 1,000 mg tablet (Vitamin C) 1,000 mg PO DAILY 11/23/23
colchicine 0.6 mg tablet 0.6 mg PO DAILYPRN PRN gout 11/23/23
fluticasone 100 mcg-salmeterol 50 mcg/dose blistr powdr for inhalation (Advair Diskus) 1 inh inhalation R BID 11/23/23
multivitamin 1 tab PO DAILY 11/23/23
acetaminophen 325 mg tablet 650 mg (2 x 325 mg) PO Q4HPRN PRN mild pain,headache,temp >101F #0 tabs 04/18/24
aspirin 81 mg chewable tablet (Children's Aspirin) 81 mg PO DAILY Blood clot prevention/tx #30 tabs 04/18/24
clopidogrel 75 mg tablet 75 mg PO DAILY Blood clot prevention/tx #90 tabs 04/18/24
dapagliflozin propanediol 10 mg tablet 10 mg PO DAILY Heart Failure #30 tabs 04/18/24
ezetimibe 10 mg tablet 10 mg PO DAILY High cholesterol #30 tabs 04/18/24
metoprolol succinate 50 mg tablet,extended release 24 hr (Toprol XL) 50 mg PO DAILY Heart disease/condition #30 tabs 04/18/24
omega 1-kix-fho-fish oil 1,200 mg (144 mg-216 mg) capsule (Fish Oil) 1 cap PO DAILY Supplement #0 caps 04/18/24
pantoprazole 40 mg tablet,delayed release 40 mg PO DAILY GI prophylaxis while on Plavix #30 tabs 04/18/24
sacubitril 24 mg-valsartan 26 mg tablet (Entresto) 1 tab PO BID Heart Failure #60 tabs 04/18/24
Robitussin 20 ml PO Q4HPRN PRN cough 05/02/24
cyanocobalamin (vitamin B-12) 1,000 mcg tablet 1,000 mcg PO DAILY 05/02/24
cyclobenzaprine 5 mg tablet 5 mg PO TIDPRN PRN muscle spasms 05/02/24
diltiazem HCl 180 mg capsule,extended release 24 hr 180 mg PO HS 05/02/24
Review of Systems
-
History Source: Patient and Family ( at bedside)
A 12 point ROS was completed and negative except as noted: Yes
Constitutional: Denies Fever, Fatigue or Chills
EENT: Reports Other (Postnasal drip x 1 day); Denies Sore Throat or Runny Nose
Respiratory: Reports Cough (Nonproductive); Denies Trouble Breathing
Cardiac: Denies Chest Pain, Diaphoresis, Palpitations or Syncope
Abdomen/GI: Denies Abdominal Pain, Nausea, Vomiting, Diarrhea, Constipated, Bloody Stools or Black Stools
: Denies Dysuria, Frequency, Flank Pain, Incontinence, Difficulty Voiding or Urgency
Musculoskeletal: Denies Joint Pain or Edema
Skin: Denies Itching
Neurological: Denies Dizzy, Headache or Weakness
Endocrine: Reports No Symptoms
Hematologic/Lymphatic: Reports No Symptoms
Psych: Reports Calm
Physical Exam
Vital Signs
Vital Signs
Temp Pulse Resp BP Pulse Ox
99.4 F 104 19 136/69 97
05/02/24 17:32 05/02/24 18:00 05/02/24 18:00 05/02/24 18:00 05/02/24 18:00
Physical Exam
General: Comfortable and Conversant; No Pain, Fever or Chills
HEENT: NormoCephalic, Anicteric, Moist mucous membranes, PERRLA, [place] Conjunctivae and No Ptosis
Respiratory: Clear; No Wheezes, Rales or Rhonchi
Cardiac: S1/S2, Regular Rhythm and Other (Sternal incision intact with scabbing); No Murmur, Rub, Gallop or Peripheral Edema
GI: Soft, Non Tender, Non Distended and Normal Bowel Sounds
Rectal: Deferred by Provider
Genito-urinary: Deferred by me
Musculoskeletal: No Clubbing, No Cyanosis and No Edema
Skin: Warm and Dry; No Rash
Neuro: AO x 3, No Motor Deficits, Nonfocal/grossly intact, Cranial Nerves Intact and No Sensory Deficits; No Slurred Speech, Facial Droop or Tremors
Psych: Calm
Laboratory Results
-
05/02/24 18:17
05/02/24 18:17
Laboratory Results
PT 14.9 Sec (11.4-14.6) H 05/02/24 18:17
INR 1.19 05/02/24 18:17
APTT 35.1 Sec (23.4-35.0) H 05/02/24 18:17
Total Bilirubin 0.6 mg/dl (0.2-1.3) 05/02/24 18:17
AST 37 U/L (17-59) 05/02/24 18:17
ALT 51 U/L (0-50) H 05/02/24 18:17
Alkaline Phosphatase 153 U/L (38-126) H 05/02/24 18:17
Troponin I 0.027 ng/ml 05/02/24 18:17
Data Reviewed
-
Diagnostic Radiology: Report Reviewed by me
Lab Data: Labs Reviewed by me
Impression/Plan
-
Impression/plan:
Admit to telemetry
#Leukocytosis persistent cough concern for medication induced versus asthma
WBC 12.5, No shift, 99.4 F
Continue Advair
-Check COVID swab
-Continue Robitussin
HOLD Entresto due to possible cough-history of lisinopril cough during 2009 visit
-Add prednisone 40 mg daily
-DuoNebs scheduled and as needed
-Resume patient's Protonix 40 mg daily
CXR: No acute cardiopulmonary process
#JESSICA
-Creat 1.6 prior 1.1
-NSS 60 cc an hour x 500 cc only
#CAD/multiple cardiac stents
#CABG x 4 HO> LAD, SVG> D1 and OM, SVG> R PL and left atrial appendage exclusion with number 35 mm clip on 04/15/[address] England
-Long history of CAD (PCI to LAD for STEMI 2006, PCI to LCx for STEMI/cardiac arrest 2009, PCI to RCA for angina 01/10/2021).
Hx cardiac arrest 2009
-Continue diltiazem as patient stopped his prior beta-yury due to cough
-Continue Plavix, aspirin, Zetia 10 mg daily
-Consult Cardiology
#Ischemic cardiomyopathy EF 40%
-Continue Farxiga 10 mg daily
-Hold Entresto 1 tab p.o. twice daily(these meds are new from previous visit_
#Carotid artery stenosis
Status post carotid artery stent
#HTN�benign
Continue diltiazem 180 mg daily, Toprol XL 50 mg daily
#DM2
New diagnosis 04/09/2024 with A1c 6.7%
-Continue Farxiga and will give 1800 ADA low-fat diet
Other PMH:lLeft lower lobe pulmonary nodule 3 to 4 mm
incidental unilateral large tonsil found on intubation-Was recommended to follow-up with ENT
DVT prophylaxis
Continue subcu heparin
Full code
--- NOTE | 2024-05-02 20:31 | W.PN.UPDATE ---
Update Note
Progress Note Update
This is an addendum to the H&P written by BLANE Duron on 05/02/2024. Patient seen and examined independently with COMPUTER BUILDER.
55-year-old male past medical history of coronary artery disease with history of multiple STEMI's/PCI's, ischemic cardiomyopathy, mild to moderate mitral insufficiency, hypertension, hyperlipidemia, asthma, diabetes, gout, carotid stenosis with
history of right carotid stent, who recently underwent CABG on 04/16 presenting with cough, shortness of breath and tachycardia. At the end of the previous discharge patient was started on various new medications including Zetia, Entresto, metoprolol.
Patient's spouse stopped metoprolol due to cough and patient was started on diltiazem.
No wheezing on examination. Tachycardic on examination.
Labs show leukocytosis, stable blood loss anemia, acute kidney injury with creatinine 1.6. Chest x-ray shows no acute cardiopulmonary process. EKG shows sinus tachycardia with heart rate of 102 occasional PVCs.
Possible patient is likely having asthma exacerbation triggered by metoprolol/Entresto. Will start DuoNebs every 6 hours, prednisone 40 mg.
Very gentle IV fluids due to JESSICA which is likely prerenal. Hold Entresto. Cardiology consulted.
[2024-05-02] MEDS: NSS 250 IV (20:33)
[2024-05-02] MEDS: PROTONIX 40 MG PO (20:55)
[2024-05-02] MEDS: DELTASONE 40 MG PO (20:55)
[2024-05-02] MEDS: CARDIZEM CD 180 MG PO (22:24)
[2024-05-02] MEDS: NSS 500 IV (22:24)
[2024-05-02 22:44] LABS: COVID-19 Antigen Negative (Negative)
[2024-05-02] MEDS: ROBITUSSIN 20 MG PO (23:25)
[2024-05-02] MEDS: TYLENOL 650 MG PO (23:28)
[2024-05-03] MEDS: ROBITUSSIN 380 MG PO (00:52)
--- NOTE | 2024-05-03 01:49 | PTCARENOTE ---
Pt admitted to the unit from ED. Pt ambulated self to bed. AAXO3. Pt denies SOB and difficulty breathing. Pt oriented to room with call quevedo in reach. Plan of care ongoing.
[2024-05-03 03:29] VITALS: BP 108/66
[2024-05-03 06:00] VITALS: BMI 25.8
[2024-05-03 07:00] VITALS: BP 122/71
[2024-05-03 07:41] LABS: % Basophils 0.5 % (0-2); % Immature Granulocytes 0.8 % (0-0.5); % Lymphocytes 9.4 % (20.5-51.1); % Monocytes 2.4 % (1.7-9.3); % Neutrophils 86.9 % (42.2-75.2); Absolute Basophils 0.1 10^3/uL (0-0.2); Absolute Immature Granulocytes 0.1 10^3/uL (0-0.05); Absolute Monocytes 0.3 10^3/uL (0.1-0.6); Absolute Neutrophils 9.4 10^3/uL (1.4-6.5); Hematocrit 32.3 % (39.0-52.0); Hemoglobin 10.9 g/dL (13.0-18.0); Mean Corp Hgb Conc. 33.7 g/dL (33.0-37.0); Mean Corpuscular Hgb 28.3 pg (27.0-31.0); Mean Corpuscular Volume 83.9 fL (80.0-94.0); Mean Platelet Volume 9.4 fL (7.4-10.4); Nucleated Red Blood Cells % 0 % (-); Platelet Count 517 10^3/uL (130-400); Red Blood Cell Count 3.85 10^6/uL (4.70-6.10); Red Cell Dist. Width 15.5 % (11.5-14.5); White Blood Cell Count 10.8 10^3/uL (4.8-10.8)
--- NOTE | 2024-05-03 07:45 | CON.CAR ---
Addendum entered and electronically signed by Marcial Navarrete MD 05/03/24 13:47:
I saw and examined the patient.
The PROFESSOR OF BUSINESS's note was reviewed and I agree with the note.
78-year-old male who underwent coronary artery bypass grafting on 04/15/2024 and has had issues with persistent coughing. There was also concerned because his heart rate was elevated at home up to 115 bpm. He has a history of coronary artery
disease, coronary artery bypass coming 04/15/2024 ischemic cardiomyopathy which was 40 to 45% preoperatively, hypertension, hypercholesterolemia, statin intolerance and asthma . Patient reported that he had some coughing right after he got home which
progressively got worse. No fever and not having sputum production. Metoprolol was stopped a couple days prior to admission but cough persisted. Of the new medication was Entresto. Patient has had previously had cough with AILYN inhibitor.
Patient appears euvolemic with no evidence of heart failure on exam. Treated for possible asthma exacerbation and has received steroids and nebs. Patient feels significantly better and is hoping to go home. He had an echocardiogram today which
showed ejection fraction of 50 to 55% which is improved from preoperatively
-Continue treatment of asthma/cough as directed by primary team. Steroids and inhalers as recommended by primary team
-Would keep off beta-yury. There was a question of whether he had intolerance in the past and with most recent issues would remain off metoprolol.
-With recent rise in renal function would remain off of Entresto.. EF now 50 to 55% and patient may not require Entresto. Need for ARB or ARNI can be reassessed as outpatient.
-Can continue with diltiazem at current dosing. Patient has tolerated in the past. Although not ideal with cardiomyopathy and prior ejection fraction of 40%. With all the above issues and with EF now being 50 to 50% would be reasonable to
continue at this time
-Continue to monitor blood pressure as outpatient with the medication changes noted above
-Although tachycardia was a concern on presentation it appears to be sinus tachycardia that was related to his respiratory issues. Heart rate has now improved and echocardiogram shows preserved left ventricular function. No evidence of arrhythmia.
-Continue to monitor renal function which is improving. Would recommend follow-up labs as an outpatient later this week
-Overall stable from a cardiology standpoint. Stable for discharge from a cardiology standpoint provided primary team feels his pulmonary issues are adequately controlled.
Original Note:
Consultation
Consultation Request
Date/Time Consultation Requested: 05/02/242199
Date/Time Consultation Performed: 05/03/24 0805
Requesting Provider: Juani Duron NP
Performing Provider: Anne Marie GONZALEZ for Dr. Navarrete
Reason for Consultation: SOB, cough, tachycardia; recent CABG
Medical History
-
Chief Complaint: SOB, cough, tachycardia
History of Present Illness:
78 y/o male with hypertension, dyslipidemia with statin intolerance, asthma, DM, JOSE ANGEL s/p carotid stent, and CAD with hx WA's and stenting and CABG 04/15/24, and ICM EF 40% pre-op, 50% post-op per CT surgery note who is here for evaluation of SOB,
cough, and tachycardia. He started to notice the cough about 2 days after recent d/c. New cardiac meds for him included metoprolol (rather that diltiazem), Entresto, Farxiga, and Zetia. Metoprolol was stopped after d/c, but patient noted to be
tachycardic (110 BPM per patient on pulse ox), and diltiazem restarted. However, SOB and cough became so bad that he couldn't talk (O2 sats fine). He came to the ER, where he was seen to have JESSICA (creatinine 1.6). CXR and O2 sats normal. He was
given a breathing treatment, prednisone, guaifenesin, and IVF. This AM, he is 'feeling 80% better'. He is still coughing- it is non-productive. He denies any fever or chills.
Past Medical History
Past Medical History: Asthma, CAD, HTN, Hypercholesterolemia, NIDDM and Other (as above)
Social History
Tobacco: Other (smokes cigars, but has not post-op)
Personal:
Living: With Family
Family History
Family History: Reviewed & Not Pertinent
Allergies / Home Medications
Allergy/AdvReac Type Severity Reaction Status Date / Time
atorvastatin Allergy 'tore all Verified 05/02/24 17:37
my
ligaments'
lisinopril Allergy COUGH Verified 05/02/24 20:42
Kdtnjcp-EWA-NxS Reductase Allergy myalgias Verified 05/02/24 17:37
Inhibitor and torn
ligaments
�Medication �Instructions �Recorded �Confirmed �Type
coenzyme Q10 100 mg capsule (Co 100 mg PO DAILY 01/10/21 05/02/24 History
Q-10)
turmeric root extract 500 mg 500 mg PO DAILY 01/10/21 05/02/24 History
capsule
ascorbic acid (vitamin C) 1,000 mg 1,000 mg PO DAILY 11/23/23 05/02/24 History
tablet (Vitamin C)
colchicine 0.6 mg tablet 0.6 mg PO DAILYPRN PRN gout 11/23/23 05/02/24 History
fluticasone 100 mcg-salmeterol 50 1 inh inhalation R BID 11/23/23 05/02/24 History
mcg/dose blistr powdr for
inhalation (Advair Diskus)
multivitamin 1 tab PO DAILY 11/23/23 05/02/24 History
acetaminophen 325 mg tablet 650 mg (2 x 325 mg) PO Q4HPRN PRN 04/18/24 05/02/24 Rx
mild pain,headache,temp >101F #0
tabs
aspirin 81 mg chewable tablet 81 mg PO DAILY Blood clot 04/18/24 05/02/24 Rx
(Children's Aspirin) prevention/tx #30 tabs
clopidogrel 75 mg tablet 75 mg PO DAILY Blood clot 04/18/24 05/02/24 Rx
prevention/tx #90 tabs
dapagliflozin propanediol 10 mg 10 mg PO DAILY Heart Failure #30 04/18/24 05/02/24 Rx
tablet tabs
ezetimibe 10 mg tablet 10 mg PO DAILY High cholesterol 04/18/24 05/02/24 Rx
#30 tabs
metoprolol succinate 50 mg 50 mg PO DAILY Heart 04/18/24 05/02/24 Rx
tablet,extended release 24 hr disease/condition #30 tabs
(Toprol XL)
omega 4-asu-tjt-fish oil 1,200 mg 1 cap PO DAILY Supplement #0 caps 04/18/24 05/02/24 Rx
(144 mg-216 mg) capsule (Fish Oil)
pantoprazole 40 mg tablet,delayed 40 mg PO DAILY GI prophylaxis 04/18/24 05/02/24 Rx
release while on Plavix #30 tabs
sacubitril 24 mg-valsartan 26 mg 1 tab PO BID Heart Failure #60 tabs 04/18/24 05/02/24 Rx
tablet (Entresto)
Robitussin 20 ml PO Q4HPRN PRN cough 05/02/24 05/02/24 History
cyanocobalamin (vitamin B-12) 1,000 mcg PO DAILY 05/02/24 05/02/24 History
1,000 mcg tablet
cyclobenzaprine 5 mg tablet 5 mg PO TIDPRN PRN muscle spasms 05/02/24 05/02/24 History
diltiazem HCl 180 mg 180 mg PO HS 05/02/24 05/02/24 History
capsule,extended release 24 hr
Review of Systems
-
History Source: Patient
All other systems: Negative unless noted
Respiratory: Cough and Trouble Breathing
Physical Exam
Vital Signs
Temp Pulse Resp BP Pulse Ox
97.5 F 82 18 122/71 98
05/03/24 07:00 05/03/24 07:00 05/03/24 07:00 05/03/24 07:00 05/03/24 07:00
Lab Results
Troponin I 0.027 ng/ml 05/02/24 18:17
Svu-M-Stizxjptvrg Pept 167 pg/ml 05/02/24 18:17
Physical Exam
General: Well Developed, Well Nourished and No Apparent Distress
HEENT: Normocephalic and Anicteric
Respiratory: Clear and Non Labored Respirations
Cardiac: Regular Rhythm
Skin: Other (midsternal incision intact, well-approximated, no redness, drainage, or swelling)
Neuro: AO x 3
Psych: Calm
Impression / Plan
-
SOB/cough:
-CXR no acute abnormalities
-likely asthma exacerbation
-feels much improved s/p breathing treatment, steroids, guaifenesin
Tachycardia:
-noted on his pulse ox monitor at home
-all sinus on monitor and HR currently 80's. Could have been related to dehydration. He is s/p IVF. Follow telemetry.
JESSICA:
-improving with IVF
-remain off Entresto
CAD with hx stenting s/p recent CABG:
-S/P CABG 04/15/[address] England (in situ HO�LAD, SVG to high diagonal sequential to lower branch of the OM, SVG to RPLB)
-incision site looks good. I encouraged pillow splinting with coughing.
-on ASA/Plavix post-op
ICM:
-EF 40% pre-op, 50% post-op per op notes
-Entresto stopped with JESSICA- remain off at this time
-metoprolol stopped as OP with cough/SOB/asthma- OP notes suggest it was not tolerated in the past- remain off at this time
-diltiazem not ideal with CM, but considering above issues will continue at this time. If we resume his CM meds, will need to be one at a time with close monitoring.
HTN:
-stable
-would continue diltiazem
DM:
-per primary
JOSE ANGEL with hx stenting:
-continue AP
HLD:
-statin intolerance
-continue Zetia, PCSK9 as OP
Data Reviewed
-
EKG: Tracing Personally Visualized and interpreted (NSR with ST/T abnormality )
Radiology: Report Reviewed by me (CXR 05/02/24: No acute cardiopulmonary process.)
Medical Tests (Nuc Med, Echo etc): Report Reviewed by me (LAYNE: LAYNE 04/15/24: EF 40-45%. Stage I Diastolic dysfunction. Mild mitral regurgitation. Mild aortic sclerosis without stenosis. Mid ascending aorta is mildly dilated measuring 3.8 cm at the
level of the RPA. )
Labs: Labs Reviewed by me
[2024-05-03 08:07] LABS: ALT (SGPT) 40 U/L (0-50); AST (SGOT) 26 U/L (17-59); Albumin 3.8 g/dl (3.5-5.0); Alkaline Phosphatase 146 U/L (38-126); Blood Urea Nitrogen 23 mg/dl (9-20); Calcium 10.2 mg/dl (8.4-10.2); Carbon Dioxide 16 mmol/L (22-30); Chloride 107 mmol/L (98-107); Estimated Creatinine Clearance 38 ml/min; Glucose 151 mg/dl (70-99); Potassium 5.1 mmol/L (3.5-5.1); Sodium 136 mmol/L (135-145); Total Bilirubin 0.5 mg/dl (0.2-1.3); Total Protein 6.6 g/dl (6.3-8.2); eGFR 50.81
[2024-05-03] MEDS: ZETIA 10 MG PO (08:25)
[2024-05-03] MEDS: VITAMIN C 1000 MG PO (08:25)
[2024-05-03] MEDS: PLAVIX 75 MG PO (08:25)
[2024-05-03] MEDS: FARXIGA 10 MG PO (08:25)
[2024-05-03] MEDS: DELTASONE 40 MG PO (08:25)
[2024-05-03] MEDS: PROTONIX 40 MG PO (08:25)
[2024-05-03] MEDS: HEPARIN 5000 UNITS SC (08:26)
[2024-05-03] MEDS: LOW STRENGTH ASPIRIN 81 MG PO (08:26)
[2024-05-03] MEDS: VITAMIN B-12 1000 MCG PO (08:26)
[2024-05-03] MEDS: THERAGRAN 1 TABLET PO (08:28)
[2024-05-03] MEDS: NSS 500 IV (08:29)
[2024-05-03] MEDS: ADVAIR HFA 45/21 MCG INHALER 2 PUFF INH (08:32)
--- NOTE | 2024-05-03 09:02 | W.PN.HOSP.TC ---
Today's Communication/Plan
-
Cleared by cardiology for discharge today
Assessment / Plan
Assessment / Plan
HPI: 55-year-old male past medical history of coronary artery disease with history of multiple STEMI's/PCI's, ischemic cardiomyopathy, mild to moderate mitral insufficiency, hypertension, hyperlipidemia, asthma, diabetes, gout, carotid stenosis with
history of right carotid stent, who recently underwent CABG on 04/16 presenting with cough, shortness of breath and tachycardia. At the end of the previous discharge patient was started on various new medications including Zetia, Entresto, metoprolol.
#Persistent cough concern for medication induced versus asthma
WBC 12.5, No shift, 99.4 F
Suspect Entresto induced cough. Recommend permanently discontinuing Entresto
Has history of lisinopril cough during 2010 visit
Cough much improved status post Prednisone
Will discharge on burst course of prednisone for 5 days total, and xopenex inhalers
Follow-up with his PCP in 1 week
#JESSICA
Improved with IV fluids, creatinine 1.4 today, was 1.6 upon admission
Stable for discharge, needs repeat BMP with PCP in 1 week
#CAD/multiple cardiac stents
#CABG x 4 HO> LAD, SVG> D1 and OM, SVG> R PL and left atrial appendage exclusion with number 35 mm clip on 04/15/[address] England
-Long history of CAD (PCI to LAD for STEMI 2006, PCI to LCx for STEMI/cardiac arrest 2009, PCI to RCA for angina 01/10/2021).
Hx cardiac arrest 2009
-Continue diltiazem, also recommend resuming metoprolol upon discharge due to intermittently elevated heart rate
-Continue Plavix, aspirin, Zetia 10 mg daily
-Cleared by cardiology for discharge
#Ischemic cardiomyopathy EF 40%
-Continue Farxiga 10 mg daily
-Hold Entresto 1 tab p.o. twice daily(these meds are new from previous visit)
#Carotid artery stenosis
Status post carotid artery stent
#HTN�benign
Continue diltiazem 180 mg daily, Toprol XL 50 mg daily
#DM2
New diagnosis 04/09/2024 with A1c 6.7%
-Continue Farxiga and will give 1800 ADA low-fat diet
Other PMH:lLeft lower lobe pulmonary nodule 3 to 4 mm
incidental unilateral large tonsil found on intubation-Was recommended to follow-up with ENT
DVT prophylaxis
Continue subcu heparin
Full code
Physical Exam
General: No acute distress
HEENT: Normocephalic, Atraumatic, EOMI, MMM
Respiratory: Clear to Auscultation bilaterally
Cardiac: Normal S1/S2, Regular Rate and Rhythm
GI: Soft, Nontender, Nondistended, Normal Bowel Sounds
Extremities: No Clubbing, Cyanosis, or Edema
Neuro: Nonfocal/Grossly Intact
Psych: Calm, Cooperative
Derm: No Visible lesions
Anticipated Discharge: Today
Subjective/Interval History
-
Date of Service: May 03, 2024
Patient reports feeling much better. His cough is 80% improved. No shortness of breath. No chest pain, no palpitations. No fever, no vomiting. He is requesting discharge.
Objective Data
-
Labs:
Laboratory Results
05/03/24
07:08
WBC 10.8
Hgb 10.9 L
Hct 32.3 L
Plt Count 517 H
Sodium 136
Potassium 5.1
Chloride 107
Carbon Dioxide 16 L
BUN 23 H
Creatinine 1.4 H
Glucose 151 H
Calcium 10.2
Total Bilirubin 0.5
AST 26
ALT 40
Alkaline Phosphatase 146 H
Vital Signs:
Vital Signs
Temp Pulse Resp BP Pulse Ox
97.5 F 82 18 122/71 98
05/03/24 07:00 05/03/24 07:00 05/03/24 07:00 05/03/24 07:00 05/03/24 07:00
I&O
05/02/24 05/03/24 05/04/24
06:59 06:59 06:59
Intake Total 680 / 680
Output Total 600 / 600
Balance 80 / 80
[2024-05-03 11:00] VITALS: BP 143/76
--- NOTE | 2024-05-03 11:42 | CM ---
med spa manager reviewed patient's chart and met with patient and patient states that he lives with his spouse in a 2 story home with 3 steps to enter, patient is independent with adl's and ambulation, no dme.
Pharmacy; [facility]
PCP: Dr. Barney
[2024-05-03 15:00] VITALS: BP 130/72
--- NOTE | 2024-05-03 15:19 | W.DCSUMMARY ---
Discharge Summary
Discharge Data
Date of Admission: 05/02/24
Date of Discharge: 05/03/24
-
Pending Results: No
Hospital Course
Discharge diagnoses:
Probable Entresto induced cough, less likely asthma induced cough
Rapid atrial fibrillation
Acute kidney injury superimposed on stage III chronic kidney disease
History of mild intermittent asthma
Chronic normocytic anemia
Thrombocytosis
Consults: Cardiology
Echocardiogram:
Normal left ventricular size, wall thickness and systolic function.
LV ejection fraction is 50-55% .
Mild mitral regurgitation.
Mild tricuspid regurgitation.
When compared with the previous report from 04/15/2024 the reported ejection
fraction is increased. Previously estimated 40 to 45%.
Hospital course:
78-year-old male with a past medical history coronary artery disease with history of multiple STEMI's/PCI's, ischemic cardiomyopathy, mild to moderate mitral insufficiency, hypertension, hyperlipidemia, asthma, diabetes, gout, carotid stenosis with
history of right carotid stent, who recently underwent CABG on 04/16/24, was admitted for cough, shortness of breath and tachycardia. At the end of the previous hospitalization, patient was started on various new medications including Zetia,
Entresto, metoprolol. Patient does have a history of lisinopril induced cough.
Patient's Entresto was permanently discontinued. He was treated with prednisone, bronchodilators. He reports his breathing dramatically improved.
Patient was also found to have acute kidney injury. His creatinine upon admission was 1.6, it was 1.1 two weeks ago. He received IV fluids, and his creatinine improved to 1.4 on the day of discharge.
Patient was found to be in rapid atrial fibrillation. His heart rate was elevated in the 100s-110s upon admission. Cardiology felt this was due to dehydration. They recommended continuing diltiazem 180 mg at bedtime. Patient's had
discontinued his metoprolol a few days prior to admission as there was concern that this was causing his cough. Patient's heart rate improved on the diltiazem and IV fluids, but was still intermittently high. It is recommended that he resume
metoprolol upon discharge.
Patient is medically stable for discharge. He needs to follow-up with his primary care doctor in 1 week. He needs to have a repeat BMP at that time. He has been counseled to avoid all quii-smm-exdzdyc NSAID medications. He is discharged on
prednisone 40 mg daily for 3 more days, and Xopenex inhaler as needed.
Disposition: Home self-care
Discharge planning: Required 39 minutes
Discharge Plan
-
Patient Disposition: Home (Routine Discharge)
Discharge Diagnosis/Procedures: Probable medication induced cough, acute kidney injury, coronary artery disease with recent coronary artery bypass graft surgery, cardiomyopathy, hypertension, diabetes, carotid artery stenosis with history of
stenting
Condition: Fair
Diet: Low Fat, Low Cholesterol and Diabetic, Carb Controlled
Activity: As tolerated
Driving Restrictions: As prior to admission
Blood Work: BMP with your PCP in 1 week
Activity Restrictions/Additional Instructions:
Please drink fluids with electrolytes, to help with your kidney function.
Please avoid all omaj-nhm-ikkpylz NSAID medications such as ibuprofen, naproxen, Aleve, Motrin, Advil. These medications will worsen your kidney function.
Stop Entresto, this is likely the reason for your cough.
Please follow-up with your primary care doctor in 1 week. Recommend you get repeat blood work/BMP with your primary care doctor at that time.
Referrals:
Marcial Barney DO [Family Provider] - in one week
Prescriptions:
New
prednisone 20 mg Tablet
40 mg PO DAILY 3 Days Qty: 6 0RF
levalbuterol HCl 1.25 mg/0.5 mL solution for nebulization
1.25 mg inhalation Q4H PRN (Reason: shortness of breath or wheezing) Qty: 30 0RF
Continued
coenzyme Q10 [Co Q-10] 100 MG capsule
100 mg PO DAILY
turmeric root extract 500 MG capsule
500 mg PO DAILY
multivitamin Tablet
1 tab PO DAILY
colchicine 0.6 mg Tablet
0.6 mg PO DAILYPRN PRN (Reason: gout)
fluticasone propion-salmeterol [Advair Diskus] 100-50 mcg/dose Blister With Device
1 inh INHALATION R BID
ascorbic acid (vitamin C) [Vitamin C] 1,000 mg Tablet
1,000 mg PO DAILY
ezetimibe 10 mg Tablet
10 mg PO DAILY Qty: 30 1RF
acetaminophen 325 mg Tablet
650 mg PO Q4HPRN PRN (Reason: mild pain,headache,temp >101F ) Qty: 0 0RF
aspirin [Children's Aspirin] 81 mg Tablet,Chewable
81 mg PO DAILY Qty: 30 1RF
dapagliflozin propanediol 10 mg Tablet
10 mg PO DAILY Qty: 30 1RF
clopidogrel 75 MG tablet
75 mg PO DAILY Qty: 90 5RF
pantoprazole 40 mg Tablet,Delayed Release (Dr/Ec)
40 mg PO DAILY Qty: 30 1RF
omega 1-tsv-cvr-fish oil [Fish Oil] 1,200 (144-216) mg Capsule
1 cap PO DAILY Qty: 0 0RF
metoprolol succinate [Toprol XL] 50 mg tablet extended release 24 hr
50 mg PO DAILY Qty: 30 1RF
diltiazem HCl 180 mg capsule,extended release 24hr
180 mg PO HS
cyanocobalamin (vitamin B-12) 1,000 mcg Tablet
1,000 mcg PO DAILY
cyclobenzaprine 5 mg tablet
5 mg PO TIDPRN PRN (Reason: muscle spasms)
Robitussin
20 ml PO Q4HPRN PRN (Reason: cough)
Discontinued
Entresto 24-26 mg Tablet
1 tab PO BID Qty: 60 1RF
Discharge Orders:
Discharge Patient (As Directed); Ordered 05/03/24
Ordered By: Mina Diaz
Discharge Date and Time
Discharge Date/Time: 05/03/24 15:38
Print Language: [id number]
[2024-05-03 15:24] VITALS: BMI 25.8
== END 2024-05-03 15:38 | disposition home or self-care (01) | DRG 204 ==
LOC: 4 WEST ACU 20:47
PROVIDERS: Clinical Nurse Specialist Family Health; Emergency Medicine; ADMITTING PHYSICIAN Hospitalist; ATTENDING PHYSICIAN Family Medicine; CONSULT PHYSICIAN Internal Medicine Cardiovascular Disease; EMERGENCY PHYSICIAN Emergency Medicine; FAMILY PHYSICIAN Family Medicine
DX: R05.8 Other specified cough (principal); N17.9 Acute kidney failure, unspecified; T46.5X5A Adverse effect of other antihypertensive drugs, initial encounter; I12.9 Hypertensive chronic kidney disease with stage 1 through stage 4 chronic kidney disease, or unspecified chronic kidney disease; N18.30 Chronic kidney disease, stage 3 unspecified; D75.839 Thrombocytosis, unspecified; I25.10 Atherosclerotic heart disease of native coronary artery without angina pectoris; E11.9 Type 2 diabetes mellitus without complications; I25.5 Ischemic cardiomyopathy; E86.0 Dehydration; I25.2 Old myocardial infarction
CPT/HCPCS: 71046; 80053; 83880; 84484; 85025; 85610; 85730; 87811; 93005; 93306; 94640; 99285; 99406

== ENCOUNTER 2024-06-11 08:31 | Outpatient (RCR) | payer OTHER, SELFPAY | END 2024-06-11 23:59 | disposition home or self-care (01) | LOC: CRHB 08:31 | PROVIDERS: Internal Medicine Cardiovascular Disease; ATTENDING PHYSICIAN Internal Medicine | DX: I25.10 Atherosclerotic heart disease of native coronary artery without angina pectoris (principal); Z95.1 Presence of aortocoronary bypass graft | CPT/HCPCS: G0422; G0423 ==

== ENCOUNTER 2024-06-20 08:25 | Outpatient (RCR) | payer OTHER, SELFPAY | END 2024-06-20 23:59 | disposition home or self-care (01) | LOC: CRHB 08:25 | PROVIDERS: ATTENDING PHYSICIAN Internal Medicine | DX: Z95.1 Presence of aortocoronary bypass graft (principal) | CPT/HCPCS: G0422; G0423 ==

== ENCOUNTER → 2024-10-17 08:56 | Outpatient (REF) | payer OTHER, SELFPAY | LOC: HWRAD 08:56 | PROVIDERS: ATTENDING PHYSICIAN Internal Medicine Cardiovascular Disease; FAMILY PHYSICIAN Family Medicine | DX: I65.23 Occlusion and stenosis of bilateral carotid arteries (principal) | CPT/HCPCS: 93880 ==

== ENCOUNTER → 2024-10-20 08:16 | Outpatient (REF) | payer OTHER, SELFPAY | LOC: HWCARD 08:16 | PROVIDERS: ATTENDING PHYSICIAN Otolaryngology Facial Plastic Surgery; FAMILY PHYSICIAN Family Medicine | DX: Z01.818 Encounter for other preprocedural examination (principal); D10.7 Benign neoplasm of hypopharynx | CPT/HCPCS: 93005 ==